=== PATIENT | female | born 1960 | race African-American/Black ===

== ENCOUNTER 2017-02-20 03:07 | Emergency (ER) | payer OTHER ==
[~2017-02-20] VITALS: Ht 182.9 cm; Wt 159.0 kg
[~2017-02-20 03:07] MED LIST: ALBU18HF INHALATION; ASPI325T4 PO; CARV12.579 PO; DONE10TA7 PO; GLIM4TAB PO; GLYB5TAB3 PO; HYDR4TAB PO; HYDR4TAB51 PO; ISOS60TA PO; LISI20TA11 PO; NIFE60TA36 PO; ONDA8TAB83 PO; PANT40TA3 PO; PARO-37 PO; SITA100T8 PO; ZOLP10TA5 PO
[2017-02-20 03:11] VITALS: Ht 182.9 cm; Wt 159.0 kg
--- NOTE | 2017-02-20 03:39 | ERD ---
ER Documentation Chief Complaint Date/Time DATE: 02/20/17 TIME: 03:38 Chief Complaint back pain, right knee pain HPI 57-year-old female presents here in emergency department for complaints of lower back pain and right knee pain after falling off a chair today. Patient was trying to sit down, landed on her buttock, started to have the pain afterwards. Patient describes the pain as throbbing pain, 6/10 scale, not better or worse with anything. Patient did not take any medications for pain. Patient also is complaining of right knee pain, since she twisted it when she fell. Describes the pain as throbbing pain, 6/0 scale, is worse upon movement. ROS All systems reviewed and are negative except as per history of present illness. Medications Home Meds Active Scripts Hydrocodone/Acetaminophen (Menlo 5-325 Tablet) 1 Each Tablet, 1 TAB PO Q6H Y for SEVERE PAIN LEVEL 7-10, #20 TAB Prov:CORONA CHAO NP 02/20/17 Cyclobenzaprine Hcl* (Cyclobenzaprine Hcl*) 10 Mg Tablet, 10 MG PO TID, #15 TAB Prov:CORONA CHAO NP 02/20/17 Ibuprofen* (Motrin*) 600 Mg Tab, 600 MG PO Q6H Y for PAIN AND OR ELEVATED TEMP, #30 TAB Prov:CORONA CHAO NP 02/20/17 Sitagliptin* (Januvia*) 100 Mg Tab, 100 MG PO DAILY for 30 Days, TAB 2 Refills Prov:HERIBERTO CASTELLANOS 10/15/15 Zolpidem Tartrate* (Zolpidem Tartrate*) 10 Mg Tablet, 10 MG PO QHS Y for INSOMNIA, #30 Prov:HERIBERTO CASTELLANOS 10/15/15 Aspirin* (Aspirin*) 325 Mg Tablet, 81 MG PO DAILY for 30 Days Prov:HERIBERTO CASTELLANOS 10/15/15 Reported Medications Hydromorphone Hcl* (Dilaudid*) 4 Mg Tablet, 4 MG PO BID Y for PAIN, TAB 12/22/15 Glyburide* (Glyburide*) 5 Mg Tablet, 5 MG PO BID, #60 TAB 12/21/15 Ondansetron Hcl* (Ondansetron Hcl*) 8 Mg Tablet, 8 MG PO Q6H Y for NAUSEA AND OR VOMITING, TAB 10/30/15 Hydromorphone Hcl* (Hydromorphone Hcl*) 4 Mg Tablet, 4 MG PO Q4H Y for PAIN, TAB 10/30/15 Paroxetine Hcl* (Paroxetine*) 20 Mg Tablet, 20 MG PO DAILY, TAB 10/30/15 Albuterol Sulfate* (Ventolin HFA*) 18 Gm Hfa.aer.ad, 2 PUFF INHALATION Q4H, #1 INHALER 10/30/15 Glimepiride* (Glimepiride*) 4 Mg Tablet, 4 MG PO DAILY, #30 07/10/15 Carvedilol* (Carvedilol*) 12.5 Mg Tablet, 12.5 MG PO BID, #30 07/10/15 Isosorbide Mononitrate* (Isosorbide Mononitrate*) 60 Mg Tab.er.24h, 60 MG PO DAILY, #30 07/10/15 Nifedipine* (Adalat CC*) 60 Mg Tablet.sa, 60 MG PO DAILY, TAB.SA 10/06/14 Lisinopril* (Lisinopril*) 20 Mg Tablet, 20 MG PO DAILY, TAB 10/06/14 Donepezil* (Aricept*) 10 Mg Tablet, 10 MG PO DAILY, TAB 10/06/14 Pantoprazole* (Protonix*) 40 Mg Tablet.dr, 40 MG PO DAILY 03/04/13 Allergies Allergies: Coded Allergies: Penicillins (Verified Allergy, Unknown, 12/21/15) PMhx/Soc History of Surgery: Yes (hysterectomy, left knee, BILATERAL BREAST, BILATERAL WRIST ) Anesthesia Reaction: No Hx Neurological Disorder: No Hx Respiratory Disorders: Yes (asthma) Hx Cardiac Disorders: Yes (HTN, heart disease) Hx Psychiatric Problems: No Hx Miscellaneous Medical Probl: Yes (diabetic) Hx Alcohol Use: No Hx Substance Use: No Hx Tobacco Use: No FmHx Family History: No coronary disease, No diabetes, No other Physical Exam Vitals Vital Signs Date Time Temp Pulse Resp B/P Pulse Ox O2 Delivery O2 Flow Rate FiO2 02/20/17 03:11 98.2 80 20 124/84 98 Physical Exam GENERAL: The patient is well developed and appropriate for usual state of health, in no apparent distress. CHEST: Clear to auscultation bilaterally. There are no rales, wheezes or rhonchi. HEART: Regular rate and rhythm. No murmurs, clicks, rubs or gallops. No S3 or S4. ABDOMEN: Soft, nontender and nondistended. Good bowel sounds. No rebound or guarding. No gross peritonitis. No gross organomegaly or masses. No Tse sign or McBurney point tenderness. BACK: No midline or flank tenderness. Tenderness on palpation on the lower back , with muscle spasms noted. EXTREMITIES: Able to do full range of motion of the right knee without any restriction. No deformity, no tenderness on palpation. Equal pulses bilaterally. There is no peripheral clubbing, cyanosis or edema. No focal swelling or erythema. Full range of motion. Grossly neurovascularly intact. NEURO: Alert and oriented. Cranial nerves 2-12 intact. Motor strength in all 4 extremities with 5/5 strength. Sensation grossly intact. Normal speech and gait. SKIN: There is no apparent rash or petechia. The skin is warm and dry. HEMATOLOGIC AND LYMPHATIC: There is no evidence of excessive bruising or lymphedema. No gross cervical, axillary, or inguinal lymphadenopathy. Results 24 hrs Laboratory Tests Test 02/20/17 05:08 Bedside Glucose 222mg/dL Current Medications Medications (Trade) Dose Ordered Sig/Tanvi Route PRN Reason Start Time Stop Time Status Last Admin Dose Admin Ibuprofen (Motrin) 600 mg ONCE ONCE PO 02/20/17 05:30 02/20/17 05:31 02/20/17 05:13 Patient was given medication for pain here in emergency department, after treatment, patient verbalized feeling much better. Patient's pain is improved. PROCEDURE: XR Lumbar Spine. CLINICAL INDICATION: Back pain after fall TECHNIQUE: AP, lateral and cone-down lateral view of the lumbar spine were obtained. COMPARISON: CT lumbar spine of 11/21/2015 FINDINGS: No acute fracture or dislocation seen. Facet hypertrophy in lower lumbar spine. Mild degenerative disk changes L2-3 through L5-S1. Inferior vena cava filter. Degenerative changes in visualized lower thoracic spine. Round metallic radiodensity likely artifacts projected over left upper quadrant of abdomen. IMPRESSION: Degenerative changes. No acute fracture seen. Inferior vena cava filter. Please see above. RPTAT: HJES .Lucio Moran MD, MD Date Time Electronically viewed and signed by .Lucio Moran MD, on 02/20/2017 05:12 .S/ CC: CORONA CHAO [address] [employer] Procedures/MDM Medical Decision Making: Patient's pain is most likely consistent with a back contusion. There is no suspicion for neurovascular compromise. Patient has intact sensation and circulation of the affected extremity and distal extremities. No incontinence, no suspicion for cauda equina syndrome, no saddle anesthesia, no symptoms of any acute bacterial infection, no symptoms of any perirectal abscesses, pilonidal cyst.There is low suspicion for septic arthritis. Patient does not have any fever. No symptoms of any aortic dissection or aortic aneurysm. Radiology exam does not show any fractures. Patient's right knee pain most likely is consistent with a right knee sprain, low suspicion for any fracture, able to do full range of motion without any or should patient, no deformity. Radiology exams of the right knee not indicated at this time. Disposition: Home. Patient is given prescription for ibuprofen for mild to moderate pain, Menlo for severe pain, Flexeril for muscle spasm. Patient was advised to avoid heavy lifting , apply warm compresses on affected area. Patient was advised that if symptoms are worse, numbness, tingling, high fever, unable to move joint, worsening symptoms, to return to emergency department immediately. Otherwise, patient is advised to follow up with the primary care doctor in 5-7 days for reevaluation of symptoms. Departure Diagnosis: Primary Impression: Back contusion Encounter type: initial encounter Laterality: unspecified laterality Qualified Code: S20.229A - Back contusion, unspecified laterality, initial encounter Additional Impression: Knee sprain Encounter type: initial encounter Involved ligament of knee: unspecified ligament Laterality: left Qualified Code: S83.92XA - Sprain of left knee, unspecified ligament, initial encounter Condition: Stable Patient Instructions: Contusion, Back Additional Instructions: Patient is given prescription for ibuprofen for mild to moderate pain, tramadol for severe pain, Flexeril for muscle spasm. Patient was advised to avoid heavy lifting , apply warm compresses on affected area. Patient was advised that if symptoms are worse, numbness, tingling, high fever, unable to move joint, worsening symptoms, to return to emergency department immediately. Otherwise, patient is advised to follow up with the primary care doctor in 5-7 days for reevaluation of symptoms. CORONA CHAO NP Feb 20, 2017 03:39
--- NOTE | 2017-02-20 05:12 | RADRPT ---
PROCEDURE: XR Lumbar Spine. CLINICAL INDICATION: Back pain after fall TECHNIQUE: AP, lateral and cone-down lateral view of the lumbar spine were obtained. COMPARISON: CT lumbar spine of 11/21/2015 FINDINGS: No acute fracture or dislocation seen. Facet hypertrophy in lower lumbar spine. Mild degenerative d isk changes L2-3 through L5-S1. Inferior vena cava filter. Degenerative changes in visualized lowe r thoracic spine. Round metallic radiodensity likely artifacts projected over left upper quadrant of abdomen. IMPRESSION: Degenerative changes. No acute fracture seen. Inferior vena cava filter. Please see above. RPTAT: HJES .Lucio Moran MD, MD Date Time Electronically viewed and signed by .Lucio Moran MD, MD on 02/20/2017 05:12 .S/
[2017-02-20] MEDS ORDERED: IBUP-1542 PO (05:23)
[2017-02-20] MEDS ORDERED: HYDR-906 PO (05:23)
[2017-02-20] MEDS ORDERED: CYCL-319 PO (05:23)
[2017-02-20] MEDS ORDERED: IBUPROFEN 600 MG TAB PO ONE (05:30)
== END 2017-02-20 05:36 | disposition home or self-care (01) ==
LOC: FTE 03:07
DX: S20.229A Contusion of unspecified back wall of thorax, initial encounter (principal); S83.92XA Sprain of unspecified site of left knee, initial encounter; J45.909 Unspecified asthma, uncomplicated; I10 Essential (primary) hypertension; I50.9 Heart failure, unspecified; E11.9 Type 2 diabetes mellitus without complications; W07.XXXA Fall from chair, initial encounter; Y92.9 Unspecified place or not applicable; Z79.82 Long term (current) use of aspirin; Z79.84 Long term (current) use of oral hypoglycemic drugs
CPT/HCPCS: 72100; 82962; Z7610

== ENCOUNTER 2017-03-06 22:12 | Emergency (ER) | END 2017-03-07 06:00 | disposition home or self-care (01) | DX: R07.9 Chest pain, unspecified (principal); D64.9 Anemia, unspecified; J45.909 Unspecified asthma, uncomplicated; I10 Essential (primary) hypertension; E11.9 Type 2 diabetes mellitus without complications; Z79.82 Long term (current) use of aspirin; Z79.84 Long term (current) use of oral hypoglycemic drugs | CPT/HCPCS: 36415; 71010; 80048; 84484; 85025; 85610; 85730; 93005; 93970; Z7502; Z7610 ==

== ENCOUNTER 2017-03-07 21:13 | Emergency (ER) | payer OTHER ==
[~2017-03-07] VITALS: Ht 182.9 cm; Wt 168.0 kg
[~2017-03-07 21:13] MED LIST changes: +ACET325T33 PO; +ALBU8.5H3 INH; +ALBUTEROL INHALER INH; +ARICEPT PO; +ASPI325T4; +ATOR10TA65 PO; +BECL8.7A5; +CARV6.2579 PO; +CELE100C85; +CHOLESTEROL; +CYCL-117; +CYCL-117 PO; +CYCL-319 PO; +DIAZ-90 PO; +DIAZ10TA4; +DIAZ10TA4 PO; +DIAZ10TA89; +DONE10TA7; +DONE5TAB46; +ENAL2.5T PO; +ESOM40CA; +FAMO-96 PO; +FERR27TA PO; +FLUC150T17 PO; +FLUO40CA PO; +FLUO40CA10 PO; +GREE1CAP PO; +HYDR-3498 PO; +HYDR-3612; +HYDR-762 PO; +HYDR-902 PO; +HYDR-906 PO; +IBUP-1542 PO; +IBUP800T25 PO; +ISOS60TA52 PO; +LAS20I PO; +LISI10TA PO; +LISI10TA2; +LISINOPRIL PO; +LOPE2CAP PO; +MAG355OR15 PO; +METF500T4 PO; +MONT10TA21; +MONT10TA21 PO; +NAPR-260 PO; +NASO17; +NASO17 NS; +NIFE30TA66; +NIFEDIPINE PO; +NO NEW MEDS; +OMEG100011 PO; +ONDA4TAB8 PO; +OXYC-281 PO; +OXYC-284 PO; +POTA20PA PO; +POTA20TA96 PO; +POTA8TAB2; +PRED20TA PO; +PROM6.25; +RANI150T5 PO; +RTPRO5; +SAME MEDS; +SIMV20TA PO; +SOTA80TA; +SOTA80TA PO; +VICES; +VITA100T7 PO; +VOLTAREN PO; +WARF7.5T PO; +ZOLP10TA; +ZOLP10TA PO; +ZYRTEC PO; +[UNRECOGNIZED DRUG - OTHER]
[2017-03-07 21:28] VITALS: Ht 182.9 cm; Wt 168.0 kg
--- NOTE | 2017-03-07 22:07 | ERD ---
ER Documentation Chief Complaint Date/Time DATE: 03/07/17 TIME: 22:04 Chief Complaint sp ground level fall, R knee pain, headache HPI 57-year-old female presents emergency department, brought in by ambulance from the streets. Complaining of right knee pain secondary to ground-level fall at around 21:00. Stated that she was walking on the sidewalk, talking to another person when she tripped and fell, landed on her right knee. She was able to walk after the fall. Stated that she was just here this morning. She normally walks with a walker. Stated that there was no changes in her walking. Stated that the only medication that would help her pain was Pettigrew 5 mg tablet. Denies headache, loss of consciousness, dizziness, blurry vision, changes in vision, photophobia, facial pain, ear pain, throat pain, difficulty swallowing, neck pain, shoulder pain, chest pain, cough, hemoptysis, abdominal pain, back pain, loss of appetite, nausea, vomiting, hematochezia, diarrhea, constipation, urinary symptoms, , the possibility of being , bladder and bowel incontinences, extremity weakness, extremity tenderness, numbness or tingling sensation, difficulty walking, recent travel, recent exposure to illness, recent antibiotic use in the last 3 months, fever, chills. Allergies to penicillin. Past medical history of asthma, hypertension, diabetes, hyperlipidemia. Surgical history is of hysterectomy, bilateral wrist surgery, bilateral hand surgery, left knee replacement, filter placement to the left side of her abdomen. Social: Not working at this time. Denies smoking, use of alcoholic beverages, use of illegal drugs. Physical examination: Right knee has no deformity with good and full range of motion. Patient refuses x-ray for this. Treatment: Pettigrew. [] y/o female presents to ED for []. Described as []. Pain rate of 0/0. Started while []. Worse when []. Relieved by []. Took [] with no relief. Denies headache, loss of consciousness, dizziness, blurry vision, changes in vision, photophobia, facial pain, ear pain, throat pain, difficulty swallowing, neck pain, shoulder pain, chest pain, cough, hemoptysis, abdominal pain, back pain, loss of appetite, nausea, vomiting, hematochezia, diarrhea, constipation, urinary symptoms, , the possibility of being , bladder and bowel incontinences, extremity weakness, extremity tenderness, numbness or tingling sensation, difficulty walking, recent travel, recent exposure to illness, recent antibiotic use in the last 3 months, fever, chills. Allergy: PMH: Family medical history: AO LMP: Medications: Surgery: Primary Social History: Denies smoking, use of alcohol, use of illegal drugs. ROS All systems reviewed and are negative except as per history of present illness. Medications Home Meds Active Scripts Hydrocodone/Acetaminophen (Pettigrew 5-325 Tablet) 1 Each Tablet, 1 TAB PO Q6H Y for SEVERE PAIN LEVEL 7-10, #20 TAB Prov:CORONA CHAO NP 02/20/17 Cyclobenzaprine Hcl* (Cyclobenzaprine Hcl*) 10 Mg Tablet, 10 MG PO TID, #15 TAB Prov:CORONA CHAO NP 02/20/17 Ibuprofen* (Motrin*) 600 Mg Tab, 600 MG PO Q6H Y for PAIN AND OR ELEVATED TEMP, #30 TAB Prov:CORONA CHAO NP 02/20/17 Sitagliptin* (Januvia*) 100 Mg Tab, 100 MG PO DAILY for 30 Days, TAB 2 Refills Prov:HERIBERTO CASTELLANOS 10/15/15 Zolpidem Tartrate* (Zolpidem Tartrate*) 10 Mg Tablet, 10 MG PO QHS Y for INSOMNIA, #30 Prov:HERIBERTO CASTELLANOS Norma 10/15/15 Aspirin* (Aspirin*) 325 Mg Tablet, 81 MG PO DAILY for 30 Days Prov:HERIBERTO CASTELLANOS 10/15/15 Reported Medications Atorvastatin Calcium (Atorvastatin Calcium) 10 Mg Tablet, 10 MG PO QHS, #30 TAB 03/07/17 Fluoxetine Hcl* (Fluoxetine Hcl*) 40 Mg Capsule, 40 MG PO DAILY, CAP 03/07/17 Metformin* (Glucophage*) 500 Mg Tab, 500 MG PO WITH BREAKFAST, #30 TAB 03/07/17 Hydrocodone/Acetaminophen (Pettigrew 10-325 Tablet) 1 Each Tablet, 1 EACH PO, TAB 03/07/17 Hydrocodone Bit-Acetaminophen (Hydrocodone Bit-APAP) 5-325MG Tablet, 1 TAB PO Q6H Y for PAIN, TAB 03/07/17 Hydromorphone Hcl* (Dilaudid*) 4 Mg Tablet, 4 MG PO BID Y for PAIN, TAB 12/22/15 Glyburide* (Glyburide*) 5 Mg Tablet, 5 MG PO BID, #60 TAB 12/21/15 Ondansetron Hcl* (Ondansetron Hcl*) 8 Mg Tablet, 8 MG PO Q6H Y for NAUSEA AND OR VOMITING, TAB 10/30/15 Hydromorphone Hcl* (Hydromorphone Hcl*) 4 Mg Tablet, 4 MG PO Q4H Y for PAIN, TAB 10/30/15 Paroxetine Hcl* (Paroxetine*) 20 Mg Tablet, 20 MG PO DAILY, TAB 10/30/15 Albuterol Sulfate* (Ventolin HFA*) 18 Gm Hfa.aer.ad, 2 PUFF INHALATION Q4H, #1 INHALER 10/30/15 Carvedilol* (Carvedilol*) 12.5 Mg Tablet, 12.5 MG PO BID, #30 07/10/15 Isosorbide Mononitrate* (Isosorbide Mononitrate*) 60 Mg Tab.er.24h, 60 MG PO DAILY, #30 07/10/15 Nifedipine* (Adalat CC*) 60 Mg Tablet.sa, 60 MG PO DAILY, TAB.SA 10/06/14 Lisinopril* (Lisinopril*) 20 Mg Tablet, 20 MG PO DAILY, TAB 10/06/14 Donepezil* (Aricept*) 10 Mg Tablet, 10 MG PO DAILY, TAB 10/06/14 Pantoprazole* (Protonix*) 40 Mg Tablet.dr, 40 MG PO DAILY 03/04/13 Discontinued Reported Medications Glimepiride* (Glimepiride*) 4 Mg Tablet, 4 MG PO DAILY, #30 07/10/15 Allergies Allergies: Coded Allergies: Penicillins (Unverified Allergy, Unknown, 03/07/17) PMhx/Soc History of Surgery: Yes (hysterectomy, left knee, BILATERAL BREAST, BILATERAL WRIST ) Anesthesia Reaction: No Hx Neurological Disorder: No Hx Respiratory Disorders: Yes (asthma) Hx Cardiac Disorders: Yes (HTN, heart disease) Hx Psychiatric Problems: No Hx Miscellaneous Medical Probl: Yes (diabetic) Hx Alcohol Use: No Hx Substance Use: No Hx Tobacco Use: No Physical Exam Vitals Vital Signs Date Time Temp Pulse Resp B/P Pulse Ox O2 Delivery O2 Flow Rate FiO2 03/07/17 23:45 98.3 101 20 98 Room Air 03/07/17 21:28 98.9 108 20 129/71 96 Physical Exam CONSTITUTIONAL: Well-appearing; well-nourished; in no apparent distress. HEAD: Normocephalic; atraumatic. EYES: Conjunctiva clear, sclera non-icteric, EOM intact. PERRL Ears: Hearing intact. EACs clear, TMs non-bulging, non-inflamed, translucent & mobile, ossicles normal appearance, No obstructions, no erythema, no discharges Nose: No obstructions. No polyps. No external lesions. Mucosa non-inflamed. No external lesions, septum and turbinates normal. No rhinorrhea. No discharges. Frontal sinus is non-tender to palpation. Maxillary sinus is non-tender to palpation. MOUTH: Moist mucous membranes, no lesion, no obstructions, no vesicles, no thrush, patent airway Throat: Uvula in midline. Right tonsil is +1 with no erythema, no exudate. Left tonsil is +1 with no erythema, no exudate. Tolerating secretions well. Good gag reflex. Patent airway. Neck: Supple, without lesions, bruits, or adenopathy. No mass. Thyroid non- enlarged and non-tender to palpation. CHEST: Symmetrical chest. Respirations even and not labored. No retractions noted. CARDIOVASCULAR: Normal S1, S2. RRR. No murmurs, gallops. RESPIRATORY: Normal chest excursion with respiration; breath sounds clear and equal bilaterally; no wheezes, rhonchi, or rales. Breathing even and unlabored. Speaking in clear, full, and complete sentences w/ ease. ABDOMEN: Normal bowel sounds normal. Soft, round, non-distended, non-guarding, no tenderness, no rebound, no organomegaly, no masses, no pulsating abdominal mass. No hernia. No peritoneal signs. : No CVA tenderness. BACK: Symmetrical shoulder. Spine is midline without deformity, tenderness. No evidence of trauma or deformity. PELVIS: Stable pelvis. No evidence of trauma or deformity. MUSCULOSKELETAL: Normal gait and station. No misalignment, asymmetry, crepitation, defects, tenderness, masses, effusions, decreased range of motion, instability, atrophy or abnormal strength or tone in the head, neck, spine, ribs , pelvis or extremities. No calf tenderness. Right knee has no deformity with good and full range of motion. NEUROVASCULAR: Distal pulses are present. Pedal pulse are present, equal, and normal. Capillary refills are < 2 seconds. NEUROLOGIC: Alert and oriented x4. Speaks full and clear sentences. Cranial Nerves II-XII normal. Sensation to pain, touch, and proprioception normal. Grossly unremarkable. No neurologic deficits. Romberg test is negative. PSYCHOLOGICAL: The patients mood and manner are appropriate. No hallucinations , delusions. Not SI. Not HI. Has the capacity to decide for self SKIN: Normal for age and ethnicity; warm; dry; good turgor; no apparent lesions or exudates. No rashes, hives, discoloration. Intact. Results 24 hrs Current Medications Medications (Trade) Dose Ordered Sig/Tanvi Route PRN Reason Start Time Stop Time Status Last Admin Dose Admin Acetaminophen/ Hydrocodone Bitart (Pettigrew (10/325)) 1 tab ONCE ONCE PO 03/07/17 22:30 03/07/17 22:31 DC 03/07/17 22:36 Procedures/MDM Examination: Please see physical examination. Disease process, medical treatment was explained to the patient and family member. They verbalized understanding and agreed with the diagnostic tests, medical treatment, and follow-up care. Re-evaluation: Denies headache, dizziness, blurry vision, neck pain, shoulder pain, chest pain, back pain, abdominal pain, nausea, vomiting. No episode of emesis in the emergency department. Alert and oriented 4. Speaks full and clear sentences. Respirations even and unlabored. Lung sounds clear to auscultation. Active bowel sounds. There is no right upper/right lower/ epigastric/left upper/left lower abdominal tenderness and light and deep palpation. Negative on Rovsings sign. Negative Mars sign. Able to jump 5 times without developing right-sided abdominal pain. No peritoneal signs. Ambulatory with steady gait. No neurovascular deficits. No neurological deficits. Musculoskeletal reexaminations are unremarkable. Patient stated there is no deficits at this time. Consultation: Differential diagnosis: Fracture versus contusion versus sprain. Medical decision makin-year-old female presents emergency department, brought in by ambulance from the streets. Complaining of right knee pain secondary to ground-level fall at around 21:00. Stated that she was walking on the sidewalk, talking to another person when she tripped and fell, landed on her right knee. She was able to walk after the fall. Stated that she was just here this morning. She normally walks with a walker. Stated that there was no changes in her walking. Stated that the only medication that would help her pain was Pettigrew 5 mg tablet. Patient's complaint, patient history about her complaint, my physical findings are consistent with my final diagnosis of knee pain. Medications prescribed are the following: None. Patient and family member are made aware of the side effects and adverse reactions of the medications prescribed. Instructed on when to seek emergent and medical attention in case allergic/anaphylactic reactions or severe side effects and or adverse reactions to medications. Patient and family member verbalized understanding. Patient instructed Instructed to follow-up with his PCP in 24-48 hours. Instructed to Call 911 for chest pain, shortness of breath. Advised to come back here in ED as soon as possible for severity of symptoms which includes but not limited to: any new symptoms; shortness of breath/difficulty of breathing; cardiovascular changes; severe gastrointestinal symptoms; signs and symptoms of bleeding and or infection; signs of compartment syndrome/neurovascular changes; neurological changes/deficits. Patient and family member verbalized understanding. Upon discharge, patient is alert and oriented x 4, speaks full and clear sentences, denies pain, has no neurological deficits, has no neurovascular deficits, difficulty of breathing. Breathing even and unlabored. Lung sounds are clear to auscultation. Not in distress. Appears comfortable. Ambulatory with steady gait. Appears satisfied with care provided here in ED. Departure Diagnosis: Primary Impression: Multiple complaints Additional Impression: Knee pain Condition: Stable Additional Instructions: Instructed to follow-up with his PCP in 24-48 hours. Instructed to Call 911 for chest pain, shortness of breath. Advised to come back here in ED as soon as possible for severity of symptoms which includes but not limited to: any new symptoms; shortness of breath/difficulty of breathing; cardiovascular changes; severe gastrointestinal symptoms; signs and symptoms of bleeding and or infection; signs of compartment syndrome/neurovascular changes; neurological changes/deficits. Patient and family member verbalized understanding. JULIUS DEWITT Mar 07, 2017 22:07
[2017-03-07] MEDS ORDERED: HYDROCODONE/APAP (10/325) TAB PO ONE (22:30)
[2017-03-07 23:45] VITALS: PULSE 101; RESP 20; TEMP 98.3
== END 2017-03-07 23:48 | disposition home or self-care (01) ==
LOC: FTE 21:13 → E/R 23:48
DX: M25.561 Pain in right knee (principal); R51 Headache; J45.909 Unspecified asthma, uncomplicated; I10 Essential (primary) hypertension; E11.9 Type 2 diabetes mellitus without complications; Z79.82 Long term (current) use of aspirin; Z79.84 Long term (current) use of oral hypoglycemic drugs
CPT/HCPCS: Z7502; Z7610; 99283

== ENCOUNTER 2017-03-30 12:50 | Emergency (ER) | payer OTHER ==
[~2017-03-30] VITALS: Ht 180.3 cm; Wt 152.7 kg
[~2017-03-30 12:50] MED LIST changes: -ACET325T33 PO; -ALBU8.5H3 INH; -ALBUTEROL INHALER INH; -ARICEPT PO; -ASPI325T4; -BECL8.7A5; -CARV6.2579 PO; -CELE100C85; -CHOLESTEROL; -CYCL-117; -CYCL-117 PO; -DIAZ-90 PO; -DIAZ10TA4; -DIAZ10TA4 PO; -DIAZ10TA89; -DONE10TA7; -DONE5TAB46; -ENAL2.5T PO; -ESOM40CA; -FAMO-96 PO; -FERR27TA PO; -FLUC150T17 PO; -FLUO40CA10 PO; -GLIM4TAB PO; -GREE1CAP PO; -HYDR-3612; -HYDR-762 PO; -IBUP800T25 PO; -ISOS60TA52 PO; -LAS20I PO; -LISI10TA PO; -LISI10TA2; -LISINOPRIL PO; -LOPE2CAP PO; -MAG355OR15 PO; -MONT10TA21; -MONT10TA21 PO; -NAPR-260 PO; -NASO17; -NASO17 NS; -NIFE30TA66; -NIFEDIPINE PO; -NO NEW MEDS; -OMEG100011 PO; -ONDA4TAB8 PO; -OXYC-281 PO; -OXYC-284 PO; -POTA20PA PO; -POTA20TA96 PO; -POTA8TAB2; -PRED20TA PO; -PROM6.25; -RANI150T5 PO; -RTPRO5; -SAME MEDS; -SIMV20TA PO; -SOTA80TA; -SOTA80TA PO; -VICES; -VITA100T7 PO; -VOLTAREN PO; -WARF7.5T PO; -ZOLP10TA; -ZOLP10TA PO; -ZYRTEC PO; -[UNRECOGNIZED DRUG - OTHER]
[2017-03-30 12:52] VITALS: Ht 180.3 cm; Wt 152.7 kg
[2017-03-30] MEDS ORDERED: DIAZEPAM 2 MG TAB PO ONE (14:00)
[2017-03-30] MEDS ORDERED: KETOROLAC 60 MG INJ IM STA (14:00)
[2017-03-30] MEDS ORDERED: LIDOCAINE 2% VISC 15 ML CUP PO ONE (14:00)
[2017-03-30] MEDS ORDERED: HYDROCODONE/APAP (10/325) TAB PO ONE (15:30)
[2017-03-30] MEDS ORDERED: IBUP-1542 PO (16:14)
--- NOTE | 2017-03-30 16:39 | ERD ---
ER Documentation Chief Complaint Date/Time DATE: 03/30/17 TIME: 16:18 Chief Complaint CAME IN VIA EMS DUE TO MECHANICAL FALL WITH SHOULDERS AND R KNEE PAIN HPI This is a 57-year-old female with history of chronic pain that presents to the ER stating that earlier last night she fell off of her bed landing on her shoulder and hernia. Patient denies any numbness or tingling of her left shoulder. She states that pain is severe and worse whenever she lifts her shoulder. Patient also complaining of right knee pain which she has had chronically. Patient is also stating that she has a mass in her throat and that because of this she is having pain with swallowing. Patient denies any difficulty in swallowing. She denies any chest pain or shortness of breath. ROS 12 point review of systems was done, all negative except per HPI. Medications Home Meds Active Scripts Ibuprofen* (Motrin*) 600 Mg Tab, 600 MG PO Q6, #30 TAB Prov:HESHAM FERREIRA 03/30/17 Hydrocodone/Acetaminophen ([place] 5-325 Tablet) 1 Each Tablet, 1 TAB PO Q6H Y for SEVERE PAIN LEVEL 7-10, #20 TAB Prov:CORONA CHAO NP 02/20/17 Cyclobenzaprine Hcl* (Cyclobenzaprine Hcl*) 10 Mg Tablet, 10 MG PO TID, #15 TAB Prov:CORONA CHAO NP 02/20/17 Ibuprofen* (Motrin*) 600 Mg Tab, 600 MG PO Q6H Y for PAIN AND OR ELEVATED TEMP, #30 TAB Prov:CORONA CHAO NP 02/20/17 Sitagliptin* (Januvia*) 100 Mg Tab, 100 MG PO DAILY for 30 Days, TAB 2 Refills Prov:HERIBERTO CASTELLANOS 10/15/15 Zolpidem Tartrate* (Zolpidem Tartrate*) 10 Mg Tablet, 10 MG PO QHS Y for INSOMNIA, #30 Prov:HERIBERTO CASTELLANOS. 10/15/15 Aspirin* (Aspirin*) 325 Mg Tablet, 81 MG PO DAILY for 30 Days Prov:HERIBERTO CASTELLANOS 10/15/15 Reported Medications Atorvastatin Calcium (Atorvastatin Calcium) 10 Mg Tablet, 10 MG PO QHS, #30 TAB 03/07/17 Fluoxetine Hcl* (Fluoxetine Hcl*) 40 Mg Capsule, 40 MG PO DAILY, CAP 03/07/17 Metformin* (Glucophage*) 500 Mg Tab, 500 MG PO WITH BREAKFAST, #30 TAB 03/07/17 Hydrocodone/Acetaminophen ([place] 10-325 Tablet) 1 Each Tablet, 1 EACH PO, TAB 03/07/17 Hydrocodone Bit-Acetaminophen (Hydrocodone Bit-APAP) 5-325MG Tablet, 1 TAB PO Q6H Y for PAIN, TAB 03/07/17 Hydromorphone Hcl* (Dilaudid*) 4 Mg Tablet, 4 MG PO BID Y for PAIN, TAB 12/22/15 Glyburide* (Glyburide*) 5 Mg Tablet, 5 MG PO BID, #60 TAB 12/21/15 Ondansetron Hcl* (Ondansetron Hcl*) 8 Mg Tablet, 8 MG PO Q6H Y for NAUSEA AND OR VOMITING, TAB 10/30/15 Hydromorphone Hcl* (Hydromorphone Hcl*) 4 Mg Tablet, 4 MG PO Q4H Y for PAIN, TAB 10/30/15 Paroxetine Hcl* (Paroxetine*) 20 Mg Tablet, 20 MG PO DAILY, TAB 10/30/15 Albuterol Sulfate* (Ventolin HFA*) 18 Gm Hfa.aer.ad, 2 PUFF INHALATION Q4H, #1 INHALER 10/30/15 Carvedilol* (Carvedilol*) 12.5 Mg Tablet, 12.5 MG PO BID, #30 07/10/15 Isosorbide Mononitrate* (Isosorbide Mononitrate*) 60 Mg Tab.er.24h, 60 MG PO DAILY, #30 07/10/15 Nifedipine* (Adalat CC*) 60 Mg Tablet.sa, 60 MG PO DAILY, TAB.SA 10/06/14 Lisinopril* (Lisinopril*) 20 Mg Tablet, 20 MG PO DAILY, TAB 10/06/14 Donepezil* (Aricept*) 10 Mg Tablet, 10 MG PO DAILY, TAB 10/06/14 Pantoprazole* (Protonix*) 40 Mg Tablet.dr, 40 MG PO DAILY 03/04/13 Allergies Allergies: Coded Allergies: Penicillins (Unverified Allergy, Unknown, 03/30/17) PMhx/Soc History of Surgery: Yes (hysterectomy, left knee, BILATERAL BREAST, BILATERAL WRIST ) Anesthesia Reaction: No Hx Neurological Disorder: No Hx Respiratory Disorders: Yes (asthma) Hx Cardiac Disorders: Yes (HTN, heart disease) Hx Psychiatric Problems: No Hx Miscellaneous Medical Probl: Yes (diabetic) Hx Alcohol Use: No Hx Substance Use: No Hx Tobacco Use: No Smoking Status: Never smoker Physical Exam Vitals Vital Signs Date Time Temp Pulse Resp B/P Pulse Ox O2 Delivery O2 Flow Rate FiO2 03/30/17 12:52 98.5 92 18 142/88 98 Physical Exam GENERAL: The patient is well developed and appropriate for usual state of health , in no apparent distress. HEENT: Atraumatic. NECK: C-spine is soft and supple. There is no cervical lymphadenopathy. CHEST: Clear to auscultation bilaterally. There are no rales, wheezes or rhonchi. HEART: Regular rate and rhythm. No murmurs, clicks, rubs or gallops. BACK: No midline or flank tenderness. EXTREMITIES: The left shoulder is without obvious asymmetry or deformity when compared to the right shoulder. No surface trauma, ecchymosis, crepitus. No bony deformity or prominence of the humeral head. No erythema, warmth, swelling. Not tender to palpation over the clavicle, AC joint, acromion, scapula or humeral head. Not told to position of the bicipital groove or soft tissues. Patient has normal and nonpainful range of motion. Negative drop arm test. Patient does not have any neck pain, she is not tender along the C- spine. She does not have any elbow pain. Right knee: Patient has painful extension and flexion of the right knee. There is no erythema, warmth to touch, edema. NEURO: Alert and oriented. SKIN: There is no apparent rash or petechia. The skin is warm and dry. Results 24 hrs Current Medications Medications (Trade) Dose Ordered Sig/Tanvi Route PRN Reason Start Time Stop Time Status Last Admin Dose Admin Ketorolac Tromethamine (Toradol) 60 mg ONCE STAT IM 03/30/17 14:00 03/30/17 14:02 DC 03/30/17 14:28 Diazepam (Valium) 2 mg ONCE ONCE PO 03/30/17 14:00 03/30/17 14:02 DC 03/30/17 14:28 Lidocaine (Xylocaine (Viscous)) 15 ml ONCE ONCE PO 03/30/17 14:00 03/30/17 14:02 DC 03/30/17 14:29 Acetaminophen/ Hydrocodone Bitart ([place] (10/325)) 1 tab ONCE ONCE PO 03/30/17 15:30 03/30/17 15:31 DC 03/30/17 15:30 Procedures/MDM I reviewed patient's past medical records and patient has been to the ER multiple times and other ER is for chronic pain. I pulled the patient's cures report and patient just received 120 Dilaudid less than 2 weeks ago. Patient refused imaging and stated that she wanted her [place], Valium so that she could go home and eat. I explained to patient that it was important to get imaging of her shoulder especially since she fell, however patient does not want them. Suspicion for cardiac etiology of shoulder pain is low as patient does not have any chest pain and her pain started after trauma. At this time I do not feel comfortable sending patient home with narcotic medications as she has a medical history of drug-seeking behavior and has a lot of narcotics at home. Patient will be sent home with ibuprofen. I did give patient 1 Valium and one [place] in the ER. Patient is to follow-up with her primary care doctor within 1-2 days return to ER sooner if symptoms worsen. My medical decision making shared with the patient understands and agrees with plan. Departure Diagnosis: Primary Impression: Drug-seeking behavior Additional Impression: Multiple complaints Condition: Stable Patient Instructions: Chronic Pain Additional Instructions: Call your primary care doctor TOMORROW for an appointment during the next 1-2 days.See the doctor sooner or return here if your condition worsens before your appointment time. HESHAM FERREIRA Mar 30, 2017 16:39
[2017-03-30 16:59] VITALS: BP 128/68; PULSE 71; RESP 18; TEMP 98.5
== END 2017-03-30 17:00 | disposition home or self-care (01) ==
LOC: FTE 12:50
DX: S49.92XA Unspecified injury of left shoulder and upper arm, initial encounter (principal); E11.9 Type 2 diabetes mellitus without complications; I10 Essential (primary) hypertension; J45.909 Unspecified asthma, uncomplicated; S49.91XA Unspecified injury of right shoulder and upper arm, initial encounter; W06.XXXA Fall from bed, initial encounter; Y92.9 Unspecified place or not applicable; Z76.5 Malingerer [conscious simulation]; Z79.82 Long term (current) use of aspirin; Z79.84 Long term (current) use of oral hypoglycemic drugs
CPT/HCPCS: 96372; J1885; Z7502; Z7610

== ENCOUNTER 2017-04-15 23:55 | Emergency (ER) | payer SELFPAY ==
[~2017-04-15] VITALS: Ht 157.5 cm; Wt 165.9 kg
[2017-04-16 00:13] VITALS: Ht 157.5 cm; Wt 165.9 kg
== END 2017-04-16 02:26 | disposition left against medical advice (07) ==
LOC: E/R 04-16 00:01
DX: Z53.21 Procedure and treatment not carried out due to patient leaving prior to being seen by health care provider (principal)

== ENCOUNTER 2017-04-22 18:21 | Emergency (ER) | payer OTHER ==
[~2017-04-22] VITALS: Ht 165.1 cm; Wt 162.0 kg
[2017-04-22 18:31] VITALS: Ht 165.1 cm; Wt 162.0 kg
[2017-04-22] MEDS ORDERED: AZIT500T3 PO (21:38)
[2017-04-22] MEDS ORDERED: CETI10CA PO (21:38)
[2017-04-22] MEDS ORDERED: FLUT9.9S NASAL (21:38)
[2017-04-22] MEDS ORDERED: KETOROLAC 60 MG INJ IM STA (21:56)
--- NOTE | 2017-04-22 22:07 | ERD ---
ER Documentation Chief Complaint Date/Time DATE: 04/22/17 TIME: 22:04 Chief Complaint She is complaining of runny nose nasal congestion and mucus running back her throat and some headache that started today. HPI 57-year-old female presents to emergency department for complaints of runny nose nasal congestion, mucus running back the throat, postnasal drip, throat discomfort and headache that started today. Patient describes the pain as sharp pain,6/10 scale, not better or worse with anything. Patient feels like she has a sinus infection, has been taking Benadryl at home with only mild relief. Denies any stridor or shortness of breath. Patient denies any chest pain. Denies any other symptoms. Patient states that because of this, she feels nauseous. ROS All systems reviewed and are negative except as per history of present illness. Medications Home Meds Active Scripts Cetirizine Hcl* (Zyrtec*) 10 Mg Capsule, 10 MG PO DAILY, #30 TAB.CHEW Prov:CORONA CHAO NP 04/22/17 Fluticasone Propionate (Flonase Allergy Relief) 9.9 Ml [place].susp, 1 SPRAY NASAL BID, #1 BOTTLE TO EACH NOSTRIL Prov:CORONA CHAO NP 04/22/17 Azithromycin* (Zithromax*) 500 Mg Tablet, 500 MG PO DAILY for 3 Days, TAB Prov:CORONA CHAO NP 04/22/17 Ibuprofen* (Motrin*) 600 Mg Tab, 600 MG PO Q6, #30 TAB Prov:HESHAM FERREIRA 03/30/17 Hydrocodone/Acetaminophen ([place] 5-325 Tablet) 1 Each Tablet, 1 TAB PO Q6H Y for SEVERE PAIN LEVEL 7-10, #20 TAB Prov:CORONA CHAO NP 02/20/17 Cyclobenzaprine Hcl* (Cyclobenzaprine Hcl*) 10 Mg Tablet, 10 MG PO TID, #15 TAB Prov:CORONA CHAO NP 02/20/17 Ibuprofen* (Motrin*) 600 Mg Tab, 600 MG PO Q6H Y for PAIN AND OR ELEVATED TEMP, #30 TAB Prov:CORONA CHAO NP 02/20/17 Sitagliptin* (Januvia*) 100 Mg Tab, 100 MG PO DAILY for 30 Days, TAB 2 Refills Prov:HERIBERTO CASTELLANOS. 10/15/15 Zolpidem Tartrate* (Zolpidem Tartrate*) 10 Mg Tablet, 10 MG PO QHS Y for INSOMNIA, #30 Prov:HERIBERTO CASTELLANOS. 10/15/15 Aspirin* (Aspirin*) 325 Mg Tablet, 81 MG PO DAILY for 30 Days Prov:HERIBERTO CASTELLANOS. 10/15/15 Reported Medications Atorvastatin Calcium (Atorvastatin Calcium) 10 Mg Tablet, 10 MG PO QHS, #30 TAB 03/07/17 Fluoxetine Hcl* (Fluoxetine Hcl*) 40 Mg Capsule, 40 MG PO DAILY, CAP 03/07/17 Metformin* (Glucophage*) 500 Mg Tab, 500 MG PO WITH BREAKFAST, #30 TAB 03/07/17 Hydrocodone/Acetaminophen ([place] 10-325 Tablet) 1 Each Tablet, 1 EACH PO, TAB 03/07/17 Hydrocodone Bit-Acetaminophen (Hydrocodone Bit-APAP) 5-325MG Tablet, 1 TAB PO Q6H Y for PAIN, TAB 03/07/17 Hydromorphone Hcl* (Dilaudid*) 4 Mg Tablet, 4 MG PO BID Y for PAIN, TAB 12/22/15 Glyburide* (Glyburide*) 5 Mg Tablet, 5 MG PO BID, #60 TAB 12/21/15 Ondansetron Hcl* (Ondansetron Hcl*) 8 Mg Tablet, 8 MG PO Q6H Y for NAUSEA AND OR VOMITING, TAB 10/30/15 Hydromorphone Hcl* (Hydromorphone Hcl*) 4 Mg Tablet, 4 MG PO Q4H Y for PAIN, TAB 10/30/15 Paroxetine Hcl* (Paroxetine*) 20 Mg Tablet, 20 MG PO DAILY, TAB 10/30/15 Albuterol Sulfate* (Ventolin HFA*) 18 Gm Hfa.aer.ad, 2 PUFF INHALATION Q4H, #1 INHALER 10/30/15 Carvedilol* (Carvedilol*) 12.5 Mg Tablet, 12.5 MG PO BID, #30 07/10/15 Isosorbide Mononitrate* (Isosorbide Mononitrate*) 60 Mg Tab.er.24h, 60 MG PO DAILY, #30 12/20/15 Nifedipine* (Adalat CC*) 60 Mg Tablet.sa, 60 MG PO DAILY, TAB.SA 10/06/14 Lisinopril* (Lisinopril*) 20 Mg Tablet, 20 MG PO DAILY, TAB 10/06/14 Donepezil* (Aricept*) 10 Mg Tablet, 10 MG PO DAILY, TAB 10/06/14 Pantoprazole* (Protonix*) 40 Mg Tablet.dr, 40 MG PO DAILY 03/04/13 Allergies Allergies: Coded Allergies: Penicillins (Unverified Allergy, Unknown, 03/30/17) PMhx/Soc History of Surgery: Yes (hysterectomy, left knee, BILATERAL BREAST, BILATERAL WRIST ) Anesthesia Reaction: No Hx Neurological Disorder: No Hx Respiratory Disorders: Yes (asthma) Hx Cardiac Disorders: Yes (HTN, heart disease) Hx Psychiatric Problems: No Hx Miscellaneous Medical Probl: Yes (diabetic) Hx Alcohol Use: No Hx Substance Use: No Hx Tobacco Use: No Smoking Status: Never smoker FmHx Family History: No coronary disease, No diabetes, No other Physical Exam Vitals Vital Signs Date Time Temp Pulse Resp B/P Pulse Ox O2 Delivery O2 Flow Rate FiO2 04/22/17 18:31 98.6 98 20 120/65 98 Physical Exam GENERAL: The patient is well developed and appropriate for usual state of health, in no apparent distress. HEENT: Atraumatic. Ears: Normal tympanic membrane, no erythema or bulging. No ear canal swelling. No ear discharge. Nose: normal nasal turbinates, nasal turbinates, tenderness on palpation of maxillary sinuses, postnasal drip noted.. Throat: oropharynx clear. Nasal drip noted. No lymphadenopathy. CHEST: Clear to auscultation bilaterally. There are no rales, wheezes or rhonchi. HEART: Regular rate and rhythm. No murmurs, clicks, rubs or gallops. No S3 or S4. ABDOMEN: Soft, nontender and nondistended. Good bowel sounds. No rebound or guarding. No gross peritonitis. No gross organomegaly or masses. No Tse sign or McBurney point tenderness. BACK: No midline or flank tenderness. EXTREMITIES: Equal pulses bilaterally. There is no peripheral clubbing, cyanosis or edema. No focal swelling or erythema. Full range of motion. Grossly neurovascularly intact. NEURO: Alert and oriented. Cranial nerves 2-12 intact. Motor strength in all 4 extremities with 5/5 strength. Sensation grossly intact. Normal speech and gait. SKIN: There is no apparent rash or petechia. The skin is warm and dry. HEMATOLOGIC AND LYMPHATIC: There is no evidence of excessive bruising or lymphedema. No gross cervical, axillary, or inguinal lymphadenopathy. Results 24 hrs Laboratory Tests Test 04/22/17 21:52 Bedside Glucose 191mg/dL Current Medications Medications (Trade) Dose Ordered Sig/Tanvi Route PRN Reason Start Time Stop Time Status Last Admin Dose Admin Ketorolac Tromethamine (Toradol) 60 mg ONCE STAT IM 04/22/17 21:56 04/22/17 21:58 DC Toradol was given for pain. Tolerated medication well. Procedures/MDM Medical decision making: Patient symptoms most likely is consistent with acute bacterial rhinosinusitis. At this time, no symptoms of any abscesses facial abscess, sepsis, patient appears once hemodynamically stable. No symptoms of strep throat. Patient was given Flonase, azithromycin, Zyrtec, Zofran, is advised to follow-up with primary doctor in 2-3 days for reevaluation of symptoms. Patient was advised to return to emergency department for any worsening symptoms. Disposition: Home. Stable. Departure Diagnosis: Primary Impression: Acute rhinosinusitis Condition: Stable Patient Instructions: Sinusitis, CORONA Garner NP Apr 22, 2017 22:07
[2017-04-22] MEDS ORDERED: ONDA4TAB14 PO (22:21)
[2017-04-24] MEDS ORDERED: MELA5TAB21 PO (13:13)
== END 2017-04-22 22:25 | disposition home or self-care (01) ==
LOC: FTE 18:21
DX: J01.90 Acute sinusitis, unspecified (principal); I10 Essential (primary) hypertension; J45.909 Unspecified asthma, uncomplicated; E11.9 Type 2 diabetes mellitus without complications; Z79.82 Long term (current) use of aspirin; Z79.84 Long term (current) use of oral hypoglycemic drugs
CPT/HCPCS: 82962; 96372; J1885; Z7502

== ENCOUNTER 2017-04-24 10:57 | Emergency (ER) | END 2017-04-24 14:02 | disposition home or self-care (01) | DX: L29.9 Pruritus, unspecified (principal); I10 Essential (primary) hypertension; J45.909 Unspecified asthma, uncomplicated; E11.9 Type 2 diabetes mellitus without complications; Z79.82 Long term (current) use of aspirin; Z79.84 Long term (current) use of oral hypoglycemic drugs | CPT/HCPCS: 96372; J1100; Z7502 ==

== ENCOUNTER 2017-05-29 14:10 | Emergency (ER) | payer OTHER ==
[~2017-05-29] VITALS: Wt 136.4 kg
[~2017-05-29 14:10] MED LIST changes: +AZIT500T3 PO; +CETI10CA PO; +FLUT9.9S NASAL; +MELA5TAB21 PO; +ONDA4TAB14 PO
[2017-05-29 14:14] VITALS: Wt 136.4 kg
--- NOTE | 2017-05-29 16:46 | RADRPT ---
PROCEDURE: US Lower extremity Venous. CLINICAL INDICATION: Bilateral leg swelling TECHNIQUE: Multiple sonographic images of the bilateral lower extremity deep venous system was obt ained utilizing thacker scale, color-flow, compressive sonography and doppler imaging with augmentation . COMPARISON: 03/06/2017 FINDINGS: There is normal compressibility, phasicity and Doppler flow within the bilateral common femoral, fem oral and popliteal veins. Visualized portions of the calf veins are patent. IMPRESSION: No sonographic evidence for deep venous thrombosis. RPTAT:AAJJ Physician Shanell Date Time Electronically viewed and signed by Kayley Frankel Physician on 05/29/2017 16:46 /
--- NOTE | 2017-05-29 17:18 | ERD ---
ER Documentation Chief Complaint Chief Complaint bib ems cc back pain, conversing on cellphone during triage ROS All systems reviewed and are negative except as per history of present illness. Medications Home Meds Active Scripts Melatonin (Melatonin) 5 Mg Tab.ir.er, 5 MG PO QHS, #30 Prov:MIRA BAUGH PA-C 04/24/17 Ondansetron (Ondansetron Odt) 4 Mg Tab.rapdis, 4 MG PO Q8 Y for NAUSEA AND/OR VOMITING, #30 TAB Prov:CORONA CHAO NP 04/22/17 Cetirizine Hcl* (Zyrtec*) 10 Mg Capsule, 10 MG PO DAILY, #30 TAB.CHEW Prov:CORONA CHAO NP 04/22/17 Fluticasone Propionate (Flonase Allergy Relief) 9.9 Ml [place].susp, 1 SPRAY NASAL BID, #1 BOTTLE TO EACH NOSTRIL Prov:CORONA CHAO NP 04/22/17 Azithromycin* (Zithromax*) 500 Mg Tablet, 500 MG PO DAILY for 3 Days, TAB Prov:CORONA CHAO NP 04/22/17 Ibuprofen* (Motrin*) 600 Mg Tab, 600 MG PO Q6, #30 TAB Prov:HESHAM FERREIRA 03/30/17 Hydrocodone/Acetaminophen ([place] 5-325 Tablet) 1 Each Tablet, 1 TAB PO Q6H Y for SEVERE PAIN LEVEL 7-10, #20 TAB Prov:CORONA CHAO NP 02/20/17 Cyclobenzaprine Hcl* (Cyclobenzaprine Hcl*) 10 Mg Tablet, 10 MG PO TID, #15 TAB Prov:CORONA CHAO NP 02/20/17 Ibuprofen* (Motrin*) 600 Mg Tab, 600 MG PO Q6H Y for PAIN AND OR ELEVATED TEMP, #30 TAB Prov:CORONA CHAO NP 02/20/17 Sitagliptin* (Januvia*) 100 Mg Tab, 100 MG PO DAILY for 30 Days, TAB 2 Refills Prov:HERIBERTO CASTELLANOS 10/15/15 Zolpidem Tartrate* (Zolpidem Tartrate*) 10 Mg Tablet, 10 MG PO QHS Y for INSOMNIA, #30 Prov:HERIBERTO CASTELLANOS. 10/15/15 Aspirin* (Aspirin*) 325 Mg Tablet, 81 MG PO DAILY for 30 Days Prov:HERIBERTO CASTELLANOS. 10/15/15 Reported Medications Atorvastatin Calcium (Atorvastatin Calcium) 10 Mg Tablet, 10 MG PO QHS, #30 TAB 03/07/17 Fluoxetine Hcl* (Fluoxetine Hcl*) 40 Mg Capsule, 40 MG PO DAILY, CAP 03/07/17 Metformin* (Glucophage*) 500 Mg Tab, 500 MG PO WITH BREAKFAST, #30 TAB 03/07/17 Hydrocodone/Acetaminophen ([place] 10-325 Tablet) 1 Each Tablet, 1 EACH PO, TAB 03/07/17 Hydrocodone Bit-Acetaminophen (Hydrocodone Bit-APAP) 5-325MG Tablet, 1 TAB PO Q6H Y for PAIN, TAB 03/07/17 Hydromorphone Hcl* (Dilaudid*) 4 Mg Tablet, 4 MG PO BID Y for PAIN, TAB 12/22/15 Glyburide* (Glyburide*) 5 Mg Tablet, 5 MG PO BID, #60 TAB 12/21/15 Ondansetron Hcl* (Ondansetron Hcl*) 8 Mg Tablet, 8 MG PO Q6H Y for NAUSEA AND OR VOMITING, TAB 10/30/15 Hydromorphone Hcl* (Hydromorphone Hcl*) 4 Mg Tablet, 4 MG PO Q4H Y for PAIN, TAB 10/30/15 Paroxetine Hcl* (Paroxetine*) 20 Mg Tablet, 20 MG PO DAILY, TAB 10/30/15 Albuterol Sulfate* (Ventolin HFA*) 18 Gm Hfa.aer.ad, 2 PUFF INHALATION Q4H, #1 INHALER 10/30/15 Carvedilol* (Carvedilol*) 12.5 Mg Tablet, 12.5 MG PO BID, #30 07/10/15 Isosorbide Mononitrate* (Isosorbide Mononitrate*) 60 Mg Tab.er.24h, 60 MG PO DAILY, #30 07/10/15 Nifedipine* (Adalat CC*) 60 Mg Tablet.sa, 60 MG PO DAILY, TAB.SA 10/06/14 Lisinopril* (Lisinopril*) 20 Mg Tablet, 20 MG PO DAILY, TAB 10/06/14 Donepezil* (Aricept*) 10 Mg Tablet, 10 MG PO DAILY, TAB 10/06/14 Pantoprazole* (Protonix*) 40 Mg Tablet.dr, 40 MG PO DAILY 03/04/13 Allergies Allergies: Coded Allergies: Penicillins (Unverified Allergy, Unknown, 03/30/17) PMhx/Soc History of Surgery: Yes (hysterectomy, left knee, BILATERAL BREAST, BILATERAL WRIST ) Anesthesia Reaction: No Hx Neurological Disorder: No Hx Respiratory Disorders: Yes (asthma) Hx Cardiac Disorders: Yes (HTN, heart disease, A-fib) Hx Psychiatric Problems: No Hx Miscellaneous Medical Probl: Yes (DM) Hx Alcohol Use: No Hx Substance Use: Yes (Medical Marijuana) Hx Tobacco Use: No Physical Exam Vitals Vital Signs Date Time Temp Pulse Resp B/P Pulse Ox O2 Delivery O2 Flow Rate FiO2 05/29/17 14:14 98.6 93 20 126/74 96 Physical Exam Const: Morbidly obese 57-year-old female in no acute distress Head: Atraumatic Eyes: Normal Conjunctiva ENT: Normal External Ears, Nose and Mouth. Neck: Full range of motion..~ No meningismus. Resp: Clear to auscultation bilaterally Cardio: Regular rate and rhythm, no murmurs Abd: Soft, non tender, non distended. Normal bowel sounds Skin: No petechiae or rashes Back: No midline or flank tenderness Ext: Marked swelling of legs bilaterally with left lower extremity swollen more. No pain or warmth. Neur: Awake and alert Psych: Normal Mood and Affect Procedures/MDM Morbidly obese 57-year-old female presenting with a chief complaint of possible lymph node moving from the right side to the left side. Patient states the pain is 6 out of 10. Has been evaluated by PCP who gave her a referral to outpatient surgery. Patient has history of driving over 10 hours and unilateral leg swelling. Ultrasound was obtained and read as unremarkable. I have no suspicion for PE, DVT, ACS, or other cardiopulmonary pathologies. I have no suspicion for serious bacterial infection. No palpated lymph nodes on physical examination. No tenderness palpation. Abdominal exam unremarkable. Most likely diagnosis is swelling of unknown etiology. Patient has pain medications at home. Have told the patient that she needs to follow-up with the outpatient surgery recommended by PCP. That we do not do surgery here in the emergency department. There are no indications for emergent surgery consult. I have spoke with the patient regarding their condition and future management. They have verbally responded that they understand their status and treatment plan. The patients vitals are stable, and their current condition is appropriate for discharge. The patient will be given discharge instructions with return precautions. Departure Diagnosis: Primary Impression: Leg swelling Condition: Stable Patient Instructions: Lymphedema Additional Instructions: Follow up with your PCP within the next 1-3 days for a more thorough evaluation and a possible referral to a specialist. Return the the emergency department immediately if symptoms worsen or change. If you have any questions regarding medications, ask your pharmacist or us before you leave. If any adverse reactions occur while taking your medications, discontinue the treatment and return to the emergency department immediately. Take your medications as directed, and complete the entire course of treatment. UZIEL ROCHA PA-C May 29, 2017 17:18
[2017-05-29 18:20] VITALS: BP 128/74; PULSE 74; RESP 20
[2017-06-01] MEDS ORDERED: MELO-210 PO (05:57)
== END 2017-05-29 18:21 | disposition home or self-care (01) ==
LOC: FTE 14:10
DX: R22.43 Localized swelling, mass and lump, lower limb, bilateral (principal); J45.909 Unspecified asthma, uncomplicated; I10 Essential (primary) hypertension; E11.9 Type 2 diabetes mellitus without complications; Z79.82 Long term (current) use of aspirin; Z79.84 Long term (current) use of oral hypoglycemic drugs
CPT/HCPCS: 93970; Z7502

== ENCOUNTER 2017-05-30 20:54 | Emergency (ER) | payer OTHER ==
[~2017-05-30] VITALS: Ht 182.9 cm; Wt 161.0 kg
[2017-05-30 20:55] VITALS: Ht 182.9 cm; Wt 161.0 kg
--- NOTE | 2017-05-30 22:59 | ERD ---
ER Documentation Chief Complaint Chief Complaint c/o bilateral knee pain. States was bumped @ grocery store. HPI The patient is a 57-year-old female, presenting to the ER because of bilateral knee pain after she bumped into the pole at the supermarket while using the shopping electric cart. She denies any other injury, c/o suicidal in the emergency department and has a plan; however she does not want to disclose the plan. She is not cooperative with history and physical. She denies smokes nor drinks Past medical history: Asthma, hypertension, CAD, atrial fibrillation, diabetes mellitus, dyslipidemia, chronic pain syndrome Past surgical history: Hysterectomy, left knee ROS All systems reviewed and are negative except as per history of present illness. Medications Home Meds Active Scripts Melatonin (Melatonin) 5 Mg Tab.ir.er, 5 MG PO QHS, #30 Prov:MIRA BAUGH PA-C 04/24/17 Ondansetron (Ondansetron Odt) 4 Mg Tab.rapdis, 4 MG PO Q8 Y for NAUSEA AND/OR VOMITING, #30 TAB Prov:CORONA CHAO NP 04/22/17 Cetirizine Hcl* (Zyrtec*) 10 Mg Capsule, 10 MG PO DAILY, #30 TAB.CHEW Prov:CORONA CHAO NP 04/22/17 Fluticasone Propionate (Flonase Allergy Relief) 9.9 Ml [place].susp, 1 SPRAY NASAL BID, #1 BOTTLE TO EACH NOSTRIL Prov:CORONA CHAO NP 04/22/17 Azithromycin* (Zithromax*) 500 Mg Tablet, 500 MG PO DAILY for 3 Days, TAB Prov:CORONA CHAO NP 04/22/17 Ibuprofen* (Motrin*) 600 Mg Tab, 600 MG PO Q6, #30 TAB Prov:HESHAM FERREIRA 03/30/17 Hydrocodone/Acetaminophen ([place] 5-325 Tablet) 1 Each Tablet, 1 TAB PO Q6H Y for SEVERE PAIN LEVEL 7-10, #20 TAB Prov:CORONA CHAO NP 02/20/17 Cyclobenzaprine Hcl* (Cyclobenzaprine Hcl*) 10 Mg Tablet, 10 MG PO TID, #15 TAB Prov:CORONA CHAO NP 02/20/17 Ibuprofen* (Motrin*) 600 Mg Tab, 600 MG PO Q6H Y for PAIN AND OR ELEVATED TEMP, #30 TAB Prov:CORONA CHAO REALTIME [employer] REPORTER 02/20/17 Sitagliptin* (Januvia*) 100 Mg Tab, 100 MG PO DAILY for 30 Days, TAB 2 Refills Prov:HERIBERTO CASTELLANOS. 10/15/15 Zolpidem Tartrate* (Zolpidem Tartrate*) 10 Mg Tablet, 10 MG PO QHS Y for INSOMNIA, #30 Prov:HERIBERTO CASTELLANOS . 10/15/15 Aspirin* (Aspirin*) 325 Mg Tablet, 81 MG PO DAILY for 30 Days Prov:HERIBERTO CASTELLANOS . 10/15/15 Reported Medications Atorvastatin Calcium (Atorvastatin Calcium) 10 Mg Tablet, 10 MG PO QHS, #30 TAB 03/07/17 Fluoxetine Hcl* (Fluoxetine Hcl*) 40 Mg Capsule, 40 MG PO DAILY, CAP 03/07/17 Metformin* (Glucophage*) 500 Mg Tab, 500 MG PO WITH BREAKFAST, #30 TAB 03/07/17 Hydrocodone/Acetaminophen ([place] 10-325 Tablet) 1 Each Tablet, 1 EACH PO, TAB 03/07/17 Hydrocodone Bit-Acetaminophen (Hydrocodone Bit-APAP) 5-325MG Tablet, 1 TAB PO Q6H Y for PAIN, TAB 03/07/17 Hydromorphone Hcl* (Dilaudid*) 4 Mg Tablet, 4 MG PO BID Y for PAIN, TAB 12/22/15 Glyburide* (Glyburide*) 5 Mg Tablet, 5 MG PO BID, #60 TAB 12/21/15 Ondansetron Hcl* (Ondansetron Hcl*) 8 Mg Tablet, 8 MG PO Q6H Y for NAUSEA AND OR VOMITING, TAB 10/30/15 Hydromorphone Hcl* (Hydromorphone Hcl*) 4 Mg Tablet, 4 MG PO Q4H Y for PAIN, TAB 10/30/15 Paroxetine Hcl* (Paroxetine*) 20 Mg Tablet, 20 MG PO DAILY, TAB 10/30/15 Albuterol Sulfate* (Ventolin HFA*) 18 Gm Hfa.aer.ad, 2 PUFF INHALATION Q4H, #1 INHALER 10/30/15 Carvedilol* (Carvedilol*) 12.5 Mg Tablet, 12.5 MG PO BID, #30 07/10/15 Isosorbide Mononitrate* (Isosorbide Mononitrate*) 60 Mg Tab.er.24h, 60 MG PO DAILY, #30 07/10/15 Nifedipine* (Adalat CC*) 60 Mg Tablet.sa, 60 MG PO DAILY, TAB.SA 10/06/14 Lisinopril* (Lisinopril*) 20 Mg Tablet, 20 MG PO DAILY, TAB 10/06/14 Donepezil* (Aricept*) 10 Mg Tablet, 10 MG PO DAILY, TAB 10/06/14 Pantoprazole* (Protonix*) 40 Mg Tablet.dr, 40 MG PO DAILY 03/04/13 Allergies Allergies: Coded Allergies: Penicillins (Unverified Allergy, Unknown, 03/30/17) PMhx/Soc History of Surgery: Yes (hysterectomy, left knee, BILATERAL BREAST, BILATERAL WRIST ) Anesthesia Reaction: No Hx Neurological Disorder: No Hx Respiratory Disorders: Yes (asthma) Hx Cardiac Disorders: Yes (HTN, heart disease, A-fib) Hx Psychiatric Problems: No Hx Miscellaneous Medical Probl: Yes (DM) Hx Alcohol Use: No Hx Substance Use: Yes (Medical Marijuana) Hx Tobacco Use: No Physical Exam Vitals Vital Signs Date Time Temp Pulse Resp B/P Pulse Ox O2 Delivery O2 Flow Rate FiO2 05/30/17 20:55 97.2 71 18 111/55 98 Physical Exam Const: No acute distress. Head: Atraumatic. Eyes: Normal Conjunctiva. ENT: Normal External Ears, Nose and Mouth. Neck: Full range of motion. No meningismus. Resp: Clear to auscultation bilaterally. Cardio: Regular rate and rhythm. Abd: Soft, non distended, normal bowel sounds, non tender. Skin: No petechiae or rashes. Back: No midline or flank tenderness. Ext: Bilateral knee with minimal and vague tenderness, no calf tenderness Neur: Awake and alert. No focal deficit Psych: Normal Mood and Affect. Result Diagram: 05/30/17 0838 05/30/178 Results 24 hrs Laboratory Tests Test 05/30/17 23:18 05/31/17 02:00 White Blood Count 5.310^3/ul Red Blood Count 4.1610^6/ul Hemoglobin 11.1g/dl Hematocrit 35.5% Mean Corpuscular Volume 85.3fl Mean Corpuscular Hemoglobin 26.7pg Mean Corpuscular Hemoglobin Concent 31.3g/dl Red Cell Distribution Width 15.1% Platelet Count 50991^3/UL Mean Platelet Volume 11.2fl Neutrophils % 62.8% Lymphocytes % 21.6% Monocytes % 11.4% Eosinophils % 3.6% Basophils % 0.4% Nucleated Red Blood Cells % 0.0/100WBC Neutrophils # 3.310^3/ul Lymphocytes # 1.110^3/ul Monocytes # 0.610^3/ul Eosinophils # 0.210^3/ul Basophils # 0.010^3/ul Nucleated Red Blood Cells # 0.010^3/ul Sodium Level 139mmol/L Potassium Level 4.8mmol/L Chloride Level 100mmol/L Carbon Dioxide Level 30mmol/L Anion Gap 14 Blood Urea Nitrogen 12mg/dl Creatinine 0.76mg/dl Glucose Level 166mg/dl Calcium Level 9.3mg/dl Total Bilirubin 0.1mg/dl Direct Bilirubin 0.00mg/dl Indirect Bilirubin 0.1mg/dl Aspartate Amino Transf (AST/SGOT) 23IU/L Alanine Aminotransferase (ALT/SGPT) 27IU/L Alkaline Phosphatase 109IU/L Total Protein 6.7g/dl Albumin 3.6g/dl Globulin 3.10g/dl Albumin/Globulin Ratio 1.16 Salicylates Level < 1.0mg/dl Acetaminophen Level < 10.0ug/ml Ethyl Alcohol Level < 10.0mg/dl Urine Color STRAW Urine Clarity CLEAR Urine pH 5.0 Urine Specific [place] 1.006 Urine Ketones NEGATIVEmg/dL Urine Nitrite NEGATIVEmg/dL Urine Bilirubin NEGATIVEmg/dL Urine Urobilinogen NEGATIVEmg/dL Urine Leukocyte Esterase NEGATIVELeu/ul Urine Hemoglobin NEGATIVEmg/dL Urine Glucose NEGATIVEmg/dL Urine Total Protein NEGATIVEmg/dl Urine Opiates Screen Positive Urine Barbiturates Negative Urine Amphetamines Screen Negative Urine Benzodiazepines Screen Positive Urine Cocaine Screen Negative Urine Cannabinoids Negative Current Medications Medications (Trade) Dose Ordered Sig/Tanvi Route PRN Reason Start Time Stop Time Status Last Admin Dose Admin Ibuprofen (Motrin) 600 mg ONCE ONCE PO 05/31/17 02:00 05/31/17 02:01 DC Procedures/MDM [place] [id number] Radiology Main Line: [phone] DIAGNOSTIC IMAGING REPORT Patient: ROSSANA YE : 1960 Age: 57 Sex: F MR #: [id number] DOS: 05/30/17 2305 Ordering MD: UZIEL STARKS MD Location: E/R Room/Bed: PROCEDURE: Right knee x-ray CLINICAL INDICATION: Pain. TECHNIQUE: AP, lateral and oblique views of the knee were obtained. COMPARISON: CR KNEE 11/21/2015 FINDINGS: There is normal mineralization. No acute fracture or dislocation is seen. There is severe narrowing of the medial and patellofemoral compartments and moderately severe narrowing of the lateral compartment. Superior and inferior patellar degenerative enthesopathic changes are present. No acute fracture or dislocation. Small suprapatellar joint effusion. Moderate pretibial soft tissue edema extends from the suprapatellar region to the pretibial bursa. IMPRESSION: 1. Severe medial and patellofemoral and moderately severe lateral compartmental degenerate narrowing. 2. Superior and inferior patellar degenerative enthesopathic changes. 3. Small suprapatellar joint effusion. 4. Anterior soft tissue edema. RPTAT: HRSR Physician Anneliese Date Time Electronically viewed and signed by Elliott Quiros Physician on 05/31/2017 02 :13 RR/ CC: UZIEL STARKS MD [place] [id number] Radiology Main Line: [phone] DIAGNOSTIC IMAGING REPORT Patient: ROSSANA YE : 1960 Age: 57 Sex: F MR #: [id number] DOS: 05/30/17 2305 Ordering MD: UZIEL STARKS MD Location: E/R Room/Bed: PROCEDURE: Left knee x-ray CLINICAL INDICATION: Pain. TECHNIQUE: AP, oblique and lateral views of the knee were obtained. COMPARISON: KNEE 05/31/2017; JUAN ANTONIO KNEE 11/21/2015 FINDINGS: Total left knee arthroplasty changes with posterior patellar resurfacing are present without evidence of a periprosthetic fracture or hardware loosening. Superior patellar degenerative enthesopathic changes are noted. Small osteochondroma arises from the proximal medial tibial metadiaphysis There is a small to moderate suprapatellar joint effusion. Anterior soft tissue edema extends from the suprapatellar region to the pretibial bursa. IMPRESSION: 1. Total left knee arthroplasty changes without evidence of a periprosthetic fracture or hardware loosening. 2. Superior patellar degenerative enthesopathic changes. 3. Osteochondroma arising from the proximal medial tibial metadiaphysis. 4. Small to moderate sized suprapatellar joint effusion. 5. Anterior soft tissue swelling. RPTAT: HRSR Physician Anneliese Date Time Electronically viewed and signed by Physician Anneliese on 05/31/2017 02 :17 RR/ CC: UZIEL STARKS MD MEDICAL MAKING DECISION: The patient is a 57-year-old female, presenting with acute suicidal ideation, acute bilateral knee pain. She was treated with Motrin for pain with good response The differential diagnoses considered include but are not limited to fracture, contusion, sprain, internal derangement, anxiety attack, panic attack, depression Departure Diagnosis: Primary Impression: Suicidal ideations Additional Impressions: Knee pain, bilateral Anemia Condition: Stable Comments She was evaluated by telepsychiatrist who put on 5150 hold UZIEL STARKS MD May 30, 2017 22:59
--- NOTE | 2017-05-30 22:59 | ERD ---
ER Documentation Chief Complaint Chief Complaint c/o bilateral knee pain. States was bumped @ grocery store. HPI The patient is a 57-year-old female, presenting to the ER because of bilateral knee pain after she bumped into the pole at the supermarket while using the shopping electric cart. She denies any other injury, c/o suicidal in the emergency department and has a plan; however she does not want to disclose the plan. She is not cooperative with history and physical. She denies smokes nor drinks Past medical history: Asthma, hypertension, CAD, atrial fibrillation, diabetes mellitus, dyslipidemia, chronic pain syndrome Past surgical history: Hysterectomy, left knee ROS All systems reviewed and are negative except as per history of present illness. Medications Home Meds Active Scripts Melatonin (Melatonin) 5 Mg Tab.ir.er, 5 MG PO QHS, #30 Prov:MIRA BAUGH PA-C 04/24/17 Ondansetron (Ondansetron Odt) 4 Mg Tab.rapdis, 4 MG PO Q8 Y for NAUSEA AND/OR VOMITING, #30 TAB Prov:CORONA CHAO NP 04/22/17 Cetirizine Hcl* (Zyrtec*) 10 Mg Capsule, 10 MG PO DAILY, #30 TAB.CHEW Prov:CORONA CHAO NP 04/22/17 Fluticasone Propionate (Flonase Allergy Relief) 9.9 Ml [place].susp, 1 SPRAY NASAL BID, #1 BOTTLE TO EACH NOSTRIL Prov:CORONA CHAO NP 04/22/17 Azithromycin* (Zithromax*) 500 Mg Tablet, 500 MG PO DAILY for 3 Days, TAB Prov:CORONA CHAO NP 04/22/17 Ibuprofen* (Motrin*) 600 Mg Tab, 600 MG PO Q6, #30 TAB Prov:HESHAM FERREIRA 03/30/17 Hydrocodone/Acetaminophen ([place] 5-325 Tablet) 1 Each Tablet, 1 TAB PO Q6H Y for SEVERE PAIN LEVEL 7-10, #20 TAB Prov:CORONA CHAO NP 02/20/17 Cyclobenzaprine Hcl* (Cyclobenzaprine Hcl*) 10 Mg Tablet, 10 MG PO TID, #15 TAB Prov:CORONA CHAO NP 02/20/17 Ibuprofen* (Motrin*) 600 Mg Tab, 600 MG PO Q6H Y for PAIN AND OR ELEVATED TEMP, #30 TAB Prov:CORONA CHAO [employer]ED RESEARCH TECHNICIAN 02/20/17 Sitagliptin* (Januvia*) 100 Mg Tab, 100 MG PO DAILY for 30 Days, TAB 2 Refills Prov:HERIBERTO CASTELLANOS. 10/15/15 Zolpidem Tartrate* (Zolpidem Tartrate*) 10 Mg Tablet, 10 MG PO QHS Y for INSOMNIA, #30 Prov:HERIBERTO CASTELLANOS . 10/15/15 Aspirin* (Aspirin*) 325 Mg Tablet, 81 MG PO DAILY for 30 Days Prov:HERIBERTO CASTELLANOS . 10/15/15 Reported Medications Atorvastatin Calcium (Atorvastatin Calcium) 10 Mg Tablet, 10 MG PO QHS, #30 TAB 03/07/17 Fluoxetine Hcl* (Fluoxetine Hcl*) 40 Mg Capsule, 40 MG PO DAILY, CAP 03/07/17 Metformin* (Glucophage*) 500 Mg Tab, 500 MG PO WITH BREAKFAST, #30 TAB 03/07/17 Hydrocodone/Acetaminophen ([place] 10-325 Tablet) 1 Each Tablet, 1 EACH PO, TAB 03/07/17 Hydrocodone Bit-Acetaminophen (Hydrocodone Bit-APAP) 5-325MG Tablet, 1 TAB PO Q6H Y for PAIN, TAB 03/07/17 Hydromorphone Hcl* (Dilaudid*) 4 Mg Tablet, 4 MG PO BID Y for PAIN, TAB 12/22/15 Glyburide* (Glyburide*) 5 Mg Tablet, 5 MG PO BID, #60 TAB 12/21/15 Ondansetron Hcl* (Ondansetron Hcl*) 8 Mg Tablet, 8 MG PO Q6H Y for NAUSEA AND OR VOMITING, TAB 10/30/15 Hydromorphone Hcl* (Hydromorphone Hcl*) 4 Mg Tablet, 4 MG PO Q4H Y for PAIN, TAB 10/30/15 Paroxetine Hcl* (Paroxetine*) 20 Mg Tablet, 20 MG PO DAILY, TAB 10/30/15 Albuterol Sulfate* (Ventolin HFA*) 18 Gm Hfa.aer.ad, 2 PUFF INHALATION Q4H, #1 INHALER 10/30/15 Carvedilol* (Carvedilol*) 12.5 Mg Tablet, 12.5 MG PO BID, #30 07/10/15 Isosorbide Mononitrate* (Isosorbide Mononitrate*) 60 Mg Tab.er.24h, 60 MG PO DAILY, #30 07/10/15 Nifedipine* (Adalat CC*) 60 Mg Tablet.sa, 60 MG PO DAILY, TAB.SA 10/06/14 Lisinopril* (Lisinopril*) 20 Mg Tablet, 20 MG PO DAILY, TAB 10/06/14 Donepezil* (Aricept*) 10 Mg Tablet, 10 MG PO DAILY, TAB 10/06/14 Pantoprazole* (Protonix*) 40 Mg Tablet.dr, 40 MG PO DAILY 03/04/13 Allergies Allergies: Coded Allergies: Penicillins (Unverified Allergy, Unknown, 03/30/17) PMhx/Soc History of Surgery: Yes (hysterectomy, left knee, BILATERAL BREAST, BILATERAL WRIST ) Anesthesia Reaction: No Hx Neurological Disorder: No Hx Respiratory Disorders: Yes (asthma) Hx Cardiac Disorders: Yes (HTN, heart disease, A-fib) Hx Psychiatric Problems: No Hx Miscellaneous Medical Probl: Yes (DM) Hx Alcohol Use: No Hx Substance Use: Yes (Medical Marijuana) Hx Tobacco Use: No Physical Exam Vitals Vital Signs Date Time Temp Pulse Resp B/P Pulse Ox O2 Delivery O2 Flow Rate FiO2 05/30/17 20:55 97.2 71 18 111/55 98 Physical Exam Const: No acute distress. Head: Atraumatic. Eyes: Normal Conjunctiva. ENT: Normal External Ears, Nose and Mouth. Neck: Full range of motion. No meningismus. Resp: Clear to auscultation bilaterally. Cardio: Regular rate and rhythm. Abd: Soft, non distended, normal bowel sounds, non tender. Skin: No petechiae or rashes. Back: No midline or flank tenderness. Ext: Bilateral knee with minimal and vague tenderness, no calf tenderness Neur: Awake and alert. No focal deficit Psych: Normal Mood and Affect. Result Diagram: 05/30/17 4138 05/30/178 Results 24 hrs Laboratory Tests Test 05/30/17 23:18 05/31/17 02:00 White Blood Count 5.310^3/ul Red Blood Count 4.1610^6/ul Hemoglobin 11.1g/dl Hematocrit 35.5% Mean Corpuscular Volume 85.3fl Mean Corpuscular Hemoglobin 26.7pg Mean Corpuscular Hemoglobin Concent 31.3g/dl Red Cell Distribution Width 15.1% Platelet Count 39345^3/UL Mean Platelet Volume 11.2fl Neutrophils % 62.8% Lymphocytes % 21.6% Monocytes % 11.4% Eosinophils % 3.6% Basophils % 0.4% Nucleated Red Blood Cells % 0.0/100WBC Neutrophils # 3.310^3/ul Lymphocytes # 1.110^3/ul Monocytes # 0.610^3/ul Eosinophils # 0.210^3/ul Basophils # 0.010^3/ul Nucleated Red Blood Cells # 0.010^3/ul Sodium Level 139mmol/L Potassium Level 4.8mmol/L Chloride Level 100mmol/L Carbon Dioxide Level 30mmol/L Anion Gap 14 Blood Urea Nitrogen 12mg/dl Creatinine 0.76mg/dl Glucose Level 166mg/dl Calcium Level 9.3mg/dl Total Bilirubin 0.1mg/dl Direct Bilirubin 0.00mg/dl Indirect Bilirubin 0.1mg/dl Aspartate Amino Transf (AST/SGOT) 23IU/L Alanine Aminotransferase (ALT/SGPT) 27IU/L Alkaline Phosphatase 109IU/L Total Protein 6.7g/dl Albumin 3.6g/dl Globulin 3.10g/dl Albumin/Globulin Ratio 1.16 Salicylates Level < 1.0mg/dl Acetaminophen Level < 10.0ug/ml Ethyl Alcohol Level < 10.0mg/dl Urine Color STRAW Urine Clarity CLEAR Urine pH 5.0 Urine Specific [place] 1.006 Urine Ketones NEGATIVEmg/dL Urine Nitrite NEGATIVEmg/dL Urine Bilirubin NEGATIVEmg/dL Urine Urobilinogen NEGATIVEmg/dL Urine Leukocyte Esterase NEGATIVELeu/ul Urine Hemoglobin NEGATIVEmg/dL Urine Glucose NEGATIVEmg/dL Urine Total Protein NEGATIVEmg/dl Urine Opiates Screen Positive Urine Barbiturates Negative Urine Amphetamines Screen Negative Urine Benzodiazepines Screen Positive Urine Cocaine Screen Negative Urine Cannabinoids Negative Current Medications Medications (Trade) Dose Ordered Sig/Tanvi Route PRN Reason Start Time Stop Time Status Last Admin Dose Admin Ibuprofen (Motrin) 600 mg ONCE ONCE PO 05/31/17 02:00 05/31/17 02:01 DC Procedures/MDM [place] [id number] Radiology Main Line: [phone] DIAGNOSTIC IMAGING REPORT Patient: ROSSANA YE : 1960 Age: 57 Sex: F MR #: [id number] DOS: 05/30/17 2305 Ordering MD: UZIEL STARKS MD Location: E/R Room/Bed: PROCEDURE: Right knee x-ray CLINICAL INDICATION: Pain. TECHNIQUE: AP, lateral and oblique views of the knee were obtained. COMPARISON: CR KNEE 11/21/2015 FINDINGS: There is normal mineralization. No acute fracture or dislocation is seen. There is severe narrowing of the medial and patellofemoral compartments and moderately severe narrowing of the lateral compartment. Superior and inferior patellar degenerative enthesopathic changes are present. No acute fracture or dislocation. Small suprapatellar joint effusion. Moderate pretibial soft tissue edema extends from the suprapatellar region to the pretibial bursa. IMPRESSION: 1. Severe medial and patellofemoral and moderately severe lateral compartmental degenerate narrowing. 2. Superior and inferior patellar degenerative enthesopathic changes. 3. Small suprapatellar joint effusion. 4. Anterior soft tissue edema. RPTAT: HRSR Physician Anneliese Date Time Electronically viewed and signed by Elliott Quiros Physician on 05/31/2017 02 :13 RR/ CC: UZIEL STARKS MD [place] [id number] Radiology Main Line: [phone] DIAGNOSTIC IMAGING REPORT Patient: ROSSANA YE : 1960 Age: 57 Sex: F MR #: [id number] DOS: 05/30/17 2305 Ordering MD: UZIEL STARKS MD Location: E/R Room/Bed: PROCEDURE: Left knee x-ray CLINICAL INDICATION: Pain. TECHNIQUE: AP, oblique and lateral views of the knee were obtained. COMPARISON: KNEE 05/31/2017; JUAN ANTONIO KNEE 11/21/2015 FINDINGS: Total left knee arthroplasty changes with posterior patellar resurfacing are present without evidence of a periprosthetic fracture or hardware loosening. Superior patellar degenerative enthesopathic changes are noted. Small osteochondroma arises from the proximal medial tibial metadiaphysis There is a small to moderate suprapatellar joint effusion. Anterior soft tissue edema extends from the suprapatellar region to the pretibial bursa. IMPRESSION: 1. Total left knee arthroplasty changes without evidence of a periprosthetic fracture or hardware loosening. 2. Superior patellar degenerative enthesopathic changes. 3. Osteochondroma arising from the proximal medial tibial metadiaphysis. 4. Small to moderate sized suprapatellar joint effusion. 5. Anterior soft tissue swelling. RPTAT: HRSR Physician Anneliese Date Time Electronically viewed and signed by Physician Anneliese on 05/31/2017 02 :17 RR/ CC: UZIEL STARKS MD MEDICAL MAKING DECISION: The patient is a 57-year-old female, presenting with acute suicidal ideation, acute bilateral knee pain. She was treated with Motrin for pain with good response The differential diagnoses considered include but are not limited to fracture, contusion, sprain, internal derangement, anxiety attack, panic attack, depression Departure Diagnosis: Primary Impression: Suicidal ideations Additional Impressions: Knee pain, bilateral Anemia Condition: Stable Comments She was evaluated by telepsychiatrist who put on 5150 hold UZIEL STARKS MD May 30, 2017 22:59
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
[2017-05-31] MEDS ORDERED: IBUPROFEN 600 MG TAB PO ONE (02:00)
--- NOTE | 2017-05-31 02:13 | RADRPT ---
PROCEDURE: Right knee x-ray CLINICAL INDICATION: Pain. TECHNIQUE: AP, lateral and oblique views of the knee were obtained. COMPARISON: CR KNEE 11/21/2015 FINDINGS: There is normal mineralization. No acute fracture or dislocation is seen. There is severe narrowing of the medial and patellofemoral compartments and moderately severe narrow ing of the lateral compartment. Superior and inferior patellar degenerative enthesopathic changes ar e present. No acute fracture or dislocation. Small suprapatellar joint effusion. Moderate pretibial soft tissue edema extends from the suprapatellar region to the pretibial bursa. IMPRESSION: 1. Severe medial and patellofemoral and moderately severe lateral compartmental degenerate narrowin g. 2. Superior and inferior patellar degenerative enthesopathic changes. 3. Small suprapatellar joint effusion. 4. Anterior soft tissue edema. RPTAT: HRSR Physician Anneliese Date Time Electronically viewed and signed by Physician Anneliese on 05/31/2017 02:13 RR/
--- NOTE | 2017-05-31 02:18 | RADRPT ---
PROCEDURE: Left knee x-ray CLINICAL INDICATION: Pain. TECHNIQUE: AP, oblique and lateral views of the knee were obtained. COMPARISON: KNEE 05/31/2017; JUAN ANTONIO KNEE 11/21/2015 FINDINGS: Total left knee arthroplasty changes with posterior patellar resurfacing are present without evidenc e of a periprosthetic fracture or hardware loosening. Superior patellar degenerative enthesopathic c hanges are noted. Small osteochondroma arises from the proximal medial tibial metadiaphysis There is a small to moderate suprapatellar joint effusion. Anterior soft tissue edema extends from the supra patellar region to the pretibial bursa. IMPRESSION: 1. Total left knee arthroplasty changes without evidence of a periprosthetic fracture or hardware lo osening. 2. Superior patellar degenerative enthesopathic changes. 3. Osteochondroma arising from the proximal medial tibial metadiaphysis. 4. Small to moderate sized suprapatellar joint effusion. 5. Anterior soft tissue swelling. RPTAT: HRSR Physician Anneliese Date Time Electronically viewed and signed by Elliott Quiros Physician on 05/31/2017 02:17 RR/
[2017-05-31] MEDS ORDERED: IBUP-1542 PO (04:29)
[2017-05-31 04:36] VITALS: BP 140/86; PULSE 70; RESP 16; TEMP 97.9
[2017-05-31] MEDS ORDERED: FLUC150T17 PO (05:13)
[2017-06-01] MEDS ORDERED: MELO-210 PO (05:57)
== END 2017-05-31 05:26 | disposition home or self-care (01) ==
LOC: E/R 20:54
DX: R45.851 Suicidal ideations (principal); M25.561 Pain in right knee; D64.9 Anemia, unspecified; J45.909 Unspecified asthma, uncomplicated; I10 Essential (primary) hypertension; I25.10 Atherosclerotic heart disease of native coronary artery without angina pectoris; E11.9 Type 2 diabetes mellitus without complications; Z79.84 Long term (current) use of oral hypoglycemic drugs; Z79.82 Long term (current) use of aspirin
CPT/HCPCS: 36415; 73562; 80053; 80306; 80307; 81003; 85025; Z7502; Z7610

== ENCOUNTER 2017-06-01 04:03 | Emergency (ER) | END 2017-06-01 08:11 | disposition home or self-care (01) | DX: M25.562 Pain in left knee (principal); M25.561 Pain in right knee; E11.9 Type 2 diabetes mellitus without complications; J45.909 Unspecified asthma, uncomplicated; I10 Essential (primary) hypertension; Z79.82 Long term (current) use of aspirin; Z79.84 Long term (current) use of oral hypoglycemic drugs ==

== ENCOUNTER 2017-06-06 22:05 | Emergency (ER) | payer OTHER ==
[~2017-06-06] VITALS: Ht 180.3 cm; Wt 168.0 kg
[~2017-06-06 22:05] MED LIST changes: +FLUC150T17 PO; +MELO-210 PO
[2017-06-06 22:10] VITALS: Ht 180.3 cm; Wt 168.0 kg
--- NOTE | 2017-06-06 22:22 | ERD ---
ER Documentation Chief Complaint Chief Complaint CP HPI The patient is a 57-year-old female, presenting to the ER because of left-sided chest pain at 9:30 PM after she has been working on her hair the whole day today. The pain is minimal, worse with movement. She took her Dilaudid 4 mg p.o. with good response. He denies chest pain with exertion/vomiting/ diaphoresis, denied dyspnea, abdominal pain, vomiting, dysuria, diarrhea She denies smoking nor drinking Past medical history: Asthma, hypertension, CAD, atrial fibrillation, diabetes mellitus, dyslipidemia, chronic pain syndrome Past surgical history: Hysterectomy, left knee ROS All systems reviewed and are negative except as per history of present illness. Medications Home Meds Active Scripts Meloxicam* (Mobic*) 15 Mg Tablet, 15 MG PO DAILY, #15 TAB Prov:TOMHAILEYJENNIFER GIBSON 06/01/17 Fluconazole* (Diflucan*) 150 Mg Tablet, 150 MG PO ONCE, #1 TAB Prov:UZIEL STARKS MD 05/31/17 Ibuprofen* (Motrin*) 600 Mg Tab, 600 MG PO Q6, #20 TAB Prov:UZIEL STARKS MD 05/31/17 Melatonin (Melatonin) 5 Mg Tab.ir.er, 5 MG PO QHS, #30 Prov:MIRA BAUGH PA-C 04/24/17 Ondansetron (Ondansetron Odt) 4 Mg Tab.rapdis, 4 MG PO Q8 Y for NAUSEA AND/OR VOMITING, #30 TAB Prov:CORONA CHAO NP 04/22/17 Cetirizine Hcl* (Zyrtec*) 10 Mg Capsule, 10 MG PO DAILY, #30 TAB.CHEW Prov:CORONA CHAO NP 04/22/17 Fluticasone Propionate (Flonase Allergy Relief) 9.9 Ml [place].susp, 1 SPRAY NASAL BID, #1 BOTTLE TO EACH NOSTRIL Prov:CORONA CHAO NP 04/22/17 Azithromycin* (Zithromax*) 500 Mg Tablet, 500 MG PO DAILY for 3 Days, TAB Prov:CORONA CHAO NP 04/22/17 Ibuprofen* (Motrin*) 600 Mg Tab, 600 MG PO Q6, #30 TAB Prov:HESHAM FERREIRA 03/30/17 Hydrocodone/Acetaminophen ([place] 5-325 Tablet) 1 Each Tablet, 1 TAB PO Q6H Y for SEVERE PAIN LEVEL 7-10, #20 TAB Prov:CORONA CHAO NP 02/20/17 Cyclobenzaprine Hcl* (Cyclobenzaprine Hcl*) 10 Mg Tablet, 10 MG PO TID, #15 TAB Prov:CORONA CHAO NP 02/20/17 Ibuprofen* (Motrin*) 600 Mg Tab, 600 MG PO Q6H Y for PAIN AND OR ELEVATED TEMP, #30 TAB Prov:CORONA CHAO [employer] 02/20/17 Sitagliptin* (Januvia*) 100 Mg Tab, 100 MG PO DAILY for 30 Days, TAB 2 Refills Prov:HERIBERTO CASTELLANOS 10/15/15 Zolpidem Tartrate* (Zolpidem Tartrate*) 10 Mg Tablet, 10 MG PO QHS Y for INSOMNIA, #30 Prov:HERIBERTO CASTELLANOS 10/15/15 Aspirin* (Aspirin*) 325 Mg Tablet, 81 MG PO DAILY for 30 Days Prov:HERIBERTO CASTELLANOS Norma 10/15/15 Reported Medications Atorvastatin Calcium (Atorvastatin Calcium) 10 Mg Tablet, 10 MG PO QHS, #30 TAB 03/07/17 Fluoxetine Hcl* (Fluoxetine Hcl*) 40 Mg Capsule, 40 MG PO DAILY, CAP 03/07/17 Metformin* (Glucophage*) 500 Mg Tab, 500 MG PO WITH BREAKFAST, #30 TAB 03/07/17 Hydrocodone/Acetaminophen ([place] 10-325 Tablet) 1 Each Tablet, 1 EACH PO, TAB 03/07/17 Hydrocodone Bit-Acetaminophen (Hydrocodone Bit-APAP) 5-325MG Tablet, 1 TAB PO Q6H Y for PAIN, TAB 03/07/17 Hydromorphone Hcl* (Dilaudid*) 4 Mg Tablet, 4 MG PO BID Y for PAIN, TAB 12/22/15 Glyburide* (Glyburide*) 5 Mg Tablet, 5 MG PO BID, #60 TAB 12/21/15 Ondansetron Hcl* (Ondansetron Hcl*) 8 Mg Tablet, 8 MG PO Q6H Y for NAUSEA AND OR VOMITING, TAB 10/30/15 Hydromorphone Hcl* (Hydromorphone Hcl*) 4 Mg Tablet, 4 MG PO Q4H Y for PAIN, TAB 10/30/15 Paroxetine Hcl* (Paroxetine*) 20 Mg Tablet, 20 MG PO DAILY, TAB 10/30/15 Albuterol Sulfate* (Ventolin HFA*) 18 Gm Hfa.aer.ad, 2 PUFF INHALATION Q4H, #1 INHALER 10/30/15 Carvedilol* (Carvedilol*) 12.5 Mg Tablet, 12.5 MG PO BID, #30 07/10/15 Isosorbide Mononitrate* (Isosorbide Mononitrate*) 60 Mg Tab.er.24h, 60 MG PO DAILY, #30 07/10/15 Nifedipine* (Adalat CC*) 60 Mg Tablet.sa, 60 MG PO DAILY, TAB.SA 10/06/14 Lisinopril* (Lisinopril*) 20 Mg Tablet, 20 MG PO DAILY, TAB 10/06/14 Donepezil* (Aricept*) 10 Mg Tablet, 10 MG PO DAILY, TAB 10/06/14 Pantoprazole* (Protonix*) 40 Mg Tablet.dr, 40 MG PO DAILY 03/04/13 Allergies Allergies: Coded Allergies: Penicillins (Unverified Allergy, Unknown, 03/30/17) PMhx/Soc History of Surgery: Yes (hysterectomy, left knee, BILATERAL BREAST, BILATERAL WRIST ) Anesthesia Reaction: No Hx Neurological Disorder: No Hx Respiratory Disorders: Yes (asthma) Hx Cardiac Disorders: Yes (HTN, A-fib) Hx Psychiatric Problems: Yes (Depression) Hx Miscellaneous Medical Probl: Yes (DM) Hx Alcohol Use: No Hx Substance Use: Yes (medical marijuana daily) Hx Tobacco Use: No Physical Exam Vitals Vital Signs Date Time Temp Pulse Resp B/P Pulse Ox O2 Delivery O2 Flow Rate FiO2 06/06/17 23:01 98.6 81 20 140/61 95 06/06/17 22:23 98.6 81 20 140/61 95 06/06/17 22:10 98.6 88 20 124/73 95 Physical Exam Const: No acute distress. Head: Atraumatic. Eyes: Normal Conjunctiva. ENT: Normal External Ears, Nose and Mouth. Neck: Full range of motion. No meningismus. Resp: Clear to auscultation bilaterally. Cardio: Regular rate and rhythm.Left-sided chest pain on palpation, no crepitus, no erythema Abd: Soft, non distended, normal bowel sounds, non tender. Skin: No petechiae or rashes. Back: No midline or flank tenderness. Ext: No cyanosis, or edema. Neur: Awake and alert. No focal deficit Psych: Normal Mood and Affect. Results 24 hrs Current Medications Medications (Trade) Dose Ordered Sig/Tanvi Route PRN Reason Start Time Stop Time Status Last Admin Dose Admin Acetaminophen/ Hydrocodone Bitart ([place] (10)) 1 tab ONCE ONCE PO 06/06/17 23:00 06/06/17 23:01 DC 06/06/17 22:53 Ondansetron HCl (Zofran Odt) 4 mg ONCE STAT ODT 06/06/17 22:42 06/06/17 22:43 DC 06/06/17 22:53 Procedures/MDM EKG: Read by emergency physician Rate/Rhythm: Normal Sinus Rhythm 82 beats/min QRS, ST, T-waves: No ST elevation, no T inversion, LAE, RBBB Impression: Abnormal EKG MEDICAL MAKING DECISION: The patient is a 57-year-old female, presenting with acute chest wall pain after she has been working on her hair the whole day today. The chest pain is consistent with musculoskeletal pain. She was treated with [place] 10 mg p.o. and Zofran ODT for nausea with good response. The differential diagnoses considered include but are not limited to acute coronary syndrome, acute myocardial infarction, pericarditis, pulmonary embolism , aortic dissection, pneumonia, pleural effusion, pneumothorax, GERD, chest wall pain. Departure Diagnosis: Primary Impression: Chest wall pain Condition: Good Comments I discussed the findings with the patient. I advised the patient to follow-up with the primary physician in about 1-2 days, sooner if needed and return if any concern. Disclaimer: Inadvertent spelling and grammatical errors are likely due to EHR/ dictation software use and do not reflect on the overall quality of patient care. Also, please note that the electronic time recorded on this note does not necessarily reflect the actual time of the patient encounter. UZIEL STARKS MD Jun 06, 2017 22:22
[2017-06-06] MEDS ORDERED: ONDANSETRON (ODT) 4 MG TAB ODT STA (22:42)
[2017-06-06] MEDS ORDERED: HYDROCODONE/APAP (10/325) TAB PO ONE (23:00)
[2017-06-06 23:01] VITALS: BP 140/61; PULSE 81; RESP 20; TEMP 98.6
== END 2017-06-06 23:01 | disposition home or self-care (01) ==
LOC: E/R 22:05
DX: R07.89 Other chest pain (principal); E11.9 Type 2 diabetes mellitus without complications; I10 Essential (primary) hypertension; I25.10 Atherosclerotic heart disease of native coronary artery without angina pectoris; J45.909 Unspecified asthma, uncomplicated; Z79.84 Long term (current) use of oral hypoglycemic drugs; Z79.82 Long term (current) use of aspirin
CPT/HCPCS: Z7502; Z7610

== ENCOUNTER 2017-06-08 14:18 | Emergency (ER) | payer OTHER ==
[~2017-06-08] VITALS: Ht 157.5 cm; Wt 80.0 kg
[2017-06-08 14:26] VITALS: Ht 157.5 cm; Wt 80.0 kg
--- NOTE | 2017-06-08 14:40 | QN ---
Documentation Comment Patient is a 57-year-old female who presents with a chief complaint of headache. She was brought in by ambulance and was seen immediately upon arrival. Medical screening exam was initiated. She will be sent to triage for further vital signs and then will be seen by another provider. ANNAMARIE PALENCIA MD Jun 08, 2017 14:40
[2017-06-08 16:34] LABS: BASOPHILS % 0.3 % (0.0-2.0); EOSINOPHILS # 0.2 10^3/ul (0.0-0.5); EOSINOPHILS % 3.3 % (0.0-7.0); HEMATOCRIT 37.8 % (37.0-47.0); HEMOGLOBIN 11.8 g/dl (12.0-16.0); LYMPHOCYTES # 1.5 10^3/ul (0.8-2.9); LYMPHOCYTES % 24.1 % (15.0-51.0); MEAN CORPUSCULAR HEMOGLOBIN 26.5 pg (29.0-33.0); MEAN CORPUSCULAR HGB CONC 31.2 g/dl (32.0-37.0); MEAN CORPUSCULAR VOLUME 84.8 fl (82.0-101.0); MEAN PLATELET VOLUME 10.4 fl (7.4-10.4); MONOCYTE # 0.7 10^3/ul (0.3-0.9); MONOCYTES % 11.3 % (0.0-11.0); NEUTROPHIL # 3.9 10^3/ul (1.6-7.5); NEUTROPHILS % 60.8 % (39.0-77.0); PLATELET COUNT 271 10^3/UL (140-415); RED BLOOD COUNT 4.46 10^6/ul (4.20-5.40); RED CELL DISTRIBUTION WIDTH 15.2 % (11.5-14.5); WHITE BLOOD COUNT 6.4 10^3/ul (4.8-10.8)
--- NOTE | 2017-06-08 16:37 | RADRPT ---
PROCEDURE: XR Chest. CLINICAL INDICATION: Chest pain TECHNIQUE: Single frontal view of the chest was obtained COMPARISON: None FINDINGS: The heart is enlarged. The thoracic aorta is calcified. There is mild pulmonary vascular congestion. There are bibasilar atelectatic changes. There is no pleural effusion or pneumothorax. RPTAT: AA IMPRESSION: Mild cardiomegaly. Mild pulmonary vascular congestion. Bibasilar atelectatic changes. Calcified aorta consistent with atherosclerotic disease. .Eugenio Daigle MD, Date Time Electronically viewed and signed by .Eugenio Daigle MD, on 06/08/2017 16:37 .S/
[2017-06-08 16:57] LABS: ANION GAP 13 (8-16); BLOOD UREA NITROGEN 13 mg/dl (7-20); CALCIUM 9.5 mg/dl (8.4-10.2); CARBON DIOXIDE 28 mmol/L (21-31); CHLORIDE 107 mmol/L (97-110); CREATININE 1.07 mg/dl (0.44-1.00); GLUCOSE 95 mg/dl (70-220); POTASSIUM 4.6 mmol/L (3.5-5.1); SODIUM 143 mmol/L (135-144)
[2017-06-08 17:32] LABS: TROPONIN-I < 0.012 ng/ml (0.00-0.12)
--- NOTE | 2017-06-08 17:44 | ERD ---
ER Documentation Chief Complaint Chief Complaint Weakness HPI 57-year-old female with a chronic narcotic dependency presents the emergency department by ambulance complaining of generalized weakness. She states that her legs have been weak, but she has been able to ambulate. She reports no focal localizing weakness, faculty speaking. She reports no headache. Triage note indicates that she might of had a headache but she is denying that to me at this time. She reports no fevers chills. She is requesting Ativan at this time for anxiety. ROS All systems reviewed and are negative except as per history of present illness. Medications Home Meds Active Scripts Meloxicam* (Mobic*) 15 Mg Tablet, 15 MG PO DAILY, #15 TAB Prov:TOMHAILEY DO 06/01/17 Fluconazole* (Diflucan*) 150 Mg Tablet, 150 MG PO ONCE, #1 TAB Prov:UZIEL STARKS MD 05/31/17 Ibuprofen* (Motrin*) 600 Mg Tab, 600 MG PO Q6, #20 TAB Prov:UZIEL STARKS MD 05/31/17 Melatonin (Melatonin) 5 Mg Tab.ir.er, 5 MG PO QHS, #30 Prov:MIRA BAUGH PA-C 04/24/17 Ondansetron (Ondansetron Odt) 4 Mg Tab.rapdis, 4 MG PO Q8 Y for NAUSEA AND/OR VOMITING, #30 TAB Prov:CORONA CHAO NP 04/22/17 Cetirizine Hcl* (Zyrtec*) 10 Mg Capsule, 10 MG PO DAILY, #30 TAB.CHEW Prov:CORONA CHAO NP 04/22/17 Fluticasone Propionate (Flonase Allergy Relief) 9.9 Ml [place].susp, 1 SPRAY NASAL BID, #1 BOTTLE TO EACH NOSTRIL Prov:CORONA CHAO NP 04/22/17 Azithromycin* (Zithromax*) 500 Mg Tablet, 500 MG PO DAILY for 3 Days, TAB Prov:CORONA CHAO NP 04/22/17 Ibuprofen* (Motrin*) 600 Mg Tab, 600 MG PO Q6, #30 TAB Prov:HESHAM FERREIRA 03/30/17 Hydrocodone/Acetaminophen ([place] 5-325 Tablet) 1 Each Tablet, 1 TAB PO Q6H Y for SEVERE PAIN LEVEL 7-10, #20 TAB Prov:CORONA CHAO [employer] 02/20/17 Cyclobenzaprine Hcl* (Cyclobenzaprine Hcl*) 10 Mg Tablet, 10 MG PO TID, #15 TAB Prov:CORONA CHAO [employer] 02/20/17 Ibuprofen* (Motrin*) 600 Mg Tab, 600 MG PO Q6H Y for PAIN AND OR ELEVATED TEMP, #30 TAB Prov:CORONA CHAO [employer] 02/20/17 Sitagliptin* (Januvia*) 100 Mg Tab, 100 MG PO DAILY for 30 Days, TAB 2 Refills Prov:HERIBERTO CASTELLANOS Norma 10/15/15 Zolpidem Tartrate* (Zolpidem Tartrate*) 10 Mg Tablet, 10 MG PO QHS Y for INSOMNIA, #30 Prov:DAV CASTELLANOSNOVANT HEALTH FORSYTH MEDICAL CENTERJhonny . 10/15/15 Aspirin* (Aspirin*) 325 Mg Tablet, 81 MG PO DAILY for 30 Days Prov:HERIBERTO CASTELLANOS Norma 10/15/15 Reported Medications Atorvastatin Calcium (Atorvastatin Calcium) 10 Mg Tablet, 10 MG PO QHS, #30 TAB 03/07/17 Fluoxetine Hcl* (Fluoxetine Hcl*) 40 Mg Capsule, 40 MG PO DAILY, CAP 03/07/17 Metformin* (Glucophage*) 500 Mg Tab, 500 MG PO WITH BREAKFAST, #30 TAB 03/07/17 Hydrocodone/Acetaminophen ([place] 10-325 Tablet) 1 Each Tablet, 1 EACH PO, TAB 03/07/17 Hydrocodone Bit-Acetaminophen (Hydrocodone Bit-APAP) 5-325MG Tablet, 1 TAB PO Q6H Y for PAIN, TAB 03/07/17 Hydromorphone Hcl* (Dilaudid*) 4 Mg Tablet, 4 MG PO BID Y for PAIN, TAB 12/22/15 Glyburide* (Glyburide*) 5 Mg Tablet, 5 MG PO BID, #60 TAB 12/21/15 Ondansetron Hcl* (Ondansetron Hcl*) 8 Mg Tablet, 8 MG PO Q6H Y for NAUSEA AND OR VOMITING, TAB 10/30/15 Hydromorphone Hcl* (Hydromorphone Hcl*) 4 Mg Tablet, 4 MG PO Q4H Y for PAIN, TAB 10/30/15 Paroxetine Hcl* (Paroxetine*) 20 Mg Tablet, 20 MG PO DAILY, TAB 10/30/15 Albuterol Sulfate* (Ventolin HFA*) 18 Gm Hfa.aer.ad, 2 PUFF INHALATION Q4H, #1 INHALER 10/30/15 Carvedilol* (Carvedilol*) 12.5 Mg Tablet, 12.5 MG PO BID, #30 07/10/15 Isosorbide Mononitrate* (Isosorbide Mononitrate*) 60 Mg Tab.er.24h, 60 MG PO DAILY, #30 07/10/15 Nifedipine* (Adalat CC*) 60 Mg Tablet.sa, 60 MG PO DAILY, TAB.SA 10/06/14 Lisinopril* (Lisinopril*) 20 Mg Tablet, 20 MG PO DAILY, TAB 10/06/14 Donepezil* (Aricept*) 10 Mg Tablet, 10 MG PO DAILY, TAB 10/06/14 Pantoprazole* (Protonix*) 40 Mg Tablet.dr, 40 MG PO DAILY 03/04/13 Allergies Allergies: Coded Allergies: Penicillins (Unverified Allergy, Unknown, 03/30/17) PMhx/Soc History of Surgery: Yes (hysterectomy, left knee, BILATERAL BREAST, BILATERAL WRIST ) Anesthesia Reaction: No Hx Neurological Disorder: No Hx Respiratory Disorders: Yes (asthma) Hx Cardiac Disorders: Yes (HTN, A-fib) Hx Psychiatric Problems: Yes (Depression) Hx Miscellaneous Medical Probl: Yes (DM) Hx Alcohol Use: No Hx Substance Use: Yes (medical marijuana daily) Hx Tobacco Use: No Smoking Status: Former smoker FmHx non Contributory for chief complaint Physical Exam Vitals Vital Signs Date Time Temp Pulse Resp B/P Pulse Ox O2 Delivery O2 Flow Rate FiO2 06/08/17 14:26 97.1 135 20 132/75 Physical Exam GENERAL: The patient is well developed and appropriate for usual state of health in no apparent distress HEENT: Pupils equal, round, and reactive to light. EOMI. There is no scleral icterus. NECK: C-spine is soft and supple, there is no meningismus. There is no cervical lymphadenopathy. LUNGS: Clear to auscultation bilaterally. There are no rales, wheezes or rhonchi. HEART: Regular rate and rhythm, no murmurs, clicks, rubs or gallops. ABDOMEN: Soft, non-tender, non-distended. There are bowel sounds in all four quadrants. No rebound or guarding. EXTREMITIES: There is no peripheral cyanosis or edema. No focal swelling or erythema. NEURO: The patient moves all four extremities with 5/5 strength. Cranial nerves II - XII are intact. Normal gait. Alert and oriented SKIN: There is no apparent rash or petechiae. HEME/LYMPHATIC: There is no evidence of excessive bruising or lymphedema. PSYCHIATRIC: The patient does not appear anxious or depressed. Result Diagram: 06/08/17 1625 06/08/17 1625 Results 24 hrs Laboratory Tests Test 06/08/17 16:25 White Blood Count 6.410^3/ul Red Blood Count 4.4610^6/ul Hemoglobin 11.8g/dl Hematocrit 37.8% Mean Corpuscular Volume 84.8fl Mean Corpuscular Hemoglobin 26.5pg Mean Corpuscular Hemoglobin Concent 31.2g/dl Red Cell Distribution Width 15.2% Platelet Count 50543^3/UL Mean Platelet Volume 10.4fl Neutrophils % 60.8% Lymphocytes % 24.1% Monocytes % 11.3% Eosinophils % 3.3% Basophils % 0.3% Nucleated Red Blood Cells % 0.0/100WBC Neutrophils # 3.910^3/ul Lymphocytes # 1.510^3/ul Monocytes # 0.710^3/ul Eosinophils # 0.210^3/ul Basophils # 0.010^3/ul Nucleated Red Blood Cells # 0.010^3/ul Sodium Level 143mmol/L Potassium Level 4.6mmol/L Chloride Level 107mmol/L Carbon Dioxide Level 28mmol/L Anion Gap 13 Blood Urea Nitrogen 13mg/dl Creatinine 1.07mg/dl Glucose Level 95mg/dl Calcium Level 9.5mg/dl Troponin I < 0.012ng/ml Procedures/MDM Patient was taken to a room, seen and evaluated. Comfort measures were initiated. Diagnostic tests were ordered and reviewed. 3 LEAD RHYTHM STRIP: Normal sinus rhythm without ectopy EK lead EKG reviewed by myself: Normal Sinus Rhythm Normal [place] and intervals No ST elevation, depression, or T wave inversion Impression: Normal EKG RADIOLOGY: reviewed with the radiologist MEDICAL DECISION MAKIN-year-old female with a chronic anxiety history as well as a chronic narcotic dependency presents the emergency department generalized weakness. Differential diagnosis entertained was broad and potential high acuity. Diagnostic workup and clinical picture do not demonstrate evidence of high-risk concerns including no evidence of infection, electrolyte, ischemic issues. Overall, patient's presentation is more likely consistent with anxiety and I suspect a chronic narcotic history based on her CURES and YULI documentation. At this time, she shows no evidence of other emergent medical condition and now seems appropriate for outpatient care. Departure Diagnosis: Primary Impression: Acute weakness Condition: Stable Patient Instructions: Weakness, Unk Cause ARVIN LI Jun 08, 2017 17:44
[2017-06-08 18:15] VITALS: BP 157/88; PULSE 79; RESP 18; TEMP 98.5
== END 2017-06-08 18:17 | disposition home or self-care (01) ==
LOC: E/R 14:18
DX: R53.1 Weakness (principal); E11.9 Type 2 diabetes mellitus without complications; I10 Essential (primary) hypertension; J45.909 Unspecified asthma, uncomplicated; Z79.82 Long term (current) use of aspirin; Z79.84 Long term (current) use of oral hypoglycemic drugs; Z87.891 Personal history of nicotine dependence
CPT/HCPCS: 36415; 71010; 80048; 84484; 85025; 93005; Z7502

== ENCOUNTER 2017-06-13 21:34 | Inpatient (IN) | payer OTHER ==
[~2017-06-13] VITALS: Ht 180.3 cm; Wt 168.0 kg
[2017-06-13] MEDS ORDERED: ASPIRIN 81 MG TAB PO STA (23:02)
--- NOTE | 2017-06-13 23:08 | ERD ---
ER Documentation Chief Complaint Chief Complaint left leg pain extending to left groin x2 weeks HPI Patient is a 57-year-old female who presents with sudden onset, intermittent, moderate, pressure-like left precordial chest pain since this morning. She states that the pain is come and gone, lasting up to 1 hour. She feels some shortness of breath. The pain is worse with exertion. She denies cough. She is equivocal on the presence of pleuritic symptoms. She has a history of PE and has an IVC filter. She is not on blood thinners. She denies cardiac catheterization within the last 30 years. She cannot state when she last had a stress test. She also reports having 1 month of pain in her left groin with an enlarged lymph node that is been followed at [facility]. She reports increased edema to bilateral legs over the last week. History is somewhat limited due to patient being a poor historian giving vague answers to many questions. ROS All systems reviewed and are negative except as per history of present illness. Medications Home Meds Active Scripts Meloxicam* (Mobic*) 15 Mg Tablet, 15 MG PO DAILY, #15 TAB Prov:TOMHAILEYJENNIFER GIBSON 06/01/17 Melatonin (Melatonin) 5 Mg Tab.ir.er, 5 MG PO QHS, #30 Prov:MIRA BAUGH PA-C 04/24/17 Ondansetron (Ondansetron Odt) 4 Mg Tab.rapdis, 4 MG PO Q8 Y for NAUSEA AND/OR VOMITING, #30 TAB Prov:CORONA CHAO NP 04/22/17 Cetirizine Hcl* (Zyrtec*) 10 Mg Capsule, 10 MG PO DAILY, #30 TAB.CHEW Prov:CORONA CHAO NP 04/22/17 Fluticasone Propionate (Flonase Allergy Relief) 9.9 Ml [place].susp, 1 SPRAY NASAL BID, #1 BOTTLE TO EACH NOSTRIL Prov:CORONA CHAO NP 04/22/17 Azithromycin* (Zithromax*) 500 Mg Tablet, 500 MG PO DAILY for 3 Days, TAB Prov:CORONA CHAO NP 04/22/17 Ibuprofen* (Motrin*) 600 Mg Tab, 600 MG PO Q6, #30 TAB Prov:HESHAM FERREIRA 03/30/17 Cyclobenzaprine Hcl* (Cyclobenzaprine Hcl*) 10 Mg Tablet, 10 MG PO TID, #15 TAB Prov:CORONA CHAO NP 02/20/17 Ibuprofen* (Motrin*) 600 Mg Tab, 600 MG PO Q6H Y for PAIN AND OR ELEVATED TEMP, #30 TAB Prov:CORONA CHAO ACCOUNTING COORDINATOR 02/20/17 Sitagliptin* (Januvia*) 100 Mg Tab, 100 MG PO DAILY for 30 Days, TAB 2 Refills Prov:MEDHAT CASTELLANOSJhonny Mcdonald. 10/15/15 Aspirin* (Aspirin*) 325 Mg Tablet, 81 MG PO DAILY for 30 Days Prov:DAV CASTELLANOSQUENTIN Mcdonald. 10/15/15 Reported Medications Cyclobenzaprine Hcl* (Cyclobenzaprine Hcl*) 10 Mg Tablet, 10 MG PO Q8 Y for MUSCLE SPASMS, #60 TAB 06/14/17 Atorvastatin Calcium* (Atorvastatin Calcium*) 20 Mg Tablet, 20 MG PO QHS, #30 TAB 06/14/17 Aspirin* (Aspirin* Chew) 81 Mg Tab.chew, 81 MG PO DAILY, TAB.CHEW 06/14/17 Atorvastatin Calcium (Atorvastatin Calcium) 10 Mg Tablet, 10 MG PO QHS, #30 TAB 03/07/17 Fluoxetine Hcl* (Fluoxetine Hcl*) 40 Mg Capsule, 40 MG PO DAILY, CAP 03/07/17 Metformin* (Glucophage*) 500 Mg Tab, 500 MG PO WITH BREAKFAST, #30 TAB 03/07/17 Hydrocodone Bit-Acetaminophen (Hydrocodone Bit-APAP) 5-325MG Tablet, 1 TAB PO Q6H Y for PAIN, TAB 03/07/17 Glyburide* (Glyburide*) 5 Mg Tablet, 5 MG PO BID, #60 TAB 12/21/15 Ondansetron Hcl* (Ondansetron Hcl*) 8 Mg Tablet, 8 MG PO Q6H Y for NAUSEA AND OR VOMITING, TAB 10/30/15 Hydromorphone Hcl* (Hydromorphone Hcl*) 4 Mg Tablet, 4 MG PO Q4H Y for PAIN, TAB 10/30/15 Paroxetine Hcl* (Paroxetine*) 20 Mg Tablet, 20 MG PO DAILY, TAB 10/30/15 Albuterol Sulfate* (Ventolin HFA*) 18 Gm Hfa.aer.ad, 2 PUFF INHALATION Q4H, #1 INHALER 10/30/15 Carvedilol* (Carvedilol*) 12.5 Mg Tablet, 12.5 MG PO BID, #30 07/10/15 Isosorbide Mononitrate* (Isosorbide Mononitrate*) 60 Mg Tab.er.24h, 60 MG PO DAILY, #30 07/10/15 Nifedipine* (Adalat CC*) 60 Mg Tablet.sa, 60 MG PO DAILY, TAB.SA 10/06/14 Lisinopril* (Lisinopril*) 20 Mg Tablet, 20 MG PO DAILY, TAB 10/06/14 Donepezil* (Aricept*) 10 Mg Tablet, 10 MG PO DAILY, TAB 10/06/14 Pantoprazole* (Protonix*) 40 Mg Tablet.dr, 40 MG PO DAILY 03/04/13 Discontinued Reported Medications Hydrocodone/Acetaminophen ([place] 10-325 Tablet) 1 Each Tablet, 1 EACH PO, TAB 03/07/17 Hydromorphone Hcl* (Dilaudid*) 4 Mg Tablet, 4 MG PO BID Y for PAIN, TAB 12/22/15 Discontinued Scripts Fluconazole* (Diflucan*) 150 Mg Tablet, 150 MG PO ONCE, #1 TAB Prov:UZIEL STARKS MD 05/31/17 Ibuprofen* (Motrin*) 600 Mg Tab, 600 MG PO Q6, #20 TAB Prov:UZIEL STARKS MD 05/31/17 Hydrocodone/Acetaminophen ([place] 5-325 Tablet) 1 Each Tablet, 1 TAB PO Q6H Y for SEVERE PAIN LEVEL 7-10, #20 TAB Prov:CORONA CHAO NP 02/20/17 Zolpidem Tartrate* (Zolpidem Tartrate*) 10 Mg Tablet, 10 MG PO QHS Y for INSOMNIA, #30 Prov:HERIBERTO CASTELLANOS 10/15/15 Allergies Allergies: Coded Allergies: Penicillins (Unverified Allergy, Unknown, 06/14/17) PMhx/Soc Past medical history: Diabetes mellitus, CHF, hypertension, chronic pain Past surgical history: Hysterectomy, left knee replacement, IVC filter Social history: Denies tobacco or alcohol History of Surgery: Yes (hysterectomy, left knee, BILATERAL BREAST, BILATERAL WRIST ) Anesthesia Reaction: No Hx Neurological Disorder: No Hx Respiratory Disorders: Yes (asthma) Hx Cardiac Disorders: Yes (HTN, A-fib) Hx Psychiatric Problems: Yes (Depression) Hx Miscellaneous Medical Probl: Yes (DM) Hx Alcohol Use: No Hx Substance Use: Yes (medical marijuana daily) Hx Tobacco Use: No FmHx Noncontributory Physical Exam Vitals Vital Signs Date Time Temp Pulse Resp B/P Pulse Ox O2 Delivery O2 Flow Rate FiO2 06/14/17 05:48 89 13 104/61 99 Room Air 06/14/17 02:26 88 16 152/85 98 Room Air 06/13/17 21:38 98.4 97 20 171/93 98 Physical Exam Const: Alert, no acute distress Head: Atraumatic Eyes: Normal Conjunctiva, No pallor, no icterus ENT: Normal External Ears, Nose and Mouth. Mucous membranes moist Neck: Full range of motion. No JVD. Resp: Clear to auscultation bilaterally, No wheezes, no rales Cardio: Irregularly irregular rhythm, no gallop, no murmurs Abd: Soft, non tender, non distended. Obese Skin: No petechiae or rashes Back: No midline or flank tenderness Ext: No cyanosis, 2+ pitting edema bilateral shins, 1.5 cm left inguinal lymph node without overlying erythema, No fluctuance Neur: Awake and alert, Cranial nerves II through XII intact bilaterally, strength and sensation full in 4 extremity's. Psych: Normal Mood and Affect Result Diagram: 06/13/17 2330 06/13/17 2330 Results 24 hrs Laboratory Tests Test 06/13/17 23:30 White Blood Count 6.210^3/ul Red Blood Count 4.2210^6/ul Hemoglobin 11.2g/dl Hematocrit 35.3% Mean Corpuscular Volume 83.6fl Mean Corpuscular Hemoglobin 26.5pg Mean Corpuscular Hemoglobin Concent 31.7g/dl Red Cell Distribution Width 15.0% Platelet Count 13839^3/UL Mean Platelet Volume 11.5fl Neutrophils % 58.6% Lymphocytes % 26.0% Monocytes % 11.0% Eosinophils % 3.7% Basophils % 0.5% Nucleated Red Blood Cells % 0.0/100WBC Neutrophils # 3.610^3/ul Lymphocytes # 1.610^3/ul Monocytes # 0.710^3/ul Eosinophils # 0.210^3/ul Basophils # 0.010^3/ul Nucleated Red Blood Cells # 0.010^3/ul Prothrombin Time 12.9Sec Prothrombin Time Ratio 1.0 INR International Normalized Ratio 0.97 D-Dimer 1476.90ng/ml D-Dimer Comment Sodium Level 142mmol/L Potassium Level 4.2mmol/L Chloride Level 103mmol/L Carbon Dioxide Level 28mmol/L Anion Gap 15 Blood Urea Nitrogen 13mg/dl Creatinine 0.91mg/dl Glucose Level 150mg/dl Calcium Level 10.0mg/dl Troponin I < 0.012ng/ml B-Type Natriuretic Peptide 26PG/ML Current Medications Medications (Trade) Dose Ordered Sig/Tanvi Route PRN Reason Start Time Stop Time Status Last Admin Dose Admin Aspirin (Aspirin) 162 mg ONCE STAT PO 06/13/17 23:02 06/13/17 23:03 DC 06/13/17 23:26 Hydromorphone HCl (Dilaudid) 4 mg ONCE ONCE PO 06/14/17 00:00 06/14/17 00:01 DC 06/14/17 00:52 IV Flush 10 ml 10 ml STK-MED ONCE .ROUTE 06/14/17 02:44 06/14/17 02:45 DC 06/14/17 03:07 Sodium Chloride 100 ml @ ud STK-MED ONCE .ROUTE 06/14/17 02:44 06/14/17 02:45 DC 06/14/17 03:07 Iohexol (Omnipaque) 100 ml @ ud STK-MED ONCE .ROUTE 06/14/17 02:44 06/14/17 02:45 DC 06/14/17 03:07 Enoxaparin Sodium (Lovenox) 100 mg ONCE ONCE SC 06/14/17 03:30 06/14/17 03:31 DC 06/14/17 03:49 Ondansetron HCl (Zofran Inj) 4 mg ER BRIDGE PRN IV NAUSEA AND/OR VOMITING 06/14/17 05:30 06/15/17 05:29 Acetaminophen (Tylenol Tab) 650 mg ER BRIDGE PRN PO MILD PAIN/FEVER 06/14/17 05:30 06/15/17 05:29 IV Flush (NS 3 ml) 3 ml PER PROTOCOL IV 06/14/17 05:30 Ondansetron HCl (Zofran Tab) 8 mg Q6H PRN PO NAUSEA AND/OR VOMITING 06/14/17 05:30 Acetaminophen (Tylenol Tab) 650 mg Q6H PRN PO PAIN LEVEL 1-3 OR FEVER 06/14/17 05:30 Docusate Sodium (Colace) 100 mg Q12H PRN PO CONSTIPATION 06/14/17 05:30 Famotidine (Pepcid) 20 mg Q12 PO 06/14/17 09:00 Enoxaparin Sodium (Lovenox) 168 mg Q12 SC 06/14/17 13:00 Albuterol (Ventolin Hfa) 2 puff Q4H RESP THERAPY INH 06/14/17 05:30 Aspirin (Aspirin) 81 mg DAILY PO 06/14/17 09:00 Atorvastatin Calcium (Lipitor) 20 mg QHS PO 06/14/17 21:00 UNV Carvedilol (Coreg) 12.5 mg BID PO 06/14/17 09:00 UNV Cyclobenzaprine HCl (Flexeril) 10 mg Q8 PRN PO MUSCLE SPASMS 06/14/17 05:30 Donepezil HCl (Aricept) 10 mg DAILY PO 06/14/17 09:00 UNV Fluticasone Propionate (Flonase 0.05% Nasal) 1 spray BID NASAL 06/14/17 09:00 UNV Glyburide (Micronase) 5 mg BID PO 06/14/17 09:00 UNV Hydromorphone HCl (Dilaudid) 4 mg Q4H PRN PO PAIN 06/14/17 05:30 UNV Isosorbide Mononitrate (Imdur) 60 mg DAILY PO 06/14/17 09:00 UNV Lisinopril (Zestril) 20 mg DAILY PO 06/14/17 09:00 UNV Metformin HCl (Glucophage) 500 mg WITH BREAKFAST PO 06/14/17 08:00 UNV Nifedipine (Procardia Xl) 60 mg DAILY PO 06/14/17 09:00 UNV Ondansetron HCl (Zofran Tab) 8 mg Q6H PRN PO NAUSEA AND/OR VOMITING 06/14/17 05:30 UNV Pantoprazole (Protonix Tab) 40 mg DAILY@06 PO 06/14/17 06:00 Miscellaneous Information 10 mg DAILY PO 06/14/17 09:00 UNV Miscellaneous Information 5 mg QHS PO 06/14/17 21:00 UNV Miscellaneous Information 100 mg DAILY PO 06/14/17 09:00 UNV Procedures/MDM EKG read by me: Time 2324, rate 90 Rhythm: Normal sinus Martin: Normal Intervals: Right bundle branch block ST-T waves: no ischemic changes Ectopy: Occasional PACs Q-waves: No Impression: No evidence of ischemia or arrhythmia MDM: Patient is a 57-year-old female who presents with intermittent chest pain for the last day. The patient has history of DVT and has an IVC filter. A d- dimer was sent due to being low risk for pulmonary embolism and low clinical suspicion. D-dimer is elevated, so a CT pulmonary angiogram was performed and shows multiple small subsegmental PEs. EKG was nonischemic and troponin was negative. Patient has had chronic chest pain for which she has been to the emergency department numerous times. She was given her home regimen of narcotic medications for pain control. Case was discussed with Dr. Woods. Attempt was made to transfer the patient, but the patient refused transfer and her admission was approved by counseling case manager. Departure Diagnosis: Primary Impression: Pulmonary embolism Pulmonary embolism type: other Chronicity: acute Acute cor pulmonale presence: without acute cor pulmonale Qualified Code: I26.99 - Other acute pulmonary embolism without acute cor pulmonale Condition: Stable SAVAGE RUFF MD Jun 13, 2017 23:08
[2017-06-13 23:57] LABS: BASOPHILS % 0.5 % (0.0-2.0); EOSINOPHILS # 0.2 10^3/ul (0.0-0.5); EOSINOPHILS % 3.7 % (0.0-7.0); HEMATOCRIT 35.3 % (37.0-47.0); HEMOGLOBIN 11.2 g/dl (12.0-16.0); LYMPHOCYTES # 1.6 10^3/ul (0.8-2.9); MEAN CORPUSCULAR HEMOGLOBIN 26.5 pg (29.0-33.0); MEAN CORPUSCULAR HGB CONC 31.7 g/dl (32.0-37.0); MEAN CORPUSCULAR VOLUME 83.6 fl (82.0-101.0); MEAN PLATELET VOLUME 11.5 fl (7.4-10.4); MONOCYTE # 0.7 10^3/ul (0.3-0.9); NEUTROPHIL # 3.6 10^3/ul (1.6-7.5); NEUTROPHILS % 58.6 % (39.0-77.0); PLATELET COUNT 252 10^3/UL (140-415); RED BLOOD COUNT 4.22 10^6/ul (4.20-5.40); WHITE BLOOD COUNT 6.2 10^3/ul (4.8-10.8)
[2017-06-14] MEDS ORDERED: HYDROmorphONE 4 MG TAB PO ONE
--- NOTE | 2017-06-14 00:10 | RADRPT ---
PROCEDURE: XR Chest. CLINICAL INDICATION: Chest pain TECHNIQUE: Single frontal view of the chest. COMPARISON: 12/21/2015 FINDINGS: Cardiomegaly and pulmonary vascular congestion, increased over the interval. Patchy bilateral air sp nunu disease No signs of pleural fluid or pneumothorax are seen. The osseous structures and soft tiss ues are unremarkable. IMPRESSION: Moderate failure. Physician Prakash Date Time Electronically viewed and signed by Physician Prakash on 06/14/2017 00:10 RS/
[2017-06-14 00:18] LABS: INR 0.97; PROTIME 12.9 Sec (12.2-14.2)
[2017-06-14 00:21] LABS: D-DIMER 1476.9 ng/ml (<460)
[2017-06-14 00:32] LABS: B-TYPE NATRIURETIC PEPTIDE 26 PG/ML (0-125)
[2017-06-14 00:47] LABS: ANION GAP 15 (8-16); BLOOD UREA NITROGEN 13 mg/dl (7-20); CARBON DIOXIDE 28 mmol/L (21-31); CHLORIDE 103 mmol/L (97-110); CREATININE 0.91 mg/dl (0.44-1.00); GLUCOSE 150 mg/dl (70-220); POTASSIUM 4.2 mmol/L (3.5-5.1); SODIUM 142 mmol/L (135-144)
[2017-06-14 00:48] LABS: TROPONIN-I < 0.012 ng/ml (0.00-0.12)
[2017-06-14] MEDS ORDERED: IOHEXOL 100 ML ONE (02:44)
[2017-06-14] MEDS ORDERED: SOD CHLORIDE 0.9% 100 ML ONE (02:44)
--- NOTE | 2017-06-14 03:26 | RADRPT ---
PROCEDURE: CTA Chest and pulmonary angiogram. CLINICAL INDICATION: Chest pain TECHNIQUE: CT scan of the chest and CT pulmonary angiogram was performed on a multidetector high-r esolution CT scanner. High-resolution thin slice coronal and sagittal imaging was obtained from the axial source images. No 3-D/maximum intensity projection reformatted imaging was performed. The pa tient was examined following the intravenous administration of 90 cc of Omnipaque-350. The images we re reviewed on a PACS workstation. The total exam CTDI equals 79.77 +24.44 mGy, and the total exam D LP equals 1051.48 mGy-cm. One or more the following dose reduction techniques were utilized: Automated exposure control, adjus tment of the mA and / or kV according to patient's size, or use of iterative reconstruction techniqu e. DICOM images are available. COMPARISON: Chest x-ray of 06/13/2017 FINDINGS: There is suboptimal opacification of the pulmonary arteries due to bolus timing and dense contrast i n the superior vena cava. There is appearance of filling defects consistent with pulmonary emboli in right lower lobe subsegmental and left lower lobe segmental and subsegmental pulmonary arteries. Mi ld atherosclerotic changes including small amount calcification in thoracic aorta. No thoracic aorti c aneurysm or dissection is seen. No enlarged mediastinal lymph nodes are seen. No pleural effusio n is seen. Nonspecific mild "ground-glass" increased density in the lungs could be secondary to hyp oventilatory changes or possibly pulmonary edema. Mild dependent atelectasis in posterior lungs. Deg enerative changes in thoracic spine and shoulders. Inferior vena cava filter. IMPRESSION: Limited examination as noted above. Consistent with pulmonary emboli in right lower lobe subsegmenta l and left lower lobe segmental and subsegmental pulmonary arteries. Inferior vena cava filter. Nons pecific mild "ground-glass" increased density in the lungs could be secondary to hypoventilatory oneyda nges or possibly pulmonary edema. Please see above. Critical result discussed with Dr. Rajan at 03:2 4 a.m. on 06/14/2017. RPTAT: HJES .Lucio Moran MD, MD Date Time Electronically viewed and signed by .Lucio Moran MD, MD on 06/14/2017 03:25 .S/
[2017-06-14] MEDS ORDERED: ENOXAPARIN 100 MG/ML SYG SC ONE (03:30)
[2017-06-14] MEDS ORDERED: ATOR20TA38 PO (04:18)
[2017-06-14] MEDS ORDERED: CYCL-319 PO (04:18)
[2017-06-14] MEDS ORDERED: ASPI81TA3 PO (04:18)
[2017-06-14] MEDS ORDERED: NACL 0.9% 3 ML SYG IV SCH (05:30)
[2017-06-14] MEDS ORDERED: ONDANSETRON 4 MG TAB PO PRN ×2 (05:30)
[2017-06-14] MEDS ORDERED: ONDANSETRON 4 MG INJ IV PRN (05:30)
[2017-06-14] MEDS ORDERED: DOCUSATE SODIUM 100 MG CAP PO PRN (05:30)
[2017-06-14] MEDS ORDERED: ALBUTEROL HFA 8 GM INHALER INH SCH (05:30)
[2017-06-14] MEDS ORDERED: ACETAMINOPHEN 325 MG TAB PO PRN ×2 (05:30)
[2017-06-14] MEDS: PANTOPRAZOLE (EC) 40 MG TAB PO SCH (06:00)
[2017-06-14] MEDS ORDERED: NON-FORMULARY/PATIENT OWN MED (Cetirizine Hcl* (Zyrtec*) 10 MG) PO SCH (09:00)
[2017-06-14] MEDS: LINAGLIPTIN 5 MG TABLET PO SCH (09:00)
[2017-06-14] MEDS: ASPIRIN 81 MG TAB PO SCH (09:00)
[2017-06-14] MEDS ORDERED: NON-FORMULARY/PATIENT OWN MED (Sitagliptin* (Januvia*) 100 MG) PO SCH (09:00)
[2017-06-14] MEDS: FAMOTIDINE 20 MG TAB PO SCH ×2 (09:00→22:01)
[2017-06-14] MEDS: DONEPEZIL 10 MG TAB PO SCH (09:00)
[2017-06-14] MEDS: FLUTICASONE 0.05% 16 GM NAS SPRAY NASAL SCH ×2 (10:03→21:00)
[2017-06-14] MEDS: metFORMIN 500 MG TAB PO SCH (10:03)
[2017-06-14] MEDS: glyBURIDE 5 MG TAB PO SCH (10:04)
[2017-06-14] MEDS: ISOSORBIDE MONONITRATE(SR)60 MG TAB PO SCH (10:04)
[2017-06-14] MEDS: NIFEdipine (XL) 60 MG TAB PO SCH (10:05)
[2017-06-14] MEDS: LISINOPRIL 20 MG TAB PO SCH (10:05)
[2017-06-14] MEDS: ENOXAPARIN 100 MG/ML SYG SC SCH ×2 (13:00→22:05)
[2017-06-14] MEDS: HYDROmorphONE 4 MG TAB PO PRN ×2 (13:05→18:02)
--- NOTE | 2017-06-14 13:13 | CONS ---
DATE OF ADMISSION: 06/13/2017 DATE OF CONSULTATION: 06/14/2017 REASON FOR CONSULTATION: Pulmonary embolus. HISTORY OF PRESENT ILLNESS: This is a 57-year-old lady with multiple medical problems including DVT x2, questionable hypercoagulable condition with IVC filter in place, comes in with left leg pain, a nd some mild chest discomfort, but no hemoptysis or hematemesis. No nausea, no vomiting. PAST MEDICAL HISTORY: Diabetes mellitus, CHF, hypertension, hyperlipidemia, history of venous throm boembolic disease with an IVC filter, history of left knee replacement. MEDICATIONS: Per chart. ALLERGIES: NONE. SOCIAL HISTORY: She is a nonsmoker, no alcohol, no history of drug use. FAMILY HISTORY: Noncontributory. SYSTEMS REVIEW: A 12-point review of systems was negative other than that mentioned above. PHYSICAL EXAMINATION: GENERAL: Morbidly obese lady, awake, alert, oriented, comfortable at rest, talking in full and comp lete sentences. VITAL SIGNS: Currently afebrile. Temperature 98, pulse 79, blood pressure 108/59, O2 saturation 96 % on room air. NECK: Supple. No JVD or lymphadenopathy. CARDIAC: S1, S2, no added sounds or murmurs. CHEST: Diminished air entry both lung bases. ABDOMEN: Obese, soft, nontender, no guarding, no rebound. EXTREMITIES: No cyanosis, clubbing, 2+ edema. NEUROLOGIC: Generalized weakness. LABORATORY DATA: White count 6.2, hemoglobin 11.2, platelets of 252. Chemistry within normal limit s. BNP 26. DIAGNOSTIC DATA: CT angiogram demonstrates right lower lobe subsegmental pulmonary embolus. IMPRESSION AND PLAN: 1. Pulmonary embolus. 2. No hypoxemia cardiovascular compromise. 3. Chronic thromboembolic disease. 4. Morbid obesity. 5. Venous stasis. The patient will require anticoagulation would consider switching to factor 10 agent such as Xarelto or Eliquis for 3 months. Discharge and follow up with primary care physician. Dictated By: MARCY CASTELLANOS/NEIL Conf#: [id number] DID#: [id number]
[2017-06-14] MEDS ORDERED: RIVA15TA PO (14:17)
[2017-06-14] MEDS ORDERED: RIVA20TA PO (14:17)
--- NOTE | 2017-06-14 14:17 | PDOCDIS ---
Discharge Instructions CONDITION Patient Condition: Good HOME CARE INSTRUCTIONS: Diet Instructions: Reduced Calorie ACTIVITY: Activity Restrictions: No Restrictions FOLLOW UP/APPOINTMENTS Follow-up Plan Follow-up with your PCP in 1-2 weeks, discuss new diagnosis of pulmonary embolism and further refills of TREVON Lopez Jun 14, 2017 14:17
--- NOTE | 2017-06-14 14:22 | DS ---
Date/Time of Note Date/Time of Note DATE: 06/14/17 TIME: 14:18 Discharge Summary Admission/Discharge Info Admit Date/Time June 13, 2017 Discharge Date/Time June 14, 2017 Discharge Diagnosis 1. Shortness of breath secondary to bilateral pulmonary embolism Patient has a history of blood clots and PEs in the past, status post IVC filter placement in the past 2. Morbid obesity Weight loss 3. Diabetes Continue home meds 4. Hypertension Continue home meds 5. Depression Continue home Prozac Patient Condition: Good Hospital Course Patient a 29-year-old female with history of morbid obesity, diabetes, hypertension, depression as well as multiple blood clots and pulmonary embolism status post IVC filter placed in the past. Patient presents with shortness of breath was found to have bilateral pulmonary embolisms on CTA of the chest. Patient does not have any significant shortness of breath on day of discharge and did not require any supplemental O2 and was not tachypneic. Patient was seen by pulmonology and was felt the patient was stable for DC with Xarelto. Patient is to follow-up with her PCP in several weeks. On the day of discharge patient's vitals, labs and physical exam are stable she had no acute complaints questions answered Home Meds Active Scripts Rivaroxaban* (Xarelto*) 20 Mg Tablet, 20 MG PO WITH DINNER for 30 Days, #30 TAB Then start this and F/U with your PCP for further treatment Prov:TREVON CARDOZO 06/14/17 Rivaroxaban* (Xarelto*) 15 Mg Tablet, 15 MG PO BID for 21 Days, #42 TAB Take this first Prov:SARAH CARDOZOViky 06/14/17 Meloxicam* (Mobic*) 15 Mg Tablet, 15 MG PO DAILY, #15 TAB Prov:HAILEY SANTOS DO 06/01/17 Melatonin (Melatonin) 5 Mg Tab.ir.er, 5 MG PO QHS, #30 Prov:MIRA BAUGH PA-C 04/24/17 Ondansetron (Ondansetron Odt) 4 Mg Tab.rapdis, 4 MG PO Q8 Y for NAUSEA AND/OR VOMITING, #30 TAB Prov:CORONA CHAO NP 04/22/17 Cetirizine Hcl* (Zyrtec*) 10 Mg Capsule, 10 MG PO DAILY, #30 TAB.CHEW Prov:CORONA CHAO NP 04/22/17 Fluticasone Propionate (Flonase Allergy Relief) 9.9 Ml [place].susp, 1 SPRAY NASAL BID, #1 BOTTLE TO EACH NOSTRIL Prov:CORONA CHAO NP 04/22/17 Azithromycin* (Zithromax*) 500 Mg Tablet, 500 MG PO DAILY for 3 Days, TAB Prov:CORONA CHAO NP 04/22/17 Ibuprofen* (Motrin*) 600 Mg Tab, 600 MG PO Q6, #30 TAB Prov:HESHAM FERREIRA 03/30/17 Cyclobenzaprine Hcl* (Cyclobenzaprine Hcl*) 10 Mg Tablet, 10 MG PO TID, #15 TAB Prov:CORONA CHAO NP 02/20/17 Ibuprofen* (Motrin*) 600 Mg Tab, 600 MG PO Q6H Y for PAIN AND OR ELEVATED TEMP, #30 TAB Prov:CORONA CHAO NP 02/20/17 Sitagliptin* (Januvia*) 100 Mg Tab, 100 MG PO DAILY for 30 Days, TAB 2 Refills Prov:HERIBERTO CASTELLANOS 10/15/15 Aspirin* (Aspirin*) 325 Mg Tablet, 81 MG PO DAILY for 30 Days Prov:HERIBERTO CASTELLANOS 10/15/15 Reported Medications Cyclobenzaprine Hcl* (Cyclobenzaprine Hcl*) 10 Mg Tablet, 10 MG PO Q8 Y for MUSCLE SPASMS, #60 TAB 06/14/17 Atorvastatin Calcium* (Atorvastatin Calcium*) 20 Mg Tablet, 20 MG PO QHS, #30 TAB 06/14/17 Aspirin* (Aspirin* Chew) 81 Mg Tab.chew, 81 MG PO DAILY, TAB.CHEW 06/14/17 Atorvastatin Calcium (Atorvastatin Calcium) 10 Mg Tablet, 10 MG PO QHS, #30 TAB 03/07/17 Fluoxetine Hcl* (Fluoxetine Hcl*) 40 Mg Capsule, 40 MG PO DAILY, CAP 03/07/17 Metformin* (Glucophage*) 500 Mg Tab, 500 MG PO WITH BREAKFAST, #30 TAB 03/07/17 Hydrocodone Bit-Acetaminophen (Hydrocodone Bit-APAP) 5-325MG Tablet, 1 TAB PO Q6H Y for PAIN, TAB 03/07/17 Glyburide* (Glyburide*) 5 Mg Tablet, 5 MG PO BID, #60 TAB 12/21/15 Ondansetron Hcl* (Ondansetron Hcl*) 8 Mg Tablet, 8 MG PO Q6H Y for NAUSEA AND OR VOMITING, TAB 10/30/15 Hydromorphone Hcl* (Hydromorphone Hcl*) 4 Mg Tablet, 4 MG PO Q4H Y for PAIN, TAB 10/30/15 Paroxetine Hcl* (Paroxetine*) 20 Mg Tablet, 20 MG PO DAILY, TAB 10/30/15 Albuterol Sulfate* (Ventolin HFA*) 18 Gm Hfa.aer.ad, 2 PUFF INHALATION Q4H, #1 INHALER 10/30/15 Carvedilol* (Carvedilol*) 12.5 Mg Tablet, 12.5 MG PO BID, #30 07/10/15 Isosorbide Mononitrate* (Isosorbide Mononitrate*) 60 Mg Tab.er.24h, 60 MG PO DAILY, #30 07/10/15 Nifedipine* (Adalat CC*) 60 Mg Tablet.sa, 60 MG PO DAILY, TAB.SA 10/06/14 Lisinopril* (Lisinopril*) 20 Mg Tablet, 20 MG PO DAILY, TAB 10/06/14 Donepezil* (Aricept*) 10 Mg Tablet, 10 MG PO DAILY, TAB 10/06/14 Pantoprazole* (Protonix*) 40 Mg Tablet.dr, 40 MG PO DAILY 03/04/13 Discontinued Reported Medications Hydrocodone/Acetaminophen ([place] 10-325 Tablet) 1 Each Tablet, 1 EACH PO, TAB 03/07/17 Hydromorphone Hcl* (Dilaudid*) 4 Mg Tablet, 4 MG PO BID Y for PAIN, TAB 12/22/15 Discontinued Scripts Fluconazole* (Diflucan*) 150 Mg Tablet, 150 MG PO ONCE, #1 TAB Prov:UZIEL STARKS MD 05/31/17 Ibuprofen* (Motrin*) 600 Mg Tab, 600 MG PO Q6, #20 TAB Prov:UZIEL STARKS MD 05/31/17 Hydrocodone/Acetaminophen ([place] 5-325 Tablet) 1 Each Tablet, 1 TAB PO Q6H Y for SEVERE PAIN LEVEL 7-10, #20 TAB Prov:CORONA CHAO NP 02/20/17 Zolpidem Tartrate* (Zolpidem Tartrate*) 10 Mg Tablet, 10 MG PO QHS Y for INSOMNIA, #30 Prov:HERIBERTO CASTELLANOS 10/15/15 Follow-up Plan Follow-up with your PCP in 1-2 weeks, discuss new diagnosis of pulmonary embolism and further refills of Xarelto Primary Care Provider Not On Staff Doctor Time spent on discharge: > 30 minutes TREVON CARDOZO Jun 14, 2017 14:22
--- NOTE | 2017-06-14 15:18 | PN ---
Date/Time of Note Date/Time of Note DATE: 06/14/17 TIME: 15:16 Assessment/Plan VTE Prophylaxis VTE Prophylaxis Intervention: LMWH Lines/Catheters IV Catheter Type (from Nrs): Saline Lock Assessment/Plan Chief Complaint/Hosp Course 1. Shortness of breath secondary to bilateral pulmonary embolism Patient has a history of blood clots and PEs in the past, status post IVC filter placement in the past Continue Lovenox 2. Chest pain Rule out ACS Troponins and echo Lipitor and aspirin 3. Diabetes Continue home meds 4. Hypertension Continue home meds 5. Depression Continue home Prozac 6. Morbid obesity Weight loss Prophylaxis: Lovenox Problems: Subjective 24 Hr Interval Summary Cardiovascular: chest pain Exam/Review of Systems Vital Signs Vitals Vital Signs Date Time Temp Pulse Resp B/P Pulse Ox O2 Delivery O2 Flow Rate FiO2 06/14/17 11:29 79 18 108/59 99 06/14/17 05:48 Room Air 06/13/17 21:38 98.4 Exam Constitutional: alert, oriented Respiratory: clear to auscultation Cardiovascular: regular rate and rhythm Gastrointestinal: soft, No distended Musculoskeletal: nl extremities to inspection Results Result Diagram: 06/13/17 2330 06/13/17 2330 Results 24 hrs Laboratory Tests Test 06/13/17 23:30 White Blood Count 6.2 Red Blood Count 4.22 Hemoglobin 11.2 L Hematocrit 35.3 L Mean Corpuscular Volume 83.6 Mean Corpuscular Hemoglobin 26.5 L Mean Corpuscular Hemoglobin Concent 31.7 L Red Cell Distribution Width 15.0 H Platelet Count 252 Mean Platelet Volume 11.5 H Neutrophils % 58.6 Lymphocytes % 26.0 Monocytes % 11.0 Eosinophils % 3.7 Basophils % 0.5 Nucleated Red Blood Cells % 0.0 Neutrophils # 3.6 Lymphocytes # 1.6 Monocytes # 0.7 Eosinophils # 0.2 Basophils # 0.0 Nucleated Red Blood Cells # 0.0 Prothrombin Time 12.9 Prothrombin Time Ratio 1.0 INR International Normalized Ratio 0.97 D-Dimer 1476.90 H D-Dimer Comment Sodium Level 142 Potassium Level 4.2 Chloride Level 103 Carbon Dioxide Level 28 Anion Gap 15 Blood Urea Nitrogen 13 Creatinine 0.91 Glucose Level 150 Calcium Level 10.0 Troponin I < 0.012 B-Type Natriuretic Peptide 26 Medications Medications Current Medications Acetaminophen (Tylenol Tab) 650 mg Q6H PRN PO PAIN LEVEL 1-3 OR FEVER; Start 06/14/17 at 05:30 Docusate Sodium (Colace) 100 mg Q12H PRN PO CONSTIPATION; Start 06/14/17 at 05 :30 Famotidine (Pepcid) 20 mg Q12 PO Last administered on 06/14/17 09:00; Admin Dose 20 MG; Start 06/14/17 at 09:00 Enoxaparin Sodium (Lovenox) 168 mg Q12 SC ; Start 06/14/17 at 13:00 Aspirin (Aspirin) 81 mg DAILY PO Last administered on 06/14/17 09:00; Admin Dose 81 MG; Start 06/14/17 at 09:00 Atorvastatin Calcium (Lipitor) 20 mg QHS PO ; Start 06/14/17 at 21:00 Carvedilol (Coreg) 12.5 mg BID PO ; Start 06/14/17 at 09:00 Cyclobenzaprine HCl (Flexeril) 10 mg Q8 PRN PO MUSCLE SPASMS; Start 06/14/17 at 05:30 Donepezil HCl (Aricept) 10 mg DAILY PO Last administered on 06/14/17 09:00; Admin Dose 10 MG; Start 06/14/17 at 09:00 Fluticasone Propionate (Flonase 0.05% Nasal) 1 spray BID NASAL Last administered on 06/14/17 10:03; Admin Dose 1 SPRAY; Start 06/14/17 at 09:00 Glyburide (Micronase) 5 mg BID PO Last administered on 06/14/17 10:04; Admin Dose 5 MG; Start 06/14/17 at 09:00 Hydromorphone HCl (Dilaudid) 4 mg Q4H PRN PO PAIN Last administered on 13:05; Admin Dose 4 MG; Start 06/14/17 at 05:30 Isosorbide Mononitrate (Imdur) 60 mg DAILY PO Last administered on 06/14/17 10:04; Admin Dose 60 MG; Start 06/14/17 at 09:00 Lisinopril (Zestril) 20 mg DAILY PO Last administered on 06/14/17 10:05; Admin Dose 20 MG; Start 06/14/17 at 09:00 Nifedipine (Procardia Xl) 60 mg DAILY PO Last administered on 06/14/17 10:05 ; Admin Dose 60 MG; Start 06/14/17 at 09:00 Ondansetron HCl (Zofran Tab) 8 mg Q6H PRN PO NAUSEA AND/OR VOMITING; Start at 05:30 Pantoprazole (Protonix Tab) 40 mg DAILY@06 PO Last administered on 06/14/17 06:00; Admin Dose 40 MG; Start 06/14/17 at 06:00 Loratadine (Claritin) 10 mg DAILY PO ; Start 06/15/17 at 09:00 Linagliptin (Tradjenta) 5 mg DAILY PO Last administered on 06/14/17 09:00; Admin Dose 5 MG; Start 06/14/17 at 09:00 TREVON CARDOZO Jun 14, 2017 15:18
[2017-06-14] MEDS ORDERED: GLUCOSE GEL 15 GRAM TUBE BUCCAL PRN (16:30)
[2017-06-14] MEDS ORDERED: GLUCOSE GEL 15 GRAM TUBE PO PRN ×2 (16:30)
[2017-06-14] MEDS ORDERED: GLUCAGON 1 MG INJ IM PRN (16:30)
[2017-06-14] MEDS ORDERED: DEXTROSE 50% 50 ML SYRINGE IV PRN ×2 (16:30)
[2017-06-14] MEDS: CYCLOBENZAPRINE 10 MG TAB PO PRN (17:47)
[2017-06-14 18:21] VITALS: BP 132/80; PULSE 60; RESP 18
[2017-06-14 18:35] VITALS: PULSE 96
[2017-06-14 20:00] VITALS: Ht 180.3 cm; Wt 168.0 kg
[2017-06-14 20:12] VITALS: PULSE 90
[2017-06-14] MEDS ORDERED: ATORVASTATIN 20 MG TAB PO SCH (21:00)
[2017-06-14] MEDS ORDERED: NON-FORMULARY/PATIENT OWN MED (Melatonin 5 MG) PO SCH (21:00)
[2017-06-15] VITALS (8 sets, daily range): BP systolic 100–133; BP diastolic 64–85; PULSE 76–90; RESP 16–18
[2017-06-15] MEDS: glyBURIDE 5 MG TAB PO SCH ×2 (01:29→09:55)
[2017-06-15] MEDS: HYDROmorphONE 4 MG TAB PO PRN ×2 (01:29→10:13)
[2017-06-15] MEDS: CYCLOBENZAPRINE 10 MG TAB PO PRN ×2 (02:25→12:29)
[2017-06-15] MEDS: PANTOPRAZOLE (EC) 40 MG TAB PO SCH (06:36)
[2017-06-15 08:48] LABS: CALCIUM 9.8 mg/dl (8.4-10.2); CREATININE 0.79 mg/dl (0.44-1.00); MAGNESIUM 1.6 mg/dl (1.7-2.5); POTASSIUM 3.8 mmol/L (3.5-5.1)
[2017-06-15] MEDS ORDERED: LORATADINE 10 MG TAB PO SCH (09:00)
[2017-06-15] MEDS ORDERED: MAGNESIUM OXIDE 400 MG TAB PO ONE (09:30)
[2017-06-15] MEDS: FAMOTIDINE 20 MG TAB PO SCH (09:54)
[2017-06-15] MEDS: LINAGLIPTIN 5 MG TABLET PO SCH (09:54)
[2017-06-15] MEDS: DONEPEZIL 10 MG TAB PO SCH (09:54)
[2017-06-15] MEDS: ISOSORBIDE MONONITRATE(SR)60 MG TAB PO SCH (09:55)
[2017-06-15] MEDS: metFORMIN 500 MG TAB PO SCH (09:55)
[2017-06-15] MEDS: ASPIRIN 81 MG TAB PO SCH (09:55)
[2017-06-15] MEDS: LISINOPRIL 20 MG TAB PO SCH (09:56)
[2017-06-15] MEDS: NIFEdipine (XL) 60 MG TAB PO SCH (09:56)
--- NOTE | 2017-06-15 10:01 | CONS ---
Date/Time of Note Date/Time of Note DATE: 06/15/17 TIME: 09:51 Consult Date/Type/Reason Admit Date/Time Jun 14, 2017 at 05:02 Initial Consult Date Type of Consultation: Pulm Subjective Complaining of mild pleuritic pain today. No hypoxia no hemoptysis no hemodynamic instability. Objective Vital Signs Date Time Temp Pulse Resp B/P Pulse Ox O2 Delivery O2 Flow Rate FiO2 06/15/17 08:07 83 06/15/17 07:48 98.3 18 133/85 93 06/14/17 18:21 Room Air Intake and Output 06/14/17 06/14/17 06/15/17 15:00 23:00 07:00 Intake Total 600 ml Output Total 3 ml Balance 597 ml Exam GENERAL: Morbidly obese lady comfortable at rest VITAL SIGNS: per chart NECK: Supple. No JVD or lymphadenopathy. CARDIAC EXAM: S1, S2. No added sounds or murmurs. CHEST: Diminished air entry bilaterally with rales right base. ABDOMEN: Soft, nontender. No guarding or rebound. EXTREMITIES: No cyanosis, clubbing or edema. NEUROLOGIC: Generalized weakness. No focal deficits. Results/Medications Result Diagram: 06/13/17 2330 06/15/17 0722 Results 24 hrs Laboratory Tests Test 06/14/17 19:39 06/14/17 21:06 06/15/17 00:21 06/15/17 07:22 Troponin I 0.013 < 0.012 Bedside Glucose 112 White Blood Count Pending Red Blood Count Pending Hemoglobin Pending Hematocrit Pending Mean Corpuscular Volume Pending Mean Corpuscular Hemoglobin Pending Mean Corpuscular Hemoglobin Concent Pending Red Cell Distribution Width Pending Platelet Count Pending Mean Platelet Volume Pending Sodium Level 140 Potassium Level 3.8 Chloride Level 100 Carbon Dioxide Level 28 Anion Gap 16 Blood Urea Nitrogen 10 Creatinine 0.79 Glucose Level 126 Hemoglobin A1c 7.5 H Calcium Level 9.8 Magnesium Level 1.6 L Medications Current Medications Acetaminophen (Tylenol Tab) 650 mg Q6H PRN PO PAIN LEVEL 1-3 OR FEVER; Start 06/14/17 at 05:30 Docusate Sodium (Colace) 100 mg Q12H PRN PO CONSTIPATION; Start 06/14/17 at 05 :30 Famotidine (Pepcid) 20 mg Q12 PO Last administered on 06/14/17 22:01; Admin Dose 20 MG; Start 06/14/17 at 09:00 Enoxaparin Sodium (Lovenox) 168 mg Q12 SC Last administered on 06/14/17 22:05 ; Admin Dose 168 MG; Start 06/14/17 at 13:00 Aspirin (Aspirin) 81 mg DAILY PO Last administered on 06/14/17 09:00; Admin Dose 81 MG; Start 06/14/17 at 09:00 Atorvastatin Calcium (Lipitor) 20 mg QHS PO Last administered on 06/14/17 22: 01; Admin Dose 20 MG; Start 06/14/17 at 21:00 Carvedilol (Coreg) 12.5 mg BID PO Last administered on 06/14/17 21:00; Admin Dose 12.5 MG; Start 06/14/17 at 09:00 Cyclobenzaprine HCl (Flexeril) 10 mg Q8 PRN PO MUSCLE SPASMS Last administered on 06/15/17 02:25; Admin Dose 10 MG; Start 06/14/17 at 05:30 Donepezil HCl (Aricept) 10 mg DAILY PO Last administered on 06/14/17 09:00; Admin Dose 10 MG; Start 06/14/17 at 09:00 Fluticasone Propionate (Flonase 0.05% Nasal) 1 spray BID NASAL Last administered on 06/14/17 21:00; Admin Dose 1 SPRAY; Start 06/14/17 at 09:00 Glyburide (Micronase) 5 mg BID PO Last administered on 06/15/17 01:29; Admin Dose 5 MG; Start 06/14/17 at 09:00 Hydromorphone HCl (Dilaudid) 4 mg Q4H PRN PO PAIN Last administered on 01:29; Admin Dose 4 MG; Start 06/14/17 at 05:30 Isosorbide Mononitrate (Imdur) 60 mg DAILY PO Last administered on 06/14/17 10:04; Admin Dose 60 MG; Start 06/14/17 at 09:00 Lisinopril (Zestril) 20 mg DAILY PO Last administered on 06/14/17 10:05; Admin Dose 20 MG; Start 06/14/17 at 09:00 Nifedipine (Procardia Xl) 60 mg DAILY PO Last administered on 06/14/17 10:05 ; Admin Dose 60 MG; Start 06/14/17 at 09:00 Ondansetron HCl (Zofran Tab) 8 mg Q6H PRN PO NAUSEA AND/OR VOMITING; Start at 05:30 Pantoprazole (Protonix Tab) 40 mg DAILY@06 PO Last administered on 06/15/17 06:36; Admin Dose 40 MG; Start 06/14/17 at 06:00 Loratadine (Claritin) 10 mg DAILY PO ; Start 06/15/17 at 09:00 Linagliptin (Tradjenta) 5 mg DAILY PO Last administered on 06/14/17 09:00; Admin Dose 5 MG; Start 06/14/17 at 09:00 Miscellaneous Information 1 ea NOTE XX ; Start 06/14/17 at 16:30 Glucose (Glutose) 15 gm Q15M PRN PO DECREASED GLUCOSE; Start 06/14/17 at 16:30 Glucose (Glutose) 22.5 gm Q15M PRN PO DECREASED GLUCOSE; Start 06/14/17 at 16: 30 Dextrose (D50w Syringe) 25 ml Q15M PRN IV DECREASED GLUCOSE; Start 06/14/17 at 16:30 Dextrose (D50w Syringe) 50 ml Q15M PRN IV DECREASED GLUCOSE; Start 06/14/17 at 16:30 Glucagon (Glucagen) 1 mg Q15M PRN IM DECREASED GLUCOSE; Start 06/14/17 at 16: 30 Glucose (Glutose) 15 gm Q15M PRN BUCCAL DECREASED GLUCOSE; Start 06/14/17 at 16:30 Assessment/Plan Chief Complaint/Hosp Course Assessment 1. Subsegmental pulmonary emboli 2. Chronic thromboembolic disease 3. History of IVC filter 4. Morbid obesity 5. Obstructive sleep apnea Plan 1. Continue anticoagulation factor Xa agent 2. Encourage ambulation 3. Outpatient sleep study evaluation. Patient states she has lost a CPAP device. Discharge planning okay from primary standpoint Problems: MARCY GUTIERREZ MD, [facility] Jun 15, 2017 10:01
[2017-06-15] MEDS: ENOXAPARIN 100 MG/ML SYG SC SCH (10:07)
[2017-06-15 10:33] LABS: BASOPHILS % 0.4 % (0.0-2.0); EOSINOPHILS # 0.2 10^3/ul (0.0-0.5); HEMATOCRIT 36.7 % (37.0-47.0); LYMPHOCYTES # 1.4 10^3/ul (0.8-2.9); LYMPHOCYTES % 26.1 % (15.0-51.0); MEAN CORPUSCULAR HEMOGLOBIN 26.9 pg (29.0-33.0); MEAN CORPUSCULAR HGB CONC 32.7 g/dl (32.0-37.0); MEAN CORPUSCULAR VOLUME 82.3 fl (82.0-101.0); MEAN PLATELET VOLUME 12.6 fl (7.4-10.4); MONOCYTE # 0.7 10^3/ul (0.3-0.9); MONOCYTES % 12.4 % (0.0-11.0); NEUTROPHIL # 3.1 10^3/ul (1.6-7.5); NEUTROPHILS % 57.9 % (39.0-77.0); PLATELET COUNT 255 10^3/UL (140-415); RED BLOOD COUNT 4.46 10^6/ul (4.20-5.40); RED CELL DISTRIBUTION WIDTH 14.8 % (11.5-14.5); WHITE BLOOD COUNT 5.3 10^3/ul (4.8-10.8)
[2017-06-15] MEDS: FLUTICASONE 0.05% 16 GM NAS SPRAY NASAL SCH (12:30)
--- NOTE | 2017-06-15 13:39 | DS ---
Date/Time of Note Date/Time of Note DATE: 06/15/17 TIME: 13:35 Discharge Summary Admission/Discharge Info Admit Date/Time Jun 14, 2017 at 05:02 Discharge Date/Time Discharge Diagnosis 1. Shortness of breath secondary to bilateral pulmonary embolism Patient has a history of blood clots and PEs in the past, status post IVC filter placement in the past DC with Xarelto 2. Morbid obesity Weight loss advised 3. Diabetes Continue home meds 4. Hypertension Continue home meds 5. Depression Continue home Prozac, patient denies taking Paxil and only takes Prozac 6. Chest pain likely secondary chronic pain and/or pulmonary embolism ACS ruled out Hospital Course Patient a 57-year-old female with history of morbid obesity, diabetes, hypertension, depression, likely chronic pain as well as multiple blood clots and pulmonary embolism status post IVC filter placed in the past. Patient presents with shortness of breath was found to have bilateral pulmonary embolisms on CTA of the chest. Patient does not have any significant shortness of breath on day of discharge and did not require any supplemental O2 and was not tachypneic. Patient was seen by pulmonology and was felt the patient was stable for DC with Xarelto. Of note patient did also report chest pain and ACS was ruled out, pain was likely secondary to her chronic pain and/or pulmonary embolism. Patient is to follow-up with her PCP in several weeks. On the day of discharge patient's vitals, labs and physical exam are stable she had no acute complaints questions answered. Home Meds Active Scripts Rivaroxaban* (Xarelto*) 20 Mg Tablet, 20 MG PO WITH DINNER for 30 Days, #30 TAB Then start this and F/U with your PCP for further treatment Prov:TREVON CARDOZO 06/14/17 Rivaroxaban* (Xarelto*) 15 Mg Tablet, 15 MG PO BID for 21 Days, #42 TAB Take this first Prov:TREVON CARDOZO 06/14/17 Meloxicam* (Mobic*) 15 Mg Tablet, 15 MG PO DAILY, #15 TAB Prov:HAILEY SANTOS DO 06/01/17 Melatonin (Melatonin) 5 Mg Tab.ir.er, 5 MG PO QHS, #30 Prov:MIRA BAUGH PA-C 04/24/17 Ondansetron (Ondansetron Odt) 4 Mg Tab.rapdis, 4 MG PO Q8 Y for NAUSEA AND/OR VOMITING, #30 TAB Prov:CORONA CHAO NP 04/22/17 Cetirizine Hcl* (Zyrtec*) 10 Mg Capsule, 10 MG PO DAILY, #30 TAB.CHEW Prov:CORONA CHAO NP 04/22/17 Fluticasone Propionate (Flonase Allergy Relief) 9.9 Ml [place].susp, 1 SPRAY NASAL BID, #1 BOTTLE TO EACH NOSTRIL Prov:CORONA CHAO NP 04/22/17 Azithromycin* (Zithromax*) 500 Mg Tablet, 500 MG PO DAILY for 3 Days, TAB Prov:CORONA CHAO NP 04/22/17 Ibuprofen* (Motrin*) 600 Mg Tab, 600 MG PO Q6, #30 TAB Prov:HESHAM FERREIRA 03/30/17 Cyclobenzaprine Hcl* (Cyclobenzaprine Hcl*) 10 Mg Tablet, 10 MG PO TID, #15 TAB Prov:CORONA CHAO NP 02/20/17 Ibuprofen* (Motrin*) 600 Mg Tab, 600 MG PO Q6H Y for PAIN AND OR ELEVATED TEMP, #30 TAB Prov:CORONA CHAO NP 02/20/17 Sitagliptin* (Januvia*) 100 Mg Tab, 100 MG PO DAILY for 30 Days, TAB 2 Refills Prov:HERIBERTO CASTELLANOS 10/15/15 Aspirin* (Aspirin*) 325 Mg Tablet, 81 MG PO DAILY for 30 Days Prov:HERIBERTO CASTELLANOS 10/15/15 Reported Medications Cyclobenzaprine Hcl* (Cyclobenzaprine Hcl*) 10 Mg Tablet, 10 MG PO Q8 Y for MUSCLE SPASMS, #60 TAB 06/14/17 Atorvastatin Calcium* (Atorvastatin Calcium*) 20 Mg Tablet, 20 MG PO QHS, #30 TAB 06/14/17 Aspirin* (Aspirin* Chew) 81 Mg Tab.chew, 81 MG PO DAILY, TAB.CHEW 06/14/17 Atorvastatin Calcium (Atorvastatin Calcium) 10 Mg Tablet, 10 MG PO QHS, #30 TAB 03/07/17 Fluoxetine Hcl* (Fluoxetine Hcl*) 40 Mg Capsule, 40 MG PO DAILY, CAP 03/07/17 Metformin* (Glucophage*) 500 Mg Tab, 500 MG PO WITH BREAKFAST, #30 TAB 03/07/17 Hydrocodone Bit-Acetaminophen (Hydrocodone Bit-APAP) 5-325MG Tablet, 1 TAB PO Q6H Y for PAIN, TAB 03/07/17 Glyburide* (Glyburide*) 5 Mg Tablet, 5 MG PO BID, #60 TAB 12/21/15 Ondansetron Hcl* (Ondansetron Hcl*) 8 Mg Tablet, 8 MG PO Q6H Y for NAUSEA AND OR VOMITING, TAB 10/30/15 Hydromorphone Hcl* (Hydromorphone Hcl*) 4 Mg Tablet, 4 MG PO Q4H Y for PAIN, TAB 10/30/15 Albuterol Sulfate* (Ventolin HFA*) 18 Gm Hfa.aer.ad, 2 PUFF INHALATION Q4H, #1 INHALER 10/30/15 Carvedilol* (Carvedilol*) 12.5 Mg Tablet, 12.5 MG PO BID, #30 07/10/15 Isosorbide Mononitrate* (Isosorbide Mononitrate*) 60 Mg Tab.er.24h, 60 MG PO DAILY, #30 07/10/15 Nifedipine* (Adalat CC*) 60 Mg Tablet.sa, 60 MG PO DAILY, TAB.SA 10/06/14 Lisinopril* (Lisinopril*) 20 Mg Tablet, 20 MG PO DAILY, TAB 10/06/14 Donepezil* (Aricept*) 10 Mg Tablet, 10 MG PO DAILY, TAB 10/06/14 Pantoprazole* (Protonix*) 40 Mg Tablet.dr, 40 MG PO DAILY 03/04/13 Discontinued Reported Medications Hydrocodone/Acetaminophen (Malone 10-325 Tablet) 1 Each Tablet, 1 EACH PO, TAB 03/07/17 Hydromorphone Hcl* (Dilaudid*) 4 Mg Tablet, 4 MG PO BID Y for PAIN, TAB 12/22/15 Discontinued Scripts Fluconazole* (Diflucan*) 150 Mg Tablet, 150 MG PO ONCE, #1 TAB Prov:UZIEL STARKS MD 05/31/17 Ibuprofen* (Motrin*) 600 Mg Tab, 600 MG PO Q6, #20 TAB Prov:UZIEL STARKS MD 05/31/17 Hydrocodone/Acetaminophen ([place] 5-325 Tablet) 1 Each Tablet, 1 TAB PO Q6H Y for SEVERE PAIN LEVEL 7-10, #20 TAB Prov:CORONA CHAO NP 02/20/17 Zolpidem Tartrate* (Zolpidem Tartrate*) 10 Mg Tablet, 10 MG PO QHS Y for INSOMNIA, #30 Prov:HERIBERTO CASTELLANOS 10/15/15 Follow-up Plan Follow-up with your PCP in 1-2 weeks, discuss new diagnosis of pulmonary embolism and further refills of Xarelto Primary Care Provider Not On Staff Doctor Time spent on discharge: > 30 minutes TREVON CARDOZO Jun 15, 2017 13:38
--- NOTE | 2017-06-16 09:50 | RADRPT ---
Echocardiogram Report Patient Name: ROSSANA YE Gender: Female Date: 1960 Study Date: 15-Jun-2017 Tack Picker: ANNE Location: I Ref. Physician: TREVON CARDOZO Quality: Technically Difficult Study Procedures: Transthoracic echocardiogram examination. Indications: Chest Pain. 2D/M Mode Doppler Measurement Value Normal Range Measurement Value Normal Range AoR Diam MM 2.9 cm LVIDd 2D 3.4 3.5 - 5.6 cm LVIDs 2D 2.3 2.1 - 4.1 cm LVPWd 2D 1.3 0.6 - 1.1 cm IVSd 2D 1.4 0.6 - 1.1 cm EDV 2D 46.3 cm3 ESV 2D 12.6 cm3 Findings Left Ventricle: Normal left ventricular cavity size. Unable to estimate function secondary to poor acoustic windows. Mild concentric left ventricular hypertrophy. Right Ventricle: Normal right ventricular size imaged only from parasternal window. Left Atrium: The left atrium is normal in size and appearance. Right Atrium: The right atrium is not well visualized. Atrial Septum: The atrial septum is not well visualized. Mitral Valve: Normal appearance of the mitral valve leaflets. No mitral valve regurgitation is seen. Aortic Valve: Normal appearance and function of the aortic valve. No hemodynamically significant aortic stenosis by Doppler. No aortic regurgitation. Tricuspid Valve: No evidence of obvious tricuspid regurgitation, TV not imaged well. Pulmonic Valve: The pulmonic valve is not well visualized. Pericardium: Normal pericardium with no significant pericardial effusion. No pleural effusion noted. Aorta: Normal aortic root. IVC: The inferior vena cava is not well visualized. Pulmonary Artery: Pulmonary artery is not well visualized. Conclusions 1.Normal left ventricular cavity size. Unable to estimate function secondary to poor acoustic windows. Mild concentric left ventricular hypertrophy. 2.Normal appearance and function of the aortic valve. No hemodynamically significant aortic stenosis by Doppler. No aortic regurgitation. 3.Normal appearance of the mitral valve leaflets. No mitral valve regurgitation is seen. 4.The atrial septum is not well visualized. 5.No evidence of obvious tricuspid regurgitation, TV not imaged well. 6.Normal pericardium with no significant pericardial effusion. No pleural effusion noted. 7.The pulmonic valve is not well visualized. Electronically Signed By: Meliza Sanchez 16-Jun-2017 09:50:26 -0800 Patient Name: ROSSANA YE Study Date: 15-Jun-2017 [id number]
== END 2017-06-15 18:10 | disposition home or self-care (01) | DRG 176 ==
LOC: FTE 21:34 → TEL 06-14 05:02
PROVIDERS: ADMIT Internal Medicine; ATTEND Internal Medicine
DX: I26.99 Other pulmonary embolism without acute cor pulmonale (principal); I11.0 Hypertensive heart disease with heart failure; I50.9 Heart failure, unspecified; Z68.43 Body mass index [BMI] 50.0-59.9, adult; E11.9 Type 2 diabetes mellitus without complications; J45.909 Unspecified asthma, uncomplicated; I48.91 Unspecified atrial fibrillation; G47.33 Obstructive sleep apnea (adult) (pediatric); E66.01 Morbid (severe) obesity due to excess calories; F32.9 Major depressive disorder, single episode, unspecified; G89.29 Other chronic pain; E78.5 Hyperlipidemia, unspecified; I87.8 Other specified disorders of veins; Z79.82 Long term (current) use of aspirin; Z96.652 Presence of left artificial knee joint; Z86.718 Personal history of other venous thrombosis and embolism; Z88.0 Allergy status to penicillin
CPT/HCPCS: 36415; 71010; 71275; 80048; 82962; 83036; 83735; 83880; 84484; 85025; 85378; 85610; 90471; 93005; 93306; J1170; J1650; Q9967

== ENCOUNTER 2017-06-21 21:32 | Emergency (ER) | payer OTHER ==
[~2017-06-21] VITALS: Ht 182.9 cm; Wt 155.9 kg
[~2017-06-21 21:32] MED LIST changes: +ASPI81TA3 PO; +ATOR20TA38 PO; -FLUC150T17 PO; -HYDR-902 PO; -HYDR-906 PO; -HYDR4TAB51 PO; -PARO-37 PO; +RIVA15TA PO; +RIVA20TA PO; -ZOLP10TA5 PO
[2017-06-21 21:35] VITALS: Ht 182.9 cm; Wt 155.9 kg
[2017-06-21 23:20] VITALS: BP 134/76; PULSE 74; RESP 20; TEMP 98.4
--- NOTE | 2017-06-21 23:38 | ERD ---
ER Documentation Chief Complaint Chief Complaint Generalized body pain HPI The patient is a 57-year-old female, presenting to the ER because of general body pain since gi. She was admitted recently and was found to have PE and treated with Xarelto. She already had IVC filter.. Denies fever, cough, neck pain, chest pain, dyspnea, abdominal pain, vomiting, dysuria, diarrhea. She does not smoke nor drink Past medical history: Diabetes mellitus, hypertension, depression, chronic pain syndrome, history of PE ROS All systems reviewed and are negative except as per history of present illness. Medications Home Meds Active Scripts Rivaroxaban* (Xarelto*) 20 Mg Tablet, 20 MG PO WITH DINNER for 30 Days, #30 TAB Then start this and F/U with your PCP for further treatment Prov:SARAH CARDOZOViky 06/14/17 Rivaroxaban* (Xarelto*) 15 Mg Tablet, 15 MG PO BID for 21 Days, #42 TAB Take this first Prov:TREVON CARDOZO 06/14/17 Meloxicam* (Mobic*) 15 Mg Tablet, 15 MG PO DAILY, #15 TAB Prov:HAILEY SANTOS DO 06/01/17 Melatonin (Melatonin) 5 Mg Tab.ir.er, 5 MG PO QHS, #30 Prov:MIRA BAUGH PA-C 04/24/17 Ondansetron (Ondansetron Odt) 4 Mg Tab.rapdis, 4 MG PO Q8 Y for NAUSEA AND/OR VOMITING, #30 TAB Prov:CORONA CHAO NP 04/22/17 Cetirizine Hcl* (Zyrtec*) 10 Mg Capsule, 10 MG PO DAILY, #30 TAB.CHEW Prov:CORONA CHAO NP 04/22/17 Fluticasone Propionate (Flonase Allergy Relief) 9.9 Ml [place].susp, 1 SPRAY NASAL BID, #1 BOTTLE TO EACH NOSTRIL Prov:CORONA CHAO NP 04/22/17 Azithromycin* (Zithromax*) 500 Mg Tablet, 500 MG PO DAILY for 3 Days, TAB Prov:CORONA CHAO NP 04/22/17 Ibuprofen* (Motrin*) 600 Mg Tab, 600 MG PO Q6, #30 TAB Prov:HESHAM FERREIRA 03/30/17 Cyclobenzaprine Hcl* (Cyclobenzaprine Hcl*) 10 Mg Tablet, 10 MG PO TID, #15 TAB Prov:CORONA CHAO RISK CONSULTANT 02/20/17 Ibuprofen* (Motrin*) 600 Mg Tab, 600 MG PO Q6H Y for PAIN AND OR ELEVATED TEMP, #30 TAB Prov:CORONA CHAO RISK CONSULTANT 02/20/17 Sitagliptin* (Januvia*) 100 Mg Tab, 100 MG PO DAILY for 30 Days, TAB 2 Refills Prov:MEDHAT CASTELLANOSJhonny Mcdonald. 10/15/15 Aspirin* (Aspirin*) 325 Mg Tablet, 81 MG PO DAILY for 30 Days Prov:JASMINHERIBERTO Mcdonald. 10/15/15 Reported Medications Cyclobenzaprine Hcl* (Cyclobenzaprine Hcl*) 10 Mg Tablet, 10 MG PO Q8 Y for MUSCLE SPASMS, #60 TAB 06/14/17 Atorvastatin Calcium* (Atorvastatin Calcium*) 20 Mg Tablet, 20 MG PO QHS, #30 TAB 06/14/17 Aspirin* (Aspirin* Chew) 81 Mg Tab.chew, 81 MG PO DAILY, TAB.CHEW 06/14/17 Atorvastatin Calcium (Atorvastatin Calcium) 10 Mg Tablet, 10 MG PO QHS, #30 TAB 03/07/17 Fluoxetine Hcl* (Fluoxetine Hcl*) 40 Mg Capsule, 40 MG PO DAILY, CAP 03/07/17 Metformin* (Glucophage*) 500 Mg Tab, 500 MG PO WITH BREAKFAST, #30 TAB 03/07/17 Hydrocodone Bit-Acetaminophen (Hydrocodone Bit-APAP) 5-325MG Tablet, 1 TAB PO Q6H Y for PAIN, TAB 03/07/17 Glyburide* (Glyburide*) 5 Mg Tablet, 5 MG PO BID, #60 TAB 12/21/15 Ondansetron Hcl* (Ondansetron Hcl*) 8 Mg Tablet, 8 MG PO Q6H Y for NAUSEA AND OR VOMITING, TAB 10/30/15 Hydromorphone Hcl* (Hydromorphone Hcl*) 4 Mg Tablet, 4 MG PO Q4H Y for PAIN, TAB 10/30/15 Albuterol Sulfate* (Ventolin HFA*) 18 Gm Hfa.aer.ad, 2 PUFF INHALATION Q4H, #1 INHALER 10/30/15 Carvedilol* (Carvedilol*) 12.5 Mg Tablet, 12.5 MG PO BID, #30 07/10/15 Isosorbide Mononitrate* (Isosorbide Mononitrate*) 60 Mg Tab.er.24h, 60 MG PO DAILY, #30 07/10/15 Nifedipine* (Adalat CC*) 60 Mg Tablet.sa, 60 MG PO DAILY, TAB.SA 10/06/14 Lisinopril* (Lisinopril*) 20 Mg Tablet, 20 MG PO DAILY, TAB 10/06/14 Donepezil* (Aricept*) 10 Mg Tablet, 10 MG PO DAILY, TAB 10/06/14 Pantoprazole* (Protonix*) 40 Mg Tablet.dr, 40 MG PO DAILY 03/04/13 Allergies Allergies: Coded Allergies: Penicillins (Unverified Allergy, Unknown, 06/14/17) PMhx/Soc History of Surgery: Yes (hysterectomy, left knee, BILATERAL BREAST, BILATERAL WRIST ) Anesthesia Reaction: No Hx Neurological Disorder: No Hx Respiratory Disorders: No Hx Cardiac Disorders: Yes (HTN, A-fib) Hx Psychiatric Problems: Yes (anxiety) Hx Miscellaneous Medical Probl: No Hx Alcohol Use: No Hx Substance Use: No Hx Tobacco Use: No Physical Exam Vitals Vital Signs Date Time Temp Pulse Resp B/P Pulse Ox O2 Delivery O2 Flow Rate FiO2 06/21/17 23:20 98.4 74 20 134/76 97 Room Air 06/21/17 21:35 98.4 109 20 134/76 95 Physical Exam Const: No acute distress. Head: Atraumatic. Eyes: Normal Conjunctiva. ENT: Normal External Ears, Nose and Mouth. Neck: Full range of motion. No meningismus. Resp: Clear to auscultation bilaterally. Cardio: Regular rate and rhythm. Abd: Soft, non distended, normal bowel sounds, non tender. Skin: No petechiae or rashes. Back: No midline or flank tenderness. Ext: No cyanosis, or edema. Neur: Awake and alert. No focal deficit Psych: Normal Mood and Affect. Results 24 hrs Current Medications Medications (Trade) Dose Ordered Sig/Tanvi Route PRN Reason Start Time Stop Time Status Last Admin Dose Admin Acetaminophen/ Hydrocodone Bitart (Index (5/325)) 1 tab ONCE ONCE PO 06/22/17 00:00 06/22/17 00:01 DC 06/22/17 00:00 Procedures/MDM EKG: Read by emergency physician Rate/Rhythm: Normal Sinus Rhythm 98 beats/min QRS, ST, T-waves: No ST elevation, no T inversion, RBBB Impression: Abnormal EKG MEDICAL MAKING DECISION: The patient is a 57-year-old female, presenting with chronic general body pain. She was treated with Index 10 mg p.o. with good response The differential diagnoses considered include but are not limited to chronic pain syndrome, fibromyalgia, diabetes, pneumonia Departure Diagnosis: Primary Impression: Myalgia Condition: Good Comments I discussed the findings with the patient. I advised the patient to follow-up with the primary physician in about 1-2 days, sooner if needed and return if any concern. Disclaimer: Inadvertent spelling and grammatical errors are likely due to EHR/ dictation software use and do not reflect on the overall quality of patient care. Also, please note that the electronic time recorded on this note does not necessarily reflect the actual time of the patient encounter. UZIEL STARKS MD Jun 21, 2017 23:38
[2017-06-22] MEDS ORDERED: HYDROCODONE/APAP (5/325) TAB PO ONE
== END 2017-06-22 01:27 | disposition home or self-care (01) ==
LOC: E/R 21:32
DX: M79.1 Myalgia (principal); E11.9 Type 2 diabetes mellitus without complications; I10 Essential (primary) hypertension; Z79.82 Long term (current) use of aspirin; Z79.01 Long term (current) use of anticoagulants; Z79.84 Long term (current) use of oral hypoglycemic drugs
CPT/HCPCS: Z7502; Z7610; 93005; 99283

== ENCOUNTER 2017-07-08 19:17 | Emergency (ER) | payer OTHER ==
[~2017-07-08] VITALS: Ht 181.6 cm; Wt 168.0 kg
[~2017-07-08 19:17] MED LIST changes: -RIVA20TA PO; +RIVA20TA5 PO
[2017-07-08 19:43] VITALS: Ht 181.6 cm; Wt 168.0 kg
[2017-07-08 20:08] LABS: ANION GAP 12 (8-16); BLOOD UREA NITROGEN 12 mg/dl (7-20); CALCIUM 9.7 mg/dl (8.4-10.2); CARBON DIOXIDE 28 mmol/L (21-31); CHLORIDE 100 mmol/L (97-110); CREATININE 0.72 mg/dl (0.44-1.00); GLUCOSE 182 mg/dl (70-220); PARTIAL THROMBOPLASTIN TIME 40.5 Sec (25.0-35.0); POTASSIUM 4.4 mmol/L (3.5-5.1); SODIUM 136 mmol/L (135-144)
[2017-07-08 20:12] LABS: INR 1.73; PROTIME 20.6 Sec (11.9-14.9); PT RATIO 1.6
[2017-07-08 20:21] LABS: TROPONIN-I < 0.012 ng/ml (0.00-0.12)
[2017-07-08 20:24] LABS: BASOPHILS % 0.4 % (0.0-2.0); EOSINOPHILS # 0.2 10^3/ul (0.0-0.5); EOSINOPHILS % 2.4 % (0.0-7.0); HEMATOCRIT 35.5 % (37.0-47.0); HEMOGLOBIN 11.5 g/dl (12.0-16.0); LYMPHOCYTES # 1.7 10^3/ul (0.8-2.9); LYMPHOCYTES % 23.1 % (15.0-51.0); MEAN CORPUSCULAR HEMOGLOBIN 26.6 pg (29.0-33.0); MEAN CORPUSCULAR HGB CONC 32.4 g/dl (32.0-37.0); MEAN PLATELET VOLUME 12.6 fl (7.4-10.4); MONOCYTE # 0.8 10^3/ul (0.3-0.9); MONOCYTES % 10.9 % (0.0-11.0); NEUTROPHIL # 4.5 10^3/ul (1.6-7.5); NEUTROPHILS % 63.1 % (39.0-77.0); PLATELET COUNT 233 10^3/UL (140-415); RED BLOOD COUNT 4.33 10^6/ul (4.20-5.40); WHITE BLOOD COUNT 7.1 10^3/ul (4.8-10.8)
--- NOTE | 2017-07-08 20:53 | RADRPT ---
PROCEDURE: XR Chest. CLINICAL INDICATION: Chest pain. TECHNIQUE: Portable AP upright view of the chest was obtained. COMPARISON: CT chest 06/14/2017 FINDINGS: The cardiomediastinal silhouette is within normal limits. The lungs are clear, no focal acute infil trates are demonstrated. There is no evidence for pleural effusion, pneumothorax or pulmonary vascu lar congestion. The osseous structures are intact with no evidence for acute abnormality. RPTAT:HJJR IMPRESSION: No evidence for acute intrathoracic pathology. Physician Brittany Date Time Electronically viewed and signed by Physician Brittany on 07/08/2017 20:53 /
[2017-07-08] MEDS ORDERED: FLUO20CA22 PO (21:35)
[2017-07-08] MEDS ORDERED: GABA-528 PO (21:35)
[2017-07-08] MEDS ORDERED: POTA20TA96 PO (21:36)
[2017-07-08] MEDS ORDERED: DIAZ10TA4 PO (21:36)
[2017-07-08] MEDS ORDERED: PARO20TA58 PO (21:37)
[2017-07-08] MEDS ORDERED: OXYC-279 PO (21:37)
[2017-07-08] MEDS ORDERED: NAPR-688 PO (21:38)
[2017-07-08] MEDS ORDERED: LORA0.5T PO (21:38)
--- NOTE | 2017-07-08 22:09 | ERD ---
ER Documentation Chief Complaint Chief Complaint on and off chest pain since 3pm today HPI 57-year-old female with a history of pulmonary embolism, hypertension, diabetes , chronic pain brought in by ambulance for left-sided chest pain that has been on and off since 3 PM. She has had associated shortness of breath. She was recently diagnosed with a pulmonary embolism about 1 month ago and started on Xarelto which she has been taking daily as prescribed. Her pain has been constant, mostly with deep breathing. No associated diaphoresis, nausea, vomiting. She complains of chronic bilateral knee pain as well. Patient does endorse that her son was killed in 2000 and she recently found out the truth about it which has been causing her a lot of anxiety and depression. However she denies any suicidal or homicidal ideations. ROS All systems reviewed and are negative except as per history of present illness. Medications Home Meds Active Scripts Lorazepam* (Lorazepam*) 1 Mg Tablet, 1 MG PO Q8H Y for ANXIETY, #5 TAB Prov:PEDRO SEVILLA MD 07/08/17 Sitagliptin* (Januvia*) 100 Mg Tab, 100 MG PO DAILY for 30 Days, TAB 2 Refills Prov:HERIBERTO CASTELLANOS 10/15/15 Reported Medications Lorazepam* (Lorazepam*) 0.5 Mg Tablet, 0.5 MG PO Q6 Y for ANXIETY, TAB 07/08/17 Naproxen* (Naproxen*) 500 Mg Tablet, 500 MG PO BID, TAB 07/08/17 Oxycodone HCl/Acetaminophen (Percocet 5-325 mg Tablet) 1 Each Tablet, 1 EACH PO Q8H, TAB 07/08/17 Paroxetine Hcl* (Paxil*) 20 Mg Tablet, 20 MG PO HS, TAB 07/08/17 Potassium Chloride* (Potassium Chloride*) 20 Meq Tablet.er, 20 MEQ PO DAILY, TAB.SA 07/08/17 Diazepam* (Diazepam*) 10 Mg Tablet, 10 MG PO Q8H, TAB 07/08/17 Fluoxetine Hcl* (Fluoxetine Hcl*) 20 Mg Capsule, 20 MG PO DAILY, CAP 07/08/17 Gabapentin* (Gabapentin*) 800 Mg Tablet, 800 MG PO TID, #90 TAB 07/08/17 Cyclobenzaprine Hcl* (Cyclobenzaprine Hcl*) 10 Mg Tablet, 10 MG PO Q8 Y for MUSCLE SPASMS, #60 TAB 06/14/17 Aspirin* (Aspirin* Chew) 81 Mg Tab.chew, 81 MG PO DAILY, TAB.CHEW 06/14/17 Metformin* (Glucophage*) 500 Mg Tab, 500 MG PO WITH BREAKFAST DINNE, #30 TAB 03/07/17 Hydrocodone Bit-Acetaminophen (Hydrocodone Bit-APAP) 5-325MG Tablet, 1 TAB PO Q6H Y for PAIN, TAB 03/07/17 Glyburide* (Glyburide*) 5 Mg Tablet, 5 MG PO BID, #60 TAB 12/21/15 Ondansetron Hcl* (Ondansetron Hcl*) 8 Mg Tablet, 8 MG PO Q6H Y for NAUSEA AND OR VOMITING, TAB 10/30/15 Hydromorphone Hcl* (Hydromorphone Hcl*) 4 Mg Tablet, 4 MG PO Q4H Y for PAIN, TAB 10/30/15 Carvedilol* (Carvedilol*) 12.5 Mg Tablet, 12.5 MG PO BID, #30 07/10/15 Isosorbide Mononitrate* (Isosorbide Mononitrate*) 60 Mg Tab.er.24h, 60 MG PO DAILY, #30 07/10/15 Nifedipine* (Adalat CC*) 60 Mg Tablet.sa, 60 MG PO DAILY, TAB.SA 10/06/14 Lisinopril* (Lisinopril*) 20 Mg Tablet, 20 MG PO DAILY, TAB 10/06/14 Donepezil* (Aricept*) 10 Mg Tablet, 10 MG PO DAILY, TAB 10/06/14 Pantoprazole* (Protonix*) 40 Mg Tablet.dr, 40 MG PO DAILY 03/04/13 Discontinued Reported Medications Atorvastatin Calcium* (Atorvastatin Calcium*) 20 Mg Tablet, 20 MG PO QHS, #30 TAB 06/14/17 Atorvastatin Calcium (Atorvastatin Calcium) 10 Mg Tablet, 10 MG PO QHS, #30 TAB 03/07/17 Fluoxetine Hcl* (Fluoxetine Hcl*) 40 Mg Capsule, 40 MG PO DAILY, CAP 03/07/17 Albuterol Sulfate* (Ventolin HFA*) 18 Gm Hfa.aer.ad, 2 PUFF INHALATION Q4H, #1 INHALER 10/30/15 Discontinued Scripts Rivaroxaban* (Xarelto*) 20 Mg Tablet, 20 MG PO WITH DINNER for 30 Days, #30 TAB Then start this and F/U with your PCP for further treatment Prov:TREVON CARDOZO 06/14/17 Rivaroxaban* (Xarelto*) 15 Mg Tablet, 15 MG PO BID for 21 Days, #42 TAB Take this first Prov:TREVON CARDOZO 06/14/17 Meloxicam* (Mobic*) 15 Mg Tablet, 15 MG PO DAILY, #15 TAB Prov:TOMHAILEY DO 06/01/17 Melatonin (Melatonin) 5 Mg Tab.ir.er, 5 MG PO QHS, #30 Prov:MIRA BAUGH PA-C 04/24/17 Ondansetron (Ondansetron Odt) 4 Mg Tab.rapdis, 4 MG PO Q8 Y for NAUSEA AND/OR VOMITING, #30 TAB Prov:CORONA CHAO NP 04/22/17 Cetirizine Hcl* (Zyrtec*) 10 Mg Capsule, 10 MG PO DAILY, #30 TAB.CHEW Prov:CORONA CHAO NP 04/22/17 Fluticasone Propionate (Flonase Allergy Relief) 9.9 Ml Blunt.susp, 1 SPRAY NASAL BID, #1 BOTTLE TO EACH NOSTRIL Prov:CORONA CHAO NP 04/22/17 Azithromycin* (Zithromax*) 500 Mg Tablet, 500 MG PO DAILY for 3 Days, TAB Prov:CORONA CHAO NP 04/22/17 Ibuprofen* (Motrin*) 600 Mg Tab, 600 MG PO Q6, #30 TAB Prov:HESHAM FERREIRA 03/30/17 Cyclobenzaprine Hcl* (Cyclobenzaprine Hcl*) 10 Mg Tablet, 10 MG PO TID, #15 TAB Prov:CORONA CHAO NP 02/20/17 Ibuprofen* (Motrin*) 600 Mg Tab, 600 MG PO Q6H Y for PAIN AND OR ELEVATED TEMP, #30 TAB Prov:CORONA CHAO NP 02/20/17 Aspirin* (Aspirin*) 325 Mg Tablet, 81 MG PO DAILY for 30 Days Prov:HERIBERTO CASTELLANOS 10/15/15 Allergies Allergies: Coded Allergies: Penicillins (Unverified Allergy, Unknown, 07/08/17) erythromycin base (Unverified Allergy, Unknown, 07/08/17) PMhx/Soc History of Surgery: Yes (hysterectomy, left knee, BILATERAL BREAST, BILATERAL WRIST ) Anesthesia Reaction: No Hx Neurological Disorder: No Hx Respiratory Disorders: No Hx Cardiac Disorders: Yes (HTN, A-fib) Hx Psychiatric Problems: Yes (anxiety) Hx Miscellaneous Medical Probl: No Hx Alcohol Use: No Hx Substance Use: No Hx Tobacco Use: No FmHx Family History: diabetes Physical Exam Vitals Vital Signs Date Time Temp Pulse Resp B/P Pulse Ox O2 Delivery O2 Flow Rate FiO2 07/08/17 19:43 97.9 88 17 137/86 100 Physical Exam Const: Obese, no apparent distress, nontoxic, no diaphoresis Head: Atraumatic Eyes: Normal Conjunctiva ENT: Normal External Ears, Nose and Mouth. Neck: Full range of motion..~ No meningismus. No JVD, but limited due to body habitus Resp: Diminished breath sounds bilaterally, likely secondary to body habitus. Clear to auscultation bilaterally without wheezing or rales Cardio: Regular rate and rhythm, no murmurs Abd: Soft, non tender, non distended. Normal bowel sounds Skin: No petechiae or rashes Back: No midline or flank tenderness Ext: No cyanosis, or edema Neur: Awake and alert Psych: Normal Mood and Affect Result Diagram: 07/08/17194307/08/171943 Results 24 hrs Laboratory Tests Test 07/08/17 19:44 White Blood Count 7.110^3/ul Red Blood Count 4.3310^6/ul Hemoglobin 11.5g/dl Hematocrit 35.5% Mean Corpuscular Volume 82.0fl Mean Corpuscular Hemoglobin 26.6pg Mean Corpuscular Hemoglobin Concent 32.4g/dl Red Cell Distribution Width 15.0% Platelet Count 73569^3/UL Mean Platelet Volume 12.6fl Neutrophils % 63.1% Lymphocytes % 23.1% Monocytes % 10.9% Eosinophils % 2.4% Basophils % 0.4% Nucleated Red Blood Cells % 0.0/100WBC Neutrophils # 4.510^3/ul Lymphocytes # 1.710^3/ul Monocytes # 0.810^3/ul Eosinophils # 0.210^3/ul Basophils # 0.010^3/ul Nucleated Red Blood Cells # 0.010^3/ul Prothrombin Time 20.6Sec Prothrombin Time Ratio 1.6 INR International Normalized Ratio 1.73 Activated Partial Thromboplast Time 40.5Sec Sodium Level 136mmol/L Potassium Level 4.4mmol/L Chloride Level 100mmol/L Carbon Dioxide Level 28mmol/L Anion Gap 12 Blood Urea Nitrogen 12mg/dl Creatinine 0.72mg/dl Glucose Level 182mg/dl Calcium Level 9.7mg/dl Troponin I < 0.012ng/ml Current Medications Medications (Trade) Dose Ordered Sig/Tanvi Route PRN Reason Start Time Stop Time Status Last Admin Dose Admin Lorazepam (Ativan) 1 mg ONCE ONCE PO 07/08/17 22:30 07/08/17 22:31 07/08/17 22:15 Procedures/MDM EMERGENT LABS AND DIAGNOSTIC STUDIES: Lab Results above were reviewed and interpreted by me. CBC, BMP, troponin within normal limits 12-lead EKG was interpreted by Britta Sevilla MD: Normal Sinus Rhythm with ventricular rate of 98 beats per minute Intraventricular conduction delay No acute ST or T wave changes suggestive of acute ischemia or STEMI. Radiology Results as interpreted by Radiology below were reviewed by Yahir Sevilla MD: Chest x-ray shows no acute abnormalities Initial Nursing notes reviewed. Previous Medical Records requested via the Electronic Health Record. EMERGENCY DEPARTMENT COURSE / MEDICAL DECISION MAKING: Patient is presenting with acute on chronic pleuritic chest pain. Her vitals are stable and she is satting well on room air. She was given aspirin prior to arrival in the ambulance and nitroglycerin, however she is refusing any more nitroglycerin. Her pain is at a 5 out of 10 at this time. EKG does not show evidence of ischemia. Her prehospital EKG was concerning for possible inferior [place], however I reviewed the EKGs and I do not suspect acute coronary syndrome. I compared her EKG from today to prior EKGs and there is no acute change. Her initial troponin is within normal limits. She does have a pulmonary embolism, which would cause her pain. However I do not think that there is any propagation of her clot burden. I have a low suspicion for pneumonia or esophageal perforation. I reevaluated the patient and she states she does she feels very anxious and would like Ativan. I did offer her Ativan orally. She states she has a follow-up with her primary care doctor in 2 days. She is also planning on going to mental health for her ongoing depression. However she does not meet any criteria for psychiatric hospitalization or involuntary hold at this time. I believe the patient is stable for discharge and return precautions were discussed. Patient's blood pressure was elevated (>120/80) but appears stable without evidence of hypertensive emergency or urgency. The patient was counseled about the risks of hypertension and urged to pursue outpatient monitoring and therapy within a week with their primary care physician. Departure Diagnosis: Primary Impression: Chest pain Chest pain type: chest pain on breathing Qualified Code: R07.1 - Chest pain on breathing Additional Impression: Depressed Depression Type: unspecified Qualified Code: F32.9 - Depression, unspecified depression type Condition: Stable PEDRO SEVILLA MD Jul 08, 2017 22:09
[2017-07-08] MEDS ORDERED: LORA1TAB PO (22:11)
[2017-07-08] MEDS ORDERED: LORAZEPAM 1 MG TAB PO ONE (22:30)
[2017-07-08] MEDS ORDERED: ATOR20TA38 PO (22:32)
[2017-07-08] MEDS ORDERED: KETOROLAC 30 MG INJ IV STA (22:39)
[2017-07-08 22:55] VITALS: BP 130/86; PULSE 71; RESP 17; TEMP 98.5
== END 2017-07-08 23:37 | disposition home or self-care (01) ==
LOC: E/R 19:17
DX: F32.9 Major depressive disorder, single episode, unspecified (principal); R07.1 Chest pain on breathing; I10 Essential (primary) hypertension; E11.9 Type 2 diabetes mellitus without complications; Z79.82 Long term (current) use of aspirin; Z79.84 Long term (current) use of oral hypoglycemic drugs
CPT/HCPCS: 36415; 71010; 80048; 84484; 85025; 85610; 85730; 93005; 96374; J1885; Z7502; Z7610

== ENCOUNTER 2017-07-15 22:04 | Emergency (ER) | payer OTHER ==
[~2017-07-15] VITALS: Ht 180.3 cm; Wt 168.2 kg
[~2017-07-15 22:04] MED LIST changes: -ALBU18HF INHALATION; -ASPI325T4 PO; -ATOR10TA65 PO; -AZIT500T3 PO; -CETI10CA PO; +DIAZ10TA4 PO; +FLUO20CA22 PO; -FLUO40CA PO; -FLUT9.9S NASAL; +GABA-528 PO; -IBUP-1542 PO; +LORA0.5T PO; +LORA1TAB PO; -MELA5TAB21 PO; -MELO-210 PO; +NAPR-688 PO; -ONDA4TAB14 PO; +OXYC-279 PO; +PARO20TA58 PO; +POTA20TA96 PO; -RIVA15TA PO; -RIVA20TA5 PO
[2017-07-15 22:16] VITALS: Ht 180.3 cm; Wt 168.2 kg
[2017-07-16] MEDS ORDERED: SOD CHLORIDE 0.9% 500 ML IV STA (02:10)
[2017-07-16] MEDS ORDERED: ASPIRIN 325 MG TAB PO STA (02:10)
--- NOTE | 2017-07-16 02:21 | ERD ---
ER Documentation Chief Complaint Chief Complaint chest pain x 2 days. also c/o bilateral leg pain HPI This 57-year-old female comes in complaining of chest pain for 2 days and some shortness of breath. She has a history of pulmonary embolism. The chest pain is midsternum and is a sharp and pressure-like pain that does not radiate. She has it at rest. Complains of multiple areas of musculoskeletal pain including her back both shoulders. 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 Denies fevers chills. ROS All systems reviewed and are negative except as per history of present illness. Medications Home Meds Active Scripts Naproxen* (Naprosyn*) 500 Mg Tablet, 500 MG PO BID, #20 TAB Prov:HAILEY SANTOS DO 07/16/17 Orphenadrine Citrate (Norflex) 100 Mg Tablet.sa, 100 MG PO BID for MUSCLE SPASMS , #20 TAB.SA Prov:HAILEY SANTOS DO 07/16/17 Lorazepam* (Lorazepam*) 1 Mg Tablet, 1 MG PO Q8H Y for ANXIETY, #5 TAB Prov:PEDRO MOELLER MD 07/08/17 Sitagliptin* (Januvia*) 100 Mg Tab, 100 MG PO DAILY for 30 Days, TAB 2 Refills Prov:HERIBERTO CASTELLANOS 10/15/15 Reported Medications Atorvastatin Calcium* (Atorvastatin Calcium*) 20 Mg Tablet, 20 MG PO QHS, #30 TAB 07/08/17 Lorazepam* (Lorazepam*) 0.5 Mg Tablet, 0.5 MG PO Q6 Y for ANXIETY, TAB 07/08/17 Naproxen* (Naproxen*) 500 Mg Tablet, 500 MG PO BID, TAB 07/08/17 Oxycodone HCl/Acetaminophen (Percocet 5-325 mg Tablet) 1 Each Tablet, 1 EACH PO Q8H, TAB 07/08/17 Paroxetine Hcl* (Paxil*) 20 Mg Tablet, 20 MG PO HS, TAB 07/08/17 Potassium Chloride* (Potassium Chloride*) 20 Meq Tablet.er, 20 MEQ PO DAILY, TAB.SA 07/08/17 Diazepam* (Diazepam*) 10 Mg Tablet, 10 MG PO Q8H, TAB 07/08/17 Fluoxetine Hcl* (Fluoxetine Hcl*) 20 Mg Capsule, 20 MG PO DAILY, CAP 07/08/17 Gabapentin* (Gabapentin*) 800 Mg Tablet, 800 MG PO TID, #90 TAB 07/08/17 Cyclobenzaprine Hcl* (Cyclobenzaprine Hcl*) 10 Mg Tablet, 10 MG PO Q8 Y for MUSCLE SPASMS, #60 TAB 06/14/17 Aspirin* (Aspirin* Chew) 81 Mg Tab.chew, 81 MG PO DAILY, TAB.CHEW 06/14/17 Metformin* (Glucophage*) 500 Mg Tab, 500 MG PO WITH BREAKFAST DINNE, #30 TAB 03/07/17 Hydrocodone Bit-Acetaminophen (Hydrocodone Bit-APAP) 5-325MG Tablet, 1 TAB PO Q6H Y for PAIN, TAB 03/07/17 Glyburide* (Glyburide*) 5 Mg Tablet, 5 MG PO BID, #60 TAB 12/21/15 Ondansetron Hcl* (Ondansetron Hcl*) 8 Mg Tablet, 8 MG PO Q6H Y for NAUSEA AND OR VOMITING, TAB 10/30/15 Hydromorphone Hcl* (Hydromorphone Hcl*) 4 Mg Tablet, 4 MG PO Q4H Y for PAIN, TAB 10/30/15 Carvedilol* (Carvedilol*) 12.5 Mg Tablet, 12.5 MG PO BID, #30 07/10/15 Isosorbide Mononitrate* (Isosorbide Mononitrate*) 60 Mg Tab.er.24h, 60 MG PO DAILY, #30 07/10/15 Nifedipine* (Adalat CC*) 60 Mg Tablet.sa, 60 MG PO DAILY, TAB.SA 10/06/14 Lisinopril* (Lisinopril*) 20 Mg Tablet, 20 MG PO DAILY, TAB 10/06/14 Donepezil* (Aricept*) 10 Mg Tablet, 10 MG PO DAILY, TAB 10/06/14 Pantoprazole* (Protonix*) 40 Mg Tablet.dr, 40 MG PO DAILY 03/04/13 Allergies Allergies: Coded Allergies: Penicillins (Unverified Allergy, Unknown, 07/16/17) erythromycin base (Unverified Allergy, Unknown, 07/16/17) PMhx/Soc History of Surgery: Yes (hysterectomy, left knee, BILATERAL BREAST, BILATERAL WRIST ) Anesthesia Reaction: No Hx Neurological Disorder: No Hx Respiratory Disorders: No Hx Cardiac Disorders: Yes (HTN, A-fib) Hx Psychiatric Problems: Yes (anxiety) Hx Miscellaneous Medical Probl: No Hx Alcohol Use: No Hx Substance Use: No Hx Tobacco Use: No Physical Exam Vitals Vital Signs Date Time Temp Pulse Resp B/P Pulse Ox O2 Delivery O2 Flow Rate FiO2 07/15/17 22:16 99.0 100 20 141/80 97 Physical Exam Const: [] Mild distress, appears short of breath after walking to the bed, morbidly obese Head: Atraumatic Eyes: Normal Conjunctiva ENT: Normal External Ears, Nose and Mouth. Neck: Full range of motion..~ No meningismus. Resp: Clear to auscultation bilaterally Cardio: Regular rate and rhythm, no murmurs Skin: No petechiae or rashes Back: No midline or flank tenderness Ext: No cyanosis, or edema Neur: Awake and alert oriented 3. Psych: Normal Mood and Affect Result Diagram: 07/16/17 0350 07/16/17 0350 Results 24 hrs Laboratory Tests Test 07/16/17 03:50 White Blood Count 6.410^3/ul Red Blood Count 4.3410^6/ul Hemoglobin 11.7g/dl Hematocrit 35.7% Mean Corpuscular Volume 82.3fl Mean Corpuscular Hemoglobin 27.0pg Mean Corpuscular Hemoglobin Concent 32.8g/dl Red Cell Distribution Width 15.2% Platelet Count 53683^3/UL Mean Platelet Volume 12.1fl Neutrophils % 60.5% Lymphocytes % 27.0% Monocytes % 8.6% Eosinophils % 3.1% Basophils % 0.5% Nucleated Red Blood Cells % 0.0/100WBC Neutrophils # 3.910^3/ul Lymphocytes # 1.710^3/ul Monocytes # 0.610^3/ul Eosinophils # 0.210^3/ul Basophils # 0.010^3/ul Nucleated Red Blood Cells # 0.010^3/ul Prothrombin Time 17.6Sec Prothrombin Time Ratio 1.4 INR International Normalized Ratio 1.42 Activated Partial Thromboplast Time 41.7Sec Sodium Level 140mmol/L Potassium Level 4.4mmol/L Chloride Level 99mmol/L Carbon Dioxide Level 30mmol/L Anion Gap 15 Blood Urea Nitrogen 16mg/dl Creatinine 0.76mg/dl Glucose Level 251mg/dl Calcium Level 10.3mg/dl Troponin I Pending B-Type Natriuretic Peptide Pending Current Medications Medications (Trade) Dose Ordered Sig/Tanvi Route PRN Reason Start Time Stop Time Status Last Admin Dose Admin Sodium Chloride (NS) 500 ml @ 500 mls/hr Q1H STAT IV 07/16/17 02:10 07/16/17 03:09 DC 07/16/17 02:10 Aspirin (Aspirin) 325 mg ONCE STAT PO 07/16/17 02:10 07/16/17 02:12 DC IV Flush 10 ml 10 ml STK-MED ONCE .ROUTE 07/16/17 02:27 07/16/17 02:28 DC Sodium Chloride 100 ml @ ud STK-MED ONCE .ROUTE 07/16/17 02:27 07/16/17 02:28 DC Iohexol (Omnipaque) 100 ml @ ud STK-MED ONCE .ROUTE 07/16/17 02:27 07/16/17 02:28 DC Iohexol (Omnipaque 350mg/ ml) 50 ml STK-MED ONCE .ROUTE 07/16/17 02:28 07/16/17 02:29 DC Ketorolac Tromethamine (Toradol) 30 mg ONCE STAT IV 07/16/17 04:16 07/16/17 04:17 DC 07/16/17 04:31 Procedures/MDM Chest pain and shortness of breath and female with chronic pulmonary embolism. I have seen her multiple times previously. She also had some musculoskeletal complaints and was given Toradol which did help with her pain. Was given 325 mg aspirin. She remains stable on the monitor. Does have diabetic hyperglycemia for which I did give her 500 cc of normal saline. No signs of acute infection. No signs of acute coronary ischemia. CT pulmonary angiogram is pending will be followed by the oncoming physician. Anticipate if this is negative, or unchanged then she will be discharged home with primary care follow -up and instructions to obtain a cardiac echo. Discharging her with Norflex for muscle spasms. EKG interpretation: Normal sinus rhythm rate of 94, normal axis, no ST or T- wave changes concerning for acute ischemia. Normal intervals. Possible left atrial enlargement. surveillance system monitor interpretation: Normal sinus rhythm without arrhythmia Departure Diagnosis: Primary Impression: Chest pain Additional Impressions: Dyspnea Chronic pain Hyperglycemia due to type 2 diabetes mellitus Morbid obesity with BMI of 50.0-59.9, adult Condition: Stable HAILEY SANTOS DO Jul 16, 2017 02:21
[2017-07-16] MEDS ORDERED: SOD CHLORIDE 0.9% 100 ML ONE (02:27)
[2017-07-16] MEDS ORDERED: IOHEXOL 100 ML ONE (02:27)
[2017-07-16] MEDS ORDERED: IOHEXOL 350MG/ML 50 ML BTL ONE (02:28)
[2017-07-16] MEDS ORDERED: KETOROLAC 30 MG INJ IV STA (04:16)
[2017-07-16 04:17] LABS: BASOPHILS % 0.5 % (0.0-2.0); EOSINOPHILS # 0.2 10^3/ul (0.0-0.5); EOSINOPHILS % 3.1 % (0.0-7.0); HEMATOCRIT 35.7 % (37.0-47.0); HEMOGLOBIN 11.7 g/dl (12.0-16.0); LYMPHOCYTES # 1.7 10^3/ul (0.8-2.9); MEAN CORPUSCULAR HGB CONC 32.8 g/dl (32.0-37.0); MEAN CORPUSCULAR VOLUME 82.3 fl (82.0-101.0); MEAN PLATELET VOLUME 12.1 fl (7.4-10.4); MONOCYTE # 0.6 10^3/ul (0.3-0.9); MONOCYTES % 8.6 % (0.0-11.0); NEUTROPHIL # 3.9 10^3/ul (1.6-7.5); NEUTROPHILS % 60.5 % (39.0-77.0); PLATELET COUNT 210 10^3/UL (140-415); RED BLOOD COUNT 4.34 10^6/ul (4.20-5.40); RED CELL DISTRIBUTION WIDTH 15.2 % (11.5-14.5); WHITE BLOOD COUNT 6.4 10^3/ul (4.8-10.8)
[2017-07-16] MEDS ORDERED: NAPR-260 PO (05:05)
[2017-07-16] MEDS ORDERED: ORPH100T PO (05:05)
[2017-07-16 05:25] LABS: ANION GAP 15 (8-16); BLOOD UREA NITROGEN 16 mg/dl (7-20); CALCIUM 10.3 mg/dl (8.4-10.2); CARBON DIOXIDE 30 mmol/L (21-31); CHLORIDE 99 mmol/L (97-110); CREATININE 0.76 mg/dl (0.44-1.00); GLUCOSE 251 mg/dl (70-220); POTASSIUM 4.4 mmol/L (3.5-5.1); SODIUM 140 mmol/L (135-144)
[2017-07-16 05:36] LABS: INR 1.42; PROTIME 17.6 Sec (11.9-14.9); PT RATIO 1.4
[2017-07-16 05:37] LABS: PARTIAL THROMBOPLASTIN TIME 41.7 Sec (25.0-35.0)
[2017-07-16] MEDS ORDERED: SOD CHLORIDE 0.9% 500 ML IV ONE (06:30)
[2017-07-16 06:33] LABS: B-TYPE NATRIURETIC PEPTIDE < 11 PG/ML (0-125)
--- NOTE | 2017-07-16 06:56 | RADRPT ---
PROCEDURE: CT angiogram of the chest with contrast. CLINICAL INDICATION: Chest pain. Shortness of breath. History of pulmonary emboli. TECHNIQUE: CT scan of the chest with contrast was performed on a multidetector high-resolution CT scan. The patient was scanned following the uncomplicated intravenous administration of 90 ml Omnip aque 350. Coronal and sagittal reformatted images were obtained from the axial source images. Standa rd CT angiogram of the chest with contrast protocols were performed. 2-D and 3-D reformats were perf ormed. The total exam CTDI equals 56.34 mGy and the total exam DLP equals 900.01 mGy-cm. One or more of the following dose reduction techniques were used: - Automated exposure control. - Adjustment of the mA and/or kV according to patient size. Use of iterative reconstruction technique. Dicom images are available COMPARISON: CT pulmonary angiogram 06/14/2017 FINDINGS: Study is limited due to a fairly extensive streak artifact. The pulmonary outflow tract, right and l eft main pulmonary arteries, the right and left interlobar and primary intersegmental pulmonary jase jackie are enhance without definite filling defects. Specifically no definite central pulmonary emboli . Negative for pulmonary arterial hypertension. No evidence of right heart strain. Aorta unremarkable without aneurysm or dissection. Brachial cephalic artery, right and left subclavi an arteries, proximal right and left common carotid and vertebral arteries, celiac axis and those po rtions of the SMA visualized are unremarkable. Solitary right and left renal arteries unremarkable. Infrarenal IVC filter unremarkable. Heart is mildly enlarged without pericardial effusion. No evidence of pleural effusions and pneumoth oraces. Negative for mediastinal hilar or axillary lymphadenopathy. Mild bibasilar atelectasis. No e vidence of acute lung infiltrates or pulmonary nodules bilaterally. Hepatomegaly without focal hepatic lesions. Remaining images of the mid and upper abdomen visualized demonstrate no abnormality. Thoracic and upper abdominal wall unremarkable. Degenerative changes of the cervical and upper lumbar spine but no acute osseous findings are osteoblastic/osteolytic lesio ns. IMPRESSION: 1. Streaky artifact resulting in suboptimal evaluation. 2. Infrarenal inferior vena caval filter in place. 3. No evidence of central pulmonary emboli. 4. No aortic aneurysm or dissection. 5. Mild cardiomegaly without thoracic effusions, pulmonary nodules or lymphadenopathy. Mild bibasil ar atelectasis. 6. Hepatomegaly. RPTAT:AAJJ Ash Pickett Physician Date Time Electronically viewed and signed by Ash Pickett Physician on 07/16/2017 06:56 SABRINA/
[2017-07-16 07:16] LABS: TROPONIN-I < 0.012 ng/ml (0.00-0.12)
--- NOTE | 2017-07-16 07:48 | EN ---
Date/Time of Note Date/Time of Note DATE: 07/16/17 TIME: 07:43 ER Progress Note Observation Note Subjective: This patient was signed out to me by Dr. Ray at 6 AM on July 16, 2017. Briefly, this is a 57-year-old female with a history of a previous PE who is presenting with chest pain. At time of signout, her symptoms had improved, but Dr. Ray wanted to evaluate for PE with imaging. The patient was pending a CTA of the chest. Family history: As indicated on the initial history and physical of this ER visit Objective: Vital signs reviewed Const: No apparent distress, well-developed, well-nourished Head: Normocephalic, Atraumatic Eyes: Normal Conjunctiva. ENT: Normal External Ears, Nose and Mouth. Neck: No meningismus. Resp: Symmetric chest wall esteban, no audible wheezes Cardio: Deferred Abd: Non distended Skin: No petechiae or rashes Back: Deferred Ext: No cyanosis, or edema Neur: Awake and alert. No facial droop. Normal strength and sensation. Psych: Normal mood and affect Assessment: Chest Pain Plan: The patient CT of the chest was completed. It was read by the radiologist as follows: FINDINGS: Study is limited due to a fairly extensive streak artifact. The pulmonary outflow tract, right and left main pulmonary arteries, the right and left interlobar and primary intersegmental pulmonary arteries are enhance without definite filling defects. Specifically no definite central pulmonary emboli. Negative for pulmonary arterial hypertension. No evidence of right heart strain. Aorta unremarkable without aneurysm or dissection. Brachial cephalic artery, right and left subclavian arteries, proximal right and left common carotid and vertebral arteries, celiac axis and those portions of the SMA visualized are unremarkable. Solitary right and left renal arteries unremarkable. Infrarenal IVC filter unremarkable. Heart is mildly enlarged without pericardial effusion. No evidence of pleural effusions and pneumothoraces. Negative for mediastinal hilar or axillary lymphadenopathy. Mild bibasilar atelectasis. No evidence of acute lung infiltrates or pulmonary nodules bilaterally. Hepatomegaly without focal hepatic lesions. Remaining images of the mid and upper abdomen visualized demonstrate no abnormality. Thoracic and upper abdominal wall unremarkable. Degenerative changes of the cervical and upper lumbar spine but no acute osseous findings are osteoblastic/osteolytic lesions. IMPRESSION: 1. Streaky artifact resulting in suboptimal evaluation. 2. Infrarenal inferior vena caval filter in place. 3. No evidence of central pulmonary emboli. 4. No aortic aneurysm or dissection. 5. Mild cardiomegaly without thoracic effusions, pulmonary nodules or lymphadenopathy. Mild bibasilar atelectasis. 6. Hepatomegaly. Electronically viewed and signed by Physician Sarah on 07/16/2017 06:56 At this time, I feel that the patient stable for discharge. After review of Dr. Ray's report, there is stronger consideration for possible muscle spasm as a cause of her symptoms. She understands the need to follow-up for reevaluation. The patient will need follow-up with his primary care physician in 2-3 days. The patient will be given strict precautions with which to return to the emergency department. The patient's blood pressure was elevated at greater than 120/80 while in the emergency department. The patient was otherwise stable with no evidence of hypertensive urgency or emergency or end organ damage. The patient does not require admission for blood pressure control. I have discussed with the patient the risks of hypertension. I have advised the patient to follow up with the primary care physician for outpatient monitoring and treatment for hypertension in 2-3 days. I have instructed the patient to return to the ER for any new or worsening symptoms including chest pain, shortness of breath, headache, blurred vision, confusion, nausea, vomiting or LOC. Disclaimer: Inadvertent spelling and grammatical errors are likely due to EHR/ dictation software use and do not reflect on the overall quality of patient care. Note that the electronic time recorded on this note does not necessarily reflect the actual time of the patient encounter. MARLI SIMMS MD Jul 16, 2017 07:48
[2017-07-16 09:00] VITALS: BP 144/100; PULSE 96; RESP 18; TEMP 98.8
== END 2017-07-16 09:00 | disposition home or self-care (01) ==
LOC: E/R 22:04
DX: R07.9 Chest pain, unspecified (principal); R06.00 Dyspnea, unspecified; G89.29 Other chronic pain; E11.65 Type 2 diabetes mellitus with hyperglycemia; I10 Essential (primary) hypertension; E66.01 Morbid (severe) obesity due to excess calories; Z79.84 Long term (current) use of oral hypoglycemic drugs; Z79.82 Long term (current) use of aspirin; Z68.43 Body mass index [BMI] 50.0-59.9, adult
CPT/HCPCS: 36415; 71275; 80048; 83880; 84484; 85025; 85610; 85730; 93005; 96374; J1885; J7040; Q9967; Z7502; Z7610

== ENCOUNTER 2017-07-16 11:33 | Emergency (ER) | payer OTHER ==
[~2017-07-16 11:33] MED LIST changes: +NAPR-260 PO; +ORPH100T PO
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
== END 2017-07-16 12:24 | disposition home or self-care (01) ==
LOC: E/R 11:33
DX: R45.1 Restlessness and agitation (principal); I10 Essential (primary) hypertension; Z79.82 Long term (current) use of aspirin
CPT/HCPCS: 99283

== ENCOUNTER 2017-09-12 07:41 | Inpatient (IN) | END 2017-09-15 18:55 | disposition home or self-care (01) | DRG 194 ==

== ENCOUNTER 2017-10-17 17:46 | Emergency (ER) | END 2017-10-18 10:53 | disposition home or self-care (01) ==

== ENCOUNTER 2017-11-02 02:15 | Emergency (ER) | END 2017-11-02 09:39 | disposition home or self-care (01) ==

== ENCOUNTER 2017-11-21 22:32 | Emergency (ER) | END 2017-11-22 02:26 | disposition home or self-care (01) ==

== ENCOUNTER 2017-12-06 18:32 | Emergency (ER) | END 2017-12-06 22:15 | disposition home or self-care (01) ==

== ENCOUNTER 2017-12-23 15:57 | Emergency (ER) | END 2017-12-23 16:27 | disposition home or self-care (01) ==

== ENCOUNTER 2018-01-11 17:32 | Emergency (ER) | END 2018-01-11 21:25 | disposition home or self-care (01) ==

== ENCOUNTER 2018-01-18 20:00 | Emergency (ER) | END 2018-01-18 22:20 | disposition left against medical advice (07) ==

== ENCOUNTER 2018-02-09 20:57 | Emergency (ER) | END 2018-02-09 23:53 | disposition home or self-care (01) ==

== ENCOUNTER 2018-04-02 10:07 | Emergency (ER) | END 2018-04-02 12:00 | disposition home or self-care (01) ==

== ENCOUNTER 2018-05-07 23:27 | Emergency (ER) | END 2018-05-08 01:05 | disposition home or self-care (01) ==

== ENCOUNTER 2018-05-19 01:18 | Observation (INO) | END 2018-05-20 20:33 | disposition left against medical advice (07) ==

== ENCOUNTER 2018-06-07 19:37 | Emergency (ER) | END 2018-06-07 23:50 | disposition home or self-care (01) ==

== ENCOUNTER 2018-06-18 16:07 | Emergency (ER) | END 2018-06-18 22:51 | disposition home or self-care (01) ==

== ENCOUNTER 2018-11-11 15:56 | Emergency (ER) | payer OTHER ==
[~2018-11-11] VITALS: Ht 172.7 cm; Wt 170.0 kg
[~2018-11-11 15:56] MED LIST changes: -ASPI81TA3 PO; -ATOR20TA38 PO; -CARV12.579 PO; -CYCL-319 PO; -DIAZ10TA4 PO; -DONE10TA7 PO; +FLUO10TA PO; -FLUO20CA22 PO; -GABA-528 PO; -GLYB5TAB3 PO; -HYDR-3498 PO; -HYDR4TAB PO; +IBUP-1542 PO; +IBUP800T48 PO; -ISOS60TA PO; -LISI20TA11 PO; -LORA0.5T PO; -LORA1TAB PO; -METF500T4 PO; -NAPR-260 PO; -NAPR-688 PO; -NIFE60TA36 PO; -ONDA8TAB83 PO; -ORPH100T PO; -OXYC-279 PO; -PANT40TA3 PO; -PARO20TA58 PO; -POTA20TA96 PO; -SITA100T8 PO
[2018-11-11 16:03] VITALS: BP 149/91; PULSE 105; RESP 20; Ht 172.7 cm; Wt 170.0 kg
--- NOTE | 2018-11-11 19:54 | ERD ---
ER Documentation Chief Complaint Chief Complaint pt is bib self with c/o back pain starting 2 wks ago, hx DVT filter "broke" HPI Patient is a 58-year-old female with a history of chronic pain who presents with right upper back pain. She said that it started last week. She said that she has pain with breathing. She took Dilaudid today. She says that she has an appointment with her blood bank laboratory technologist Dr. Stewart tomorrow. Upon review of old med ical records the patient has multiple visits for pain complaints. Review of the emergency department information exchange system shows visits to 9 separate emergency departments for a total of 51 visits over the past 1 year. ROS All systems reviewed and are negative except as per history of present illness. Medications Home Meds Active Scripts Ibuprofen* (Motrin*) 800 Mg Tab, 800 MG PO Q6H PRN for PAIN AND OR ELEVATED TEMP, #20 TAB Prov:JULIUS DEWITT 06/18/18 Ibuprofen* (Motrin*) 600 Mg Tab, 600 MG PO Q6H PRN for PAIN AND OR ELEVATED TEMP, #30 TAB Prov:ANNAMARIE PALENCIA MD 06/07/18 Reported Medications Ibuprofen* (Ibuprofen*) 600 Mg Tablet, 600 MG PO Q8, TAB 05/08/18 Fluoxetine Hcl* (Fluoxetine Hcl*) 10 Mg Tablet, 10 MG PO DAILY, TAB 05/08/18 Allergies Allergies: Coded Allergies: Penicillins (Unverified Allergy, Unknown, 05/08/18) erythromycin base (Unverified Allergy, Unknown, 05/08/18) PMhx/Soc History of Surgery: Yes (APPECTOMY, L. KNEE REPLACEMENT) Anesthesia Reaction: No Hx Neurological Disorder: No Hx Respiratory Disorders: Yes (COPD, SLEEP APNEA) Hx Cardiac Disorders: Yes (HTN, AFIB, dvt, PE, DM) Hx Psychiatric Problems: Yes (DEPRESSION) Hx Miscellaneous Medical Probl: Yes (L TKR,IVC filter,obesity, electric chair) Hx Alcohol Use: No Hx Substance Use: No Hx Tobacco Use: No FmHx Family History: diabetes Physical Exam Vitals Vital Signs Date Temp Pulse Resp B/P (MAP) Pulse Ox O2 O2 Flow FiO2 Time Delivery Rate 11/11/18 98.9 105 20 149/91 93 16:03 (110) Physical Exam Const: No acute distress Head: Atraumatic Eyes: Normal Conjunctiva ENT: Normal External Ears, Nose and Mouth. Neck: Full range of motion. No meningismus. Resp: Clear to auscultation bilaterally Cardio: Regular rate and rhythm, no murmurs Abd: Soft, non tender, non distended. Normal bowel sounds Skin: No petechiae or rashes Back: Right upper back pain tenderness to palpation without deformity noted Ext: No cyanosis, or edema Neur: Awake patient in a wheelchair chronically Procedures/MDM Patient is a 58-year-old female presents with acute on chronic pain. The patient has no obvious serious etiology at this time. I doubt traumatic injury. I doubt pulmonary embolism or acute coronary syndrome. I believe outpatient management is appropriate but the patient will need close follow-up with her blood bank laboratory technologist tomorrow with her scheduled appointment. The patient can return for any worsening symptoms. I told her we would not give her any narcotic medicines in the emergency department. Departure Diagnosis: Primary Impression: Back pain Back pain location: back pain in other location Chronicity: acute Qualified Codes: M54.9 - Dorsalgia, unspecified Condition: Stable Patient Instructions: Back Pain (Acute Or Chronic) Referrals: Your doctor Additional Instructions: Call your primary care doctor TOMORROW for an appointment during the next 1-2 days.See the doctor sooner or return here if your condition worsens before your appointment time. ANNAMARIE PALENCIA MD Nov 11, 2018 19:54
== END 2018-11-11 17:22 | disposition left against medical advice (07) ==
LOC: E/R 15:56
DX: M54.6 Pain in thoracic spine (principal); I10 Essential (primary) hypertension; E11.9 Type 2 diabetes mellitus without complications; J44.9 Chronic obstructive pulmonary disease, unspecified; E66.9 Obesity, unspecified; Z68.43 Body mass index [BMI] 50.0-59.9, adult; Z96.652 Presence of left artificial knee joint
CPT/HCPCS: 99282

== ENCOUNTER 2019-04-08 15:37 | Emergency (ER) | payer OTHER ==
[~2019-04-08] VITALS: Ht 180.3 cm; Wt 168.2 kg
[~2019-04-08 15:37] MED LIST changes: +ASPI-817 PO; +ATOR10TA65 PO; +CARV12.579 PO; +CETI10TA19 PO; +CYCL10TA7 PO; +DIAZ5TAB PO; +DONE5TAB53 PO; +DULO20CA18 PO; +FLUT9.9S NASAL; +GABA-528 PO; +HYDR4TAB51 PO; +INSU100I33 SC; +ISOS60TA PO; +LISI40TA3 PO; +NAPR-985 PO; +NATE120T12 PO; +NIFE60TA18 PO; +NPH10OT BOTH EARS; +OMEP40CA38 PO; +POTA10TA37 PO; +QUET50TA PO; +RANI150T5 PO
[2019-04-08 15:40] VITALS: Ht 180.3 cm; Wt 168.2 kg
[2019-04-08] MEDS ORDERED: ONDANSETRON (ODT) 4 MG TAB ODT STA (15:41)
[2019-04-08] MEDS ORDERED: HYDROCODONE/APAP (10/325) TAB PO ONE (16:00)
[2019-04-08] MEDS ORDERED: DIAZEPAM 5 MG TAB PO ONE (18:00)
[2019-04-08 18:38] VITALS: BP 135/66; PULSE 85; RESP 18
== END 2019-04-08 18:38 | disposition home or self-care (01) ==
LOC: E/R 15:37
DX: S80.01XA Contusion of right knee, initial encounter (principal); S80.02XA Contusion of left knee, initial encounter; S90.32XA Contusion of left foot, initial encounter; F41.9 Anxiety disorder, unspecified; I10 Essential (primary) hypertension; E11.9 Type 2 diabetes mellitus without complications; J44.9 Chronic obstructive pulmonary disease, unspecified; E66.9 Obesity, unspecified; W18.39XA Other fall on same level, initial encounter; Y92.9 Unspecified place or not applicable; Z68.43 Body mass index [BMI] 50.0-59.9, adult; Z96.652 Presence of left artificial knee joint; Z79.82 Long term (current) use of aspirin; Z79.4 Long term (current) use of insulin
CPT/HCPCS: 29515; 73562; 73610; 73630; Z7502; Z7610

== ENCOUNTER 2019-04-13 13:48 | Emergency (ER) | payer OTHER ==
[~2019-04-13] VITALS: Ht 177.8 cm; Wt 181.8 kg
[~2019-04-13 13:48] MED LIST changes: -FLUO10TA PO; -IBUP-1542 PO
[2019-04-13 13:58] VITALS: Ht 177.8 cm; Wt 181.8 kg
[2019-04-13] MEDS ORDERED: KETOROLAC 30 MG INJ IM STA (16:30)
[2019-04-13 17:07] VITALS: BP 152/88; PULSE 89; RESP 17
== END 2019-04-13 17:08 | disposition home or self-care (01) ==
LOC: FTE 13:48
DX: M79.672 Pain in left foot (principal); M25.572 Pain in left ankle and joints of left foot; I10 Essential (primary) hypertension; E11.9 Type 2 diabetes mellitus without complications; J44.9 Chronic obstructive pulmonary disease, unspecified; E66.9 Obesity, unspecified; Z68.43 Body mass index [BMI] 50.0-59.9, adult; Z96.652 Presence of left artificial knee joint
CPT/HCPCS: 73630; 93971; 96372; J1885; Z7502

== ENCOUNTER 2019-04-16 19:37 | Emergency (ER) | payer OTHER ==
[~2019-04-16] VITALS: Ht 165.1 cm; Wt 150.0 kg
[2019-04-16 19:39] VITALS: Ht 165.1 cm; Wt 150.0 kg
[2019-04-16 19:57] VITALS: BP 126/65; PULSE 65; RESP 20
== END 2019-04-16 20:19 | disposition home or self-care (01) ==
LOC: E/R 19:37
DX: M79.672 Pain in left foot (principal); E11.9 Type 2 diabetes mellitus without complications; I10 Essential (primary) hypertension; J44.9 Chronic obstructive pulmonary disease, unspecified; Z79.82 Long term (current) use of aspirin; Z79.84 Long term (current) use of oral hypoglycemic drugs
CPT/HCPCS: 99282

== ENCOUNTER 2019-04-16 23:25 | Emergency (ER) | payer OTHER ==
[~2019-04-16] VITALS: Ht 180.3 cm; Wt 159.1 kg
[2019-04-16 23:36] VITALS: Ht 180.3 cm; Wt 159.1 kg
== END 2019-04-17 03:33 | disposition home or self-care (01) ==
LOC: E/R 23:25
DX: T21.02XA Burn of unspecified degree of abdominal wall, initial encounter (principal); I10 Essential (primary) hypertension; E11.9 Type 2 diabetes mellitus without complications; J44.9 Chronic obstructive pulmonary disease, unspecified; E66.9 Obesity, unspecified; X12.XXXA Contact with other hot fluids, initial encounter; Y92.9 Unspecified place or not applicable; Z68.42 Body mass index [BMI] 45.0-49.9, adult; Z79.82 Long term (current) use of aspirin; Z79.4 Long term (current) use of insulin; Z96.652 Presence of left artificial knee joint
CPT/HCPCS: 99282